=== PATIENT | female | born 1975 | race Caucasian/White ===

== ENCOUNTER → 2018-03-24 10:40 | Outpatient (CLI) | payer BC, SELFPAY ==
[2018-03-24 11:02] LABS: Basophils % 0.4 % (0.1-2.0); Eosinophils # 0.1 K/mm3 (0.0-0.4); Eosinophils % 0.8 % (0.1-12.0); Hemoglobin 13.2 g/dL (12.2-16.2); Lymphocytes # 1.8 K/mm3 (0.7-4.5); Lymphocytes % 21.7 K/mm3 (10-50); Mean Corpuscular HGB Conc 33.8 g/dL (31.8-35.4); Mean Corpuscular Hemoglobin 28.9 pg (27.0-31.2); Mean Corpuscular Volume 85.5 fl (81-99); Mean Platelet Volume 7.6 fl (7.4-10.4); Monocytes # 0.3 K/mm3 (0.1-1.0); Monocytes % 3.7 % (1.7-9.3); Neutrophils % 73.4 % (37.0-80.0); Platelet Count 347 K/mm3 (142-424); Red Blood Count 4.57 M/mm3 (4.20-5.40); Red Cell Distribution Width 12.7 % (11.5-17.5); White Blood Count 8.1 K/mm3 (4.8-10.8)
[2018-03-24 12:10] LABS: Alanine Aminotransferase 11 U/L (12-78); Albumin Level 3.3 gm/dL (3.4-5.0); Albumin/Globulin Ratio 0.9 (1.1-1.8); Alkaline Phosphatase 63 U/L (46-116); Anion Gap 15.4 mEq/L (5-15); Aspartate Amino Transferase 9 U/L (15-37); Bilirubin,Total 0.3 mg/dL (0.2-1.0); Blood Urea Nitrogen 9 mg/dL (7-18); Carbon Dioxide 23 mmol/L (21.0-32.0); Chloride 106 mmol/L (98-107); Chol/HDL Ratio 3.3 (1-3.5); Cholesterol 206 mg/dL (140-200); Creatinine,Serum 0.69 mg/dL (0.55-1.02); Estimated Glomerular Filt Rate 94 ml/min (>60); GFR (African American) 113 ML/MIN (>60); Globulin 3.7 gm/dl (1.3-3.2); Glucose 88 mg/dL (74-106); HDL Cholesterol 63 mg/dL (29-89); LDL Cholesterol 118 mg/dL (0-130); Potassium 4.4 mmoL/L (3.5-5.1); Sodium 140 mmol/L (136-145); Triglycerides 123 mg/dL (30-200); VLDL Cholesterol 25 mg/dL (0-40)
== END ==
PROVIDERS: Visit Provider Nurse Practitioner Obstetrics & Gynecology
DX: Z01.419 Encounter for gynecological examination (general) (routine) without abnormal findings (principal)
CPT/HCPCS: 36415; 80053; 80061; 85025

== ENCOUNTER → 2018-03-30 09:52 | Outpatient (CLI) | payer BC, SELFPAY ==
--- NOTE | 2018-03-30 09:54 | MM_ITS ---
MM Dig screening mamm BI w/CAD CAD Screening COMPARISON: None, this is baseline INDICATION: There is no personal or family history of breast cancer TECHNIQUE: Standard CC and MLO images were obtained. R2 CAD reviewed. FINDINGS: Prominent diffuse heterogenic fiber glandular densities are seen throughout both breasts primarily upper outer quadrants. There is a mole marker left breast. There is no suspicious lesion in either breast and there are no suspicious microcalcifications. IMPRESSION: Heterogenic the dense parenchymal pattern somewhat lessening the sensitivity mammography with no suspicious lesion seen BI-RADS Category: 1 Negative RECOMMENDED FOLLOW-UP: 1YR - 1 YEAR FOLLOW-UP (A letter has been sent to the patient regarding results of the study.)
== END ==
PROVIDERS: Family Provider Family Medicine; PCP Family Medicine; Visit Provider Nurse Practitioner Obstetrics & Gynecology
DX: Z12.31 Encounter for screening mammogram for malignant neoplasm of breast (principal)
CPT/HCPCS: 77067

== ENCOUNTER → 2019-06-24 10:55 | Outpatient (CLI) | payer BC, SELFPAY ==
[2019-06-24 11:47] LABS: Basophils # 0.1 K/mm3 (0-0.2); Basophils % 0.5 % (0.1-2.0); Eosinophils % 0.5 % (0.1-12.0); Hematocrit 41.6 % (37.0-47.0); Hemoglobin 13.6 g/dL (12.2-16.2); Lymphocytes # 2.2 K/mm3 (0.7-4.5); Lymphocytes % 25.3 % (10-50); Mean Corpuscular HGB Conc 32.7 g/dL (31.8-35.4); Mean Corpuscular Hemoglobin 28.2 pg (27.0-31.2); Mean Corpuscular Volume 86.5 fl (81-99); Mean Platelet Volume 7.3 fl (7.4-10.4); Monocytes # 0.4 K/mm3 (0.1-1.0); Monocytes % 4.2 % (1.7-9.3); Neutrophils % 69.4 % (37.0-80.0); Platelet Count 373 K/mm3 (142-424); Red Blood Count 4.81 M/mm3 (4.20-5.40); Red Cell Distribution Width 12.9 % (11.5-17.5); White Blood Count 8.7 K/mm3 (4.8-10.8)
[2019-06-24 15:19] LABS: Albumin Level 3.2 gm/dL (3.4-5.0); Albumin/Globulin Ratio 0.9 (1.1-1.8); Alkaline Phosphatase 64 U/L (46-116); Anion Gap 15.4 mEq/L (5-15); Aspartate Amino Transferase 8 U/L (15-37); Bilirubin,Total 0.3 mg/dL (0.2-1.0); Blood Urea Nitrogen 11 mg/dL (7-18); Calcium 8.9 mg/dL (8.5-10.1); Carbon Dioxide 25 mmol/L (21.0-32.0); Chloride 102 mmol/L (98-107); Cholesterol 203 mg/dL (140-200); Creatinine,Serum 0.74 mg/dL (0.55-1.02); Estimated Glomerular Filt Rate 86 ml/min (>60); Free Thyroxine Index 3.6 ug/dL (5.93-13.13); GFR (African American) 104 ML/MIN (>60); Globulin 3.7 gm/dl (1.3-3.2); Glucose 78 mg/dL (74-106); Potassium 4.4 mmoL/L (3.5-5.1); Sodium 138 mmol/L (136-145); T4 (Thyroxine) 13.7 ug/dl (4.7-13.3); Thyroid Stimulating Hormone 2.48 uIU/ml (0.358-3.740); Total Protein,Serum 6.9 gm/dL (6.4-8.2); Triglycerides 188 mg/dL (30-200); Triiodothryronine (T3) Uptake 26 % (31-39); VLDL Cholesterol 38 mg/dL (0-40)
[2019-06-24 15:53] LABS: Alanine Aminotransferase 14 U/L (12-78); Chol/HDL Ratio 4.4 (1-3.5); HDL Cholesterol 46 mg/dL (29-89); LDL Cholesterol 119 mg/dL (0-130)
== END ==
PROVIDERS: Visit Provider Nurse Practitioner Obstetrics & Gynecology
DX: Z01.419 Encounter for gynecological examination (general) (routine) without abnormal findings (principal); R53.82 Chronic fatigue, unspecified
CPT/HCPCS: 36415; 80053; 80061; 84436; 84443; 84479; 85025

== ENCOUNTER → 2019-08-16 08:34 | Outpatient (POV) | payer BC, SELFPAY | PROVIDERS: Visit Provider Dermatology | DX: Z00.00 Encounter for general adult medical examination without abnormal findings (principal) ==

== ENCOUNTER → 2019-08-30 09:44 | Outpatient (POV) | payer BC, SELFPAY | PROVIDERS: Visit Provider Dermatology | DX: Z00.00 Encounter for general adult medical examination without abnormal findings (principal) ==

== ENCOUNTER → 2019-09-13 10:37 | Outpatient (POV) | payer BC, SELFPAY | PROVIDERS: Visit Provider Dermatology | DX: Z00.00 Encounter for general adult medical examination without abnormal findings (principal) ==

== ENCOUNTER → 2019-10-11 08:37 | Outpatient (POV) | payer BC, SELFPAY | PROVIDERS: Visit Provider Dermatology | DX: Z00.00 Encounter for general adult medical examination without abnormal findings (principal) ==

== ENCOUNTER 2020-10-31 16:57 | Emergency (ER) | payer BC, SELFPAY ==
[2020-10-31 17:05] VITALS: BP 156/76; PULSE 77; RESP 20; TEMP 36.3; O2SAT 96; BMI 40.7
[2020-10-31 17:27] VITALS: BP 156/76; PULSE 77; RESP 20; TEMP 36.3; O2SAT 96
--- NOTE | 2020-10-31 17:35 | HMH.EDUTC ---
[facility] Disposition Clinical Impression: Exposure to COVID-19 virus, Viral syndrome Disposition: Home, Self-Care Condition on Discharge: Good Instructions: Preventing the Spread of Coronavirus Discharge Instructions Additional Instructions: Drink plenty of fluids. Take tylenol for pain or fever. Return if you begin to have difficulty breathing. Follow up with your regular doctor. GO TO THE ER FOR ANY WORSENING SYMPTOMS Referrals: Harlan Babb MD [Primary Care Provider] - Time of Disposition: 17:36 Medical Decision Making - Medical Records Medical records reviewed: No: I reviewed the patient's medical records. - Jose Inquiry Pt receiving controlled substance: No Vital Signs: 10/31/20 17:05 10/31/20 17:27 Temperature 97.3 F L 97.3 F L Temperature Source Temporal Artery Scan Pulse Rate 77 Pulse Rate [Left Brachial] 77 Respiratory Rate 20 20 Blood Pressure 156/76 H Blood Pressure [Left Arm] 156/76 H Blood Pressure Mean [Left Arm] 102 Blood Pressure Source [Left Arm] Automatic Cuff Blood Pressure Position [Left Arm] Sitting 02 Sat by Pulse Oximetry 96 Oxygen Delivery Method Room Air Orders (Tests/Meds): ORDERS Category Date Time Status Covid-19 Nasal PCR Sendout P&C Routine Lab 10/31/20 17:10 Received [facility] HPI - General Stated complaint: COVID TEST Time Seen by Provider: 10/31/20 17:35 Mode of Arrival: Ambulatory Limitations: No Limitations Description of Symptoms (Recalled from Triage Doc. by RN): PATIENT REQUESTING COVID TEST D/T BEING EXPOSED; C/O NASAL CONGESTION HEENT Symptoms (Recalled from RN notes): Yes Resp Symptoms (Recalled from RN notes): No Skin Symptoms (Recalled from RN notes): No MS Symptoms (Recalled from RN notes): No Functional Status (Recalled from RN notes): WNL - History of Present Illness Provider Complaint: She denies symptoms other than some nasal congestion that started yesterday. - Related Data Previous Rx's Medication Instructions Recorded norgestimate 0.25 mg-ethinyl 1 tab PO DAILY #84 tab 07/13/20 estradiol 35 mcg tablet Allergies Allergy/AdvReac Type Severity Reaction Status Date / Time Penicillins [PENICILLINS] Allergy Unknown Verified 11/24/19 09:02 - Worker's Comp Is this a Worker's Comp case?: No [facility] History - Hepatitis A Screen Drug use history?: No High risk sexual behaviors?: No History of sexually transmitted infection?: No Currently employed?: No Childcare worker?: No Do you have indoor plumbing?: Yes Do you have electricity?: Yes Attestation statement:: This patient has been screened for Hepatitis A risk factors. I have reviewed the patient's past medical history: Yes Medical History: Denies:: Diabetes Mellitus Type 2, Hypertension Other Surgeries: Yes: Other Comment: Cyst Removed from scalp - Social History Smoking Status: Never smoker Alcohol Intake: never Occupational Status: other Housing: house Family Hx:: Other Comment: Arthritis Comment: H/O Infertility ROS Obtained: Yes All systems reviewed & no additional complaints - Constitutional Constitutional: Reports system reviewed and no additional complaints, except as docu - Eyes Eyes: Reports system reviewed and no additional complaints, except as docu - ENT Ears, Nose, Mouth, and Throat: Reports system reviewed and no additional complaints, except as docu - Cardiovascular Cardiovascular: Reports system reviewed and no additional complaints, except as docu - Respiratory Respiratory: Yes system reviewed and no additional complaints, except as docu - Gastrointestinal Gastrointestingal: Reports: system reviewed and no additional complaints, except as docu Physical Exam - General General appearance: alert, in no apparent distress - Head Head exam: atraumatic, normocephalic, normal inspection - Eye Eye exam: Present: normal appearance, PERRL, EOMI - ENT ENT exam: Present: normal exam, n
== END 2020-10-31 17:50 | disposition home or self-care (01) ==
PROVIDERS: Emergency Provider Nurse Practitioner Family; PCP Family Medicine
DX: Z20.828 Contact with and (suspected) exposure to other viral communicable diseases (principal); Z88.0 Allergy status to penicillin
CPT/HCPCS: 99201; U0003; U0004

== ENCOUNTER 2021-07-06 15:25 | Emergency (ER) | payer BC, SELFPAY ==
[2021-07-06 17:29] VITALS: BP 151/80; PULSE 82; RESP 16; TEMP 36.5; O2SAT 100; BMI 43.0
--- NOTE | 2021-07-06 17:34 | HMH.EDUTC ---
[facility] [place] Clinical Impression: Superficial abrasion Fall Qualifiers: Encounter type: initial encounter Qualified Code(s): W19.XXXA - Unspecified fall, initial encounter Left wrist sprain Qualifiers: Encounter type: initial encounter Qualified Code(s): S63.502A - Unspecified sprain of left wrist, initial encounter Contusion of left forearm Qualifiers: Encounter type: initial encounter Qualified Code(s): S50.12XA - Contusion of left forearm, initial encounter Contusion of right knee Qualifiers: Encounter type: initial encounter Qualified Code(s): S80.01XA - Contusion of right knee, initial encounter Disposition: Home, Self-Care Condition on Discharge: Good Instructions: DI for Abrasion, DI for Knee Pain Additional Instructions: Rest the extremity, apply ice for 15 minutes as tolerated three or four times per day, Wear the sobeida wrap for compression, Elevate the extremity as tolerated while you are resting. Take ibuprofen for pain. I sent in a prescription to your pharmacy. Follow up with Dr. Gonzalez (orthopedics). I put in a referral but you need to call his office and schedule an appointment. Follow up with your regular doctor. GO TO THE ER FOR ANY WORSENING SYMPTOMS Prescriptions: Ibuprofen [Ibuprofen 800mg Tablet] 800 mg PO Q8HP PRN #30 tab PRN Reason: Moderate Pain Transmission Status: Received by [id number] Referrals: Harlan Babb MD [Primary Care Provider] - Kyler Gonzalez MD [Staff Physician] - Time of Disposition: 18:56 Medical Decision Making - Medical Records Medical records reviewed: No: I reviewed the patient's medical records. - Jose Inquiry Pt receiving controlled substance: No Vital Signs: 07/06/21 17:29 07/06/21 19:19 Temperature 97.7 F 98 F Temperature Source Oral Pulse Rate 82 Pulse Rate [Left] 82 Respiratory Rate 16 16 Blood Pressure 150/74 H Blood Pressure [Right Arm] 151/80 H Blood Pressure Mean [Right Arm] 103 02 Sat by Pulse Oximetry 100 Orders (Tests/Meds): ED MEDICATIONS Discontinued Medications Generic Name Dose Route Start Last Admin Trade Name Freq PRN Reason Stop Dose Admin Tetanus/Reduced Diphtheria/Acell Pertussis 0.5 ml 07/06/21 18:26 07/06/21 19:06 Tet/Diphth/Pert-Adult 0.5ml Syringe IM 07/06/21 18:27 0.5 ml .ONCE ONE Administration - Radiology Data #1 Image(s): Forearm Image Reviewed: Yes I reviewed the patient's radiology image, Yes I have reviewed radiologist's interpretation Preliminary Findings: No Fracture Seen PROCEDURE INFORMATION: Exam: XR Left Forearm Exam date and time: 07/06/2021 5:37 PM Age: 45 years old Clinical indication: Injury or trauma; Fall; Blunt trauma (contusions or hematomas); Wrist; Left; Injury date: 07/06/21; Additional info: Fall, left forearm pain TECHNIQUE: Imaging protocol: XR Left forearm. Views: 2 views. COMPARISON: No relevant prior studies available. FINDINGS: Bones/joints: Normal. Soft tissues: Normal. IMPRESSION: No acute findings. #2 Image(s): Wrist Image Reviewed: Yes I reviewed the patient's radiology image, Yes I have reviewed radiologist's interpretation Preliminary Findings: Normal/NAD PROCEDURE INFORMATION: Exam: XR Left Wrist Exam date and time: 07/06/2021 5:37 PM Age: 45 years old Clinical indication: Injury or trauma; Fall; Blunt trauma (contusions or hematomas); Arm, lower; Left; Injury date: 07/06/21; Additional info: Fall, left wrist pain. TECHNIQUE: Imaging protocol: XR Left wrist. Views: 3 or more views. COMPARISON: CR XR FOREARM LT 2V 07/06/2021 5:59 PM FINDINGS: Bones/joints: Normal. Soft tissues: Normal. IMPRESSION: No acute findings. #3 Image(s): Knee Image Reviewed: Yes I reviewed the patient's radiology i
--- NOTE | 2021-07-06 17:37 | XR_ITS ---
PROCEDURE INFORMATION: Exam: XR Left Forearm Exam date and time: 07/06/2021 5:37 PM Age: 45 years old Clinical indication: Injury or trauma; Fall; Blunt trauma (contusions or hematomas); Wrist; Left; Injury date: 07/06/21; Additional info: Fall, left forearm pain TECHNIQUE: Imaging protocol: XR Left forearm. Views: 2 views. COMPARISON: No relevant prior studies available. FINDINGS: Bones/joints: Normal. Soft tissues: Normal. IMPRESSION: No acute findings.
--- NOTE | 2021-07-06 17:37 | XR_ITS ---
PROCEDURE INFORMATION: Exam: XR Right Knee Exam date and time: 07/06/2021 5:37 PM Age: 45 years old Clinical indication: Injury or trauma; Fall; Blunt trauma; Knee; Bilateral; Injury date: 07/06/21; Additional info: Fall, right knee pain TECHNIQUE: Imaging protocol: XR Right knee. Views: 3 views. COMPARISON: No relevant prior studies available. FINDINGS: Bones/joints: Normal. Soft tissues: Normal. IMPRESSION: No acute findings.
--- NOTE | 2021-07-06 17:37 | XR_ITS ---
PROCEDURE INFORMATION: Exam: XR Left Wrist Exam date and time: 07/06/2021 5:37 PM Age: 45 years old Clinical indication: Injury or trauma; Fall; Blunt trauma (contusions or hematomas); Arm, lower; Left; Injury date: 07/06/21; Additional info: Fall, left wrist pain. TECHNIQUE: Imaging protocol: XR Left wrist. Views: 3 or more views. COMPARISON: CR XR FOREARM LT 2V 07/06/2021 5:59 PM FINDINGS: Bones/joints: Normal. Soft tissues: Normal. IMPRESSION: No acute findings.
--- NOTE | 2021-07-06 17:37 | XR_ITS ---
PROCEDURE INFORMATION: Exam: XR Left Knee Exam date and time: 07/06/2021 5:37 PM Age: 45 years old Clinical indication: Injury or trauma; Fall; Blunt trauma; Knee; Bilateral; Injury date: 07/06/21; Additional info: Fall, left knee pain TECHNIQUE: Imaging protocol: XR Left knee. Views: 3 views. COMPARISON: No relevant prior studies available. FINDINGS: Bones/joints: Normal. Soft tissues: Normal. IMPRESSION: No acute findings.
[2021-07-06 19:19] VITALS: BP 150/74; PULSE 82; RESP 16; TEMP 36.6
== END 2021-07-06 19:20 | disposition home or self-care (01) ==
PROVIDERS: Emergency Provider Nurse Practitioner Family; PCP Family Medicine
DX: S63.502A Unspecified sprain of left wrist, initial encounter (principal); S50.12XA Contusion of left forearm, initial encounter; S80.01XA Contusion of right knee, initial encounter; Z23 Encounter for immunization; W01.0XXA Fall on same level from slipping, tripping and stumbling without subsequent striking against object, initial encounter; Y92.89 Other specified places as the place of occurrence of the external cause
CPT/HCPCS: 73090; 73110; 73562; 90471; 90715; 99202; G0463

== ENCOUNTER → 2021-09-17 11:14 | Outpatient (CLI) | payer BC, SELFPAY ==
[2021-09-17 11:32] LABS: Basophils # 0.1 K/mm3 (0-0.2); Basophils % 0.7 % (0.1-2.0); Eosinophils # 0.1 K/mm3 (0.0-0.4); Eosinophils % 0.7 % (0.1-12.0); Hematocrit 42.6 % (37.0-47.0); Hemoglobin 13.4 g/dL (12.2-16.2); Lymphocytes # 2.2 K/mm3 (0.7-4.5); Lymphocytes % 22.1 % (10-50); Mean Corpuscular HGB Conc 31.4 g/dL (31.8-35.4); Mean Corpuscular Hemoglobin 28.7 pg (27.0-31.2); Mean Corpuscular Volume 91.6 fl (81-99); Mean Platelet Volume 8.1 fl (7.4-10.4); Monocytes # 0.4 K/mm3 (0.1-1.0); Monocytes % 3.9 % (1.7-9.3); Neutrophils % 72.6 % (37.0-80.0); Platelet Count 408 K/mm3 (142-424); Red Blood Count 4.66 M/mm3 (4.20-5.40); Red Cell Distribution Width 13.2 % (11.5-17.5); White Blood Count 9.7 K/mm3 (4.8-10.8)
[2021-09-17 13:10] LABS: Alanine Aminotransferase 10 U/L (12-78); Albumin/Globulin Ratio 1.4 (1.1-1.8); Alkaline Phosphatase 78 U/L (38-126); Anion Gap 13.7 mEq/L (5-15); Aspartate Amino Transferase 18 U/L (14-36); Bilirubin,Total 0.3 mg/dl (0.2-1.3); Blood Urea Nitrogen 10 mg/dl (7-17); Calcium 9.4 mg/dl (8.4-10.2); Carbon Dioxide 28 mmol/L (22.0-30.0); Chloride 100 mmol/L (98-107); Chol/HDL Ratio 2.8 (1-3.5); Cholesterol 235 mg/dl (140-200); Estimated Glomerular Filt Rate 109 ml/min (>60); GFR (African American) 131 ML/MIN (>60); Globulin 2.9 g/dL (1.3-3.2); Glucose 91 mg/dl (74-100); HDL Cholesterol 84 mg/dl (40-60); Potassium 4.7 mmoL/L (3.5-5.1); Sodium 137 mmol/L (136-145); Total Protein,Serum 6.9 g/dl (6.3-8.2); Triglycerides 163 mg/dl (30-150); VLDL Cholesterol 33 mg/dL (0-40)
[2021-09-17 13:21] LABS: Direct LDL Cholesterol 137.08 mg/dL (100-129)
[2021-09-17 13:28] LABS: Free Thyroxine Index 3.5 ug/dL (5.93-13.13); T4 (Thyroxine) 14.7 ug/dl (5.53-11.0); Triiodothryronine (T3) Uptake 24 % (23.5-40.5)
[2021-09-17 13:41] LABS: Thyroid Stimulating Hormone 2.32 uIU/mL (0.465-4.68)
== END ==
PROVIDERS: Visit Provider Nurse Practitioner Obstetrics & Gynecology
DX: Z01.419 Encounter for gynecological examination (general) (routine) without abnormal findings (principal); R53.82 Chronic fatigue, unspecified; R63.5 Abnormal weight gain
CPT/HCPCS: 36415; 80053; 80061; 84436; 84443; 84479; 85025

== ENCOUNTER 2022-11-26 08:24 | Emergency (ER) | payer BC, SELFPAY ==
[2022-11-26 08:35] VITALS: BP 171/87; PULSE 75; RESP 20; TEMP 36.7; O2SAT 98; BMI 42.3
--- NOTE | 2022-11-26 08:43 | XR_ITS ---
FINAL REPORT CLINICAL HISTORY: pain, twisted ankle yesterday, medial and lateral pain COMPARISON: none FINDINGS: AP, oblique, and lateral views of the right ankle were obtained. There is no prior exam for comparison. There is no fracture or dislocation. The ankle mortise is intact. There is mild degenerative disease. Soft tissues are normal. IMPRESSION: No acute osseous abnormality of the right ankle. Reviewed, Interpreted and Dictated by Bee Moffett MD Transcribed by Hetal Nunez Authenticated and [facility]
--- NOTE | 2022-11-26 08:46 | EXP.UTC ---
Discharge Plan Disposition Patient Disposition: Home, Self-Care Condition: Good Prescriptions Prescriptions: New ibuprofen [ibuprofen] 600 mg tablet 600 mg PO Q6HP PRN (Reason: Mild Pain) Qty: 30 0RF No Action norgestimate-ethinyl estradiol [Sprintec (28)] 0.25-35 mg-mcg tablet See Rx Instructions .ROUTE .COMPLEX Rx Instructions: Take 1 tablet by mouth once daily Referrals Follow up/Referrals: Harlan Babb MD [Primary Care Provider] - See instructions Joann Caldwell DPM [Staff Physician] - See instructions Activity Restrictions/Add. Instructions Additional Instructions/Restrictions: Rest the extremity, apply ice for 15 minutes as tolerated three or four times per day, Elevate the extremity as tolerated while you are resting. Take ibuprofen for pain. I sent in a prescription to your pharmacy. Follow up with Dr. Caldwell (podiatry). I put in a referral but you need to call her office and schedule an appointment. Follow up with your regular doctor. GO TO THE ER FOR ANY WORSENING SYMPTOMS Clinical Impressions Clinical Impression: Right ankle sprain Stand Alone Forms Stand Alone Forms: Work/School Release Instructions Patient Instructions: Ankle Sprain, DI for Ankle Sprain Discharge ED Provider: Bola Joseph [facility] General Stated complaint: [id number] 15:30 RIGHT ANKLE PAIN Time Seen by Provider: 11/26/22 08:44 History of Present Illness Provider Complaint: She states that yesterday she twisted her right ankle and foot. She has had pain and swelling there since. Related Data Home Medications Medication Instructions Recorded Confirmed norgestimate 0.25 mg-ethinyl See Rx Instructions .Route 11/26/22 11/26/22 estradiol 35 mcg tablet (Sprintec .COMPLEX . (28)) Previous Rx's Medication Instructions Recorded ibuprofen 600 mg tablet 600 mg PO Q6HP PRN Mild Pain #30 11/26/22 tabs Allergies Allergy/AdvReac Type Severity Reaction Status Date / Time Penicillins [PENICILLINS] Allergy Unknown Verified 11/26/22 08:50 [facility] Disclaimer: The information contained in this section may have been updated after the patient was seen, as this information can be updated by other users. Social History Smoking Status: Never smoker alcohol intake: never current occupational status: other Travel in the last 8 weeks: None housing: house ROS Obtained: Yes All systems reviewed & no additional complaints except as documented Constitutional Constitutional: Denies chills and Denies fever(s) Integumentary/Breasts Skin/Breast: Denies redness, Denies rash and Denies wounds Neurologic Neurologic: Denies paresthesias Physical Exam General General appearance: alert and in no apparent distress Head Head exam: atraumatic, normocephalic and normal inspection Eye Eye exam: Present normal appearance, PERRL and EOMI ENT ENT exam: Present normal exam, normal oropharynx, mucous membranes moist, TM's normal bilaterally and normal external ear exam Neck Neck exam: Present normal inspection, full ROM and trachea midline; Absent meningismus or lymphadenopathy Chest Chest inspection: Present normal inspection and symmetric chest wall rise; Absent tenderness Respiratory Respiratory exam: Present normal lung sounds bilaterally; Absent respiratory distress Cardiovascular Cardiovascular exam: Present regular rate and normal rhythm; Absent JVD Abdominal Exam Abdominal exam: Present soft and normal bowel sounds; Absent distention, tenderness or guarding Extremities Exam Extremities exam: Present normal capillary refill; Absent calf tenderness Expanded Lower Extremity Exam Right: Hip/Pelvis exam: Present normal inspection and full ROM; Absent tenderness Upper leg exam: Present normal inspection and full ROM; Absent tenderness Knee exam: Present normal inspection and full ROM; Absent tenderness
[2022-11-26 09:51] VITALS: BP 171/87; PULSE 75; RESP 20; TEMP 36.7; O2SAT 98
== END 2022-11-26 09:51 | disposition home or self-care (01) ==
PROVIDERS: Emergency Provider Nurse Practitioner Family; PCP Family Medicine
DX: S93.401A Sprain of unspecified ligament of right ankle, initial encounter (principal)
CPT/HCPCS: 73610; 99212; 99213; G0463

== ENCOUNTER 2023-01-09 08:30 | Outpatient (RCR) | payer BC, SELFPAY ==
--- NOTE | 2022-12-18 11:38 | HMH.PTOPEV ---
PT Outpatient Evaluation Rehab PT Outpatient Evaluation Start: 12/18/22 10:40 Freq: Status: Active Protocol: Document 12/18/22 11:19 ALICIA (Rec: 12/18/22 11:36 PHORJO [email or web address]) E-signed By Wayne Scruggs, PT Outpatient Therapy Subjective History Subjective History This is the initial PT eval for Leena Henson 47 yowf who presents with c/o pain and stiffness in the R ankle x ~ 3 wks. Pt reports, I stepped off of a bleacher wrong and I think I rolled my ankle. It hurt so bad when I first did it. She reports pain is significantly decreased now and she has been wearing aircast as prescribed by MD. She reports only difficulty with walking on incline surfaces and stairs now. She reports no significant PMH and X-rays taken at time of injury were negative for fx. Chief Complaint Pain,Stiff Symptom Type Ache Symptoms Relieved By Rest/Positioning Symptoms Aggravated By Physical Activity,Walking Prior Functional Limitations None Current Functional Limitations Walking,Stairs Symptom Description Intermittent,Activity Dependent Level of pain today (0-10) 0 Pain scale - at its worst (0-10) 4 Ankle/Foot Eval Palpation Tenderness right Ankle/Foot Palpation Findings Tenderness Ankle/Foot Palpation Overall Comment R post tib tendon 2/4. ATF TTP negative PTF TTP negative CF TTP negative Deltoid ligament TTP negative ROM Ankle/Foot Dorsiflexion w/Knee Extended 0 Active Range Motion (degrees) Ankle/Foot Plantar Flexion Active Range 0-40 of Motion (degrees) Ankle/Foot Eversion Active Range of 0-18 Motion (degrees) Ankle/Foot Inversion Active Range of 0-38 Motion (degrees) MMT Ankle Dorsiflexion Strength Grade 5 Normal Ankle Plantarflexion Strength Grade 5 Normal Foot Eversion Strength Grade 5 Normal Foot Inversion Strength Grade 5 Normal Special Tests Ankle Anterior Drawer Test Negative Left,Negative Right Ankle Eversion Test Negative Left,Negative Right Talar Tilt Test Negative Left,Negative Right Ankle Inversion (supination) Test Negative Left,Negative Right Ankle Posterior Drawer Test Negative Left,Negative Right
== END 2023-01-09 08:35 | disposition home or self-care (01) ==
LOC: PT 08:30
PROVIDERS: PCP Family Medicine; Visit Provider Podiatrist
DX: M25.571 Pain in right ankle and joints of right foot (principal); S99.911A Unspecified injury of right ankle, initial encounter
CPT/HCPCS: 97035; 97110; 97163; 97530

== ENCOUNTER → 2023-03-26 10:28 | Outpatient (CLI) | payer BC, SELFPAY ==
[2023-03-26 11:00] LABS: Basophils # 0.1 K/mm3 (0-0.2); Basophils % 0.5 % (0.1-2.0); Eosinophils # 0.1 K/mm3 (0.0-0.4); Eosinophils % 0.8 % (0.1-12.0); Hematocrit 41.4 % (37.0-47.0); Hemoglobin 13.7 g/dL (12.2-16.2); Lymphocytes # 2.3 K/mm3 (0.7-4.5); Lymphocytes % 23.1 % (10-50); Mean Corpuscular HGB Conc 33.2 g/dL (31.8-35.4); Mean Corpuscular Hemoglobin 28.9 pg (27.0-31.2); Mean Platelet Volume 8.2 fl (7.4-10.4); Monocytes # 0.5 K/mm3 (0.1-1.0); Monocytes % 5.2 % (1.7-9.3); Neutrophils % 70.4 % (37.0-80.0); Platelet Count 416 K/mm3 (142-424); Red Blood Count 4.76 M/mm3 (4.20-5.40)
[2023-03-26 11:32] LABS: Alanine Aminotransferase 15 U/L (12-78); Albumin Level 3.8 g/dl (3.5-5.0); Albumin/Globulin Ratio 1.4 (1.1-1.8); Alkaline Phosphatase 84 U/L (38-126); Anion Gap 16.5 mEq/L (5-15); Aspartate Amino Transferase 20 U/L (14-36); Bilirubin,Total 0.4 mg/dl (0.2-1.3); Blood Urea Nitrogen 11 mg/dl (7-17); Calcium 8.9 mg/dl (8.4-10.2); Carbon Dioxide 27 mmol/L (22.0-30.0); Chloride 98 mmol/L (98-107); Estimated Glomerular Filt Rate 90 ml/min (>60); GFR (African American) 109 ML/MIN (>60); Globulin 2.8 g/dL (1.3-3.2); Glucose 91 mg/dl (74-100); HDL Cholesterol 79 mg/dl (40-60); Potassium 4.5 mmoL/L (3.5-5.1); Sodium 137 mmol/L (136-145); Total Protein,Serum 6.6 g/dl (6.3-8.2)
[2023-03-26 13:29] LABS: Hemoglobin A1C 5.4 % (4.0-6.0)
== END ==
PROVIDERS: PCP Family Medicine; Visit Provider Nurse Practitioner Obstetrics & Gynecology
DX: E66.01 Morbid (severe) obesity due to excess calories (principal); Z68.41 Body mass index [BMI] 40.0-44.9, adult; Z79.899 Other long term (current) drug therapy
CPT/HCPCS: 36415; 80053; 83036; 83718; 85025

== ENCOUNTER 2024-05-23 15:47 | Observation (INO) | payer BC, SELFPAY ==
[2024-05-23] VITALS (30 sets, daily range): BP systolic 123–167; BP diastolic 74–100; PULSE 68–94; RESP 18–20; TEMP 36.7–36.9; O2SAT 91–100; BMI 43.5; BMI 44.4
--- NOTE | 2024-05-23 15:48 | [facility].EDCP ---
Discharge Plan Disposition Patient Disposition: Admitted Condition: Good Clinical Impressions Clinical Impression: Bilateral pneumonia Qualifiers: Pneumonia type: due to unspecified organism Lung location: lower lobe of lung Qualified Code(s): J18.9 - Pneumonia, unspecified organism Chest pain Qualifiers: Chest pain type: unspecified Qualified Code(s): R07.9 - Chest pain, unspecified Clinical Impression: (Ruled Out): Encounter for Routine Gynecological Examination Discharge ED Provider: Sherif Lee HPI <CECE Oconnell - Last Filed: 05/23/24 20:40> General Chief Complaint: Recheck/Abnormal Lab/Rx Stated Complaint: Chest discomfort,sent by Bebe Montemayor Time Seen by Provider: 05/23/24 15:48 History of Present Illness HPI narrative: Patient presents from PCPs office for evaluation of initially chest pain . Patient gives a 1 week history of initially upper respiratory congestion and ear fullness that progressed to a nonproductive cough and now has moved to chest pain with coughing. She does not have chest pain at rest. She denies shortness of breath subjective fever chills hemoptysis hematochezia melena hematemesis hematuria. She has a history of being a never smoker and is only on oral control medicine. Related Data Previous Rx's Medication Instructions Recorded norgestimate 0.25 mg-ethinyl See Rx Instructions .Route 02/10/24 estradiol 35 mcg tablet (Sprintec .COMPLEX #84 tabs (28)) Allergies Allergy/AdvReac Type Severity Reaction Status Date / Time Penicillins [PENICILLINS] Allergy Unknown Verified 05/04/23 11:21 [facility] <CECE Oconnell - Last Filed: 05/23/24 20:40> [facility] Disclaimer: The information contained in this section may have been updated after the patient was seen, as this information can be updated by other users. Medical History (Updated 05/23/24 @ 20:35 by CECE Oconnell) Obesity, Class II, BMI 35-39.9 Surgical History (Updated 05/04/23 @ 11:22 by SPENCER Elizabeth) No history of previous surgery Family History (Updated 05/04/23 @ 11:22 by SPENCER Elizabeth) Other No significant family history Social History (Reviewed 05/04/23 @ 11:17 by ARON Elizabeth Smoking Status: Never smoker alcohol intake: never current occupational status: other Travel in the last 8 weeks: None housing: house <CECE Oconnell - Last Filed: 05/23/24 20:40> ROS Obtained: Yes Systems reviewed as appropriate & no additional complaints except as documented Physical Exam <CECE Oconnell - Last Filed: 05/23/24 20:40> General General appearance: alert and in no apparent distress Eye Eye exam: Present normal appearance and EOMI ENT ENT exam: Present normal exam, normal oropharynx, mucous membranes moist and TM's normal bilaterally Neck Neck exam: Present normal inspection and full ROM Chest Chest inspection: Present normal inspection and symmetric chest wall rise; Absent tenderness Respiratory Respiratory exam: Present normal lung sounds bilaterally; Absent respiratory distress, wheezes or stridor Cardiovascular Cardiovascular exam: Present regular rate and normal rhythm Abdominal Exam Abdominal exam: Present soft and normal bowel sounds; Absent tenderness Extremities Exam Extremities exam: Present normal inspection and full ROM Back Exam Back exam: Present normal inspection and full ROM; Absent tenderness Neurological Exam Neurological exam: Present alert and oriented X3 Psychiatric Psychiatric exam: Present normal affect and normal mood Skin Skin exam: Present warm, dry and normal color HEART Score <CECE Oconnell - Last Filed: 05/23/24 20:40> HEART Score HEART Score assessment performed?: Yes History (anamnesis): Slightly suspicious ECG: Normal Age: 45-65 years Risk factors: 1-2 risk factors Troponin: </= normal limit HEART Score: 2 <Sherif Lee MD - Last Filed: 05/23/24 21:07> HEART Score HEART Score: 2 Critical Care <CECE Oconnell - Last Filed: 05/23/24 20:40> Critical Care Time Critical Care Time: No Medical Decision Making <CECE Oconnell - Last Filed: 05/23/24 20:40> Medical Records Medical records reviewed: Yes I reviewed the patient's medical records. Jose Inquiry Pt receiving controlled substance: No Vital Signs Vital Signs: 05/23/24 15:48 05/23/24 16:00 05/23/24 16:05 Temperature 98.1 F Temperature Source Oral Pulse Rate 93 H 88 Pulse Rate [Apical] 92 H Respiratory Rate 18 Blood Pressure 145/94 H 139/83 Blood Pressure [Left Arm] 153/76 H Blood Pressure Mean Blood Pressure Mean [Left Arm] 101 Blood Pressure Source [Left Arm] Automatic Cuff Blood Pressure Position [Left Arm] Sitting 02 Sat by Pulse Oximetry 99 100 93 L Oxygen Delivery Method Room Air Room Air Room Air 05/23/24 16:10 05/23/24 16:17 05/23/24 16:20 Temperature Temperature Source Pulse Rate 84 91 H 86 Pulse Rate [Apical] Respiratory Rate Blood Pressure 146/80 H 128/90 143/75 H Blood Pressure [Left Arm] Blood Pressure Mean Blood Pressure Mean [Left Arm] Blood Pressure Source [Left Arm] Blood Pressure Position [Left Arm] 02 Sat by Pulse Oximetry 97 94 L 95 Oxygen Delivery Method Room Air Room Air Room Air 05/23/24 16:25 05/23/24 16:30 05/23/24 16:35 Temperature Temperature Source Pulse Rate 86 82 68 Pulse Rate [Apical] Respiratory Rate Blood Pressure 123/85 125/82 147/76 H Blood Pressure [Left Arm] Blood Pressure Mean Blood Pressure Mean [Left Arm] Blood Pressure Source [Left Arm] Blood Pressure Position [Left Arm] 02 Sat by Pulse Oximetry 95 96 95 Oxygen Delivery Method Room Air Room Air Room Air 05/23/24 16:46 05/23/24 16:50 05/23/24 16:55 Temperature Temperature Source Pulse Rate 90 81 Pulse Rate [Apical] Respiratory Rate Blood Pressure 134/80 153/92 H 147/85 H Blood Pressure [Left Arm] Blood Pressure Mean 112 Blood Pressure Mean [Left Arm] Blood Pressure Source [Left Arm] Blood Pressure Position [Left Arm] 02 Sat by Pulse Oximetry 97 93 L Oxygen Delivery Method Room Air Room Air 05/23/24 17:00 05/23/24 17:05 05/23/24 17:10 Temperature Temperature Source Pulse Rate 86 84 85 Pulse Rate [Apical] Respiratory Rate Blood Pressure 139/88 149/86 H 153/88 H Blood Pressure [Left Arm] Blood Pressure Mean Blood Pressure Mean [Left Arm] Blood Pressure Source [Left Arm] Blood Pressure Position [Left Arm] 02 Sat by Pulse Oximetry 94 L 94 L 94 L Oxygen Delivery Method Room Air Room Air Room Air 05/23/24 17:15 05/23/24 17:20 05/23/24 17:25 Temperature Temperature Source Pulse Rate 88 90 94 H Pulse Rate [Apical] Respiratory Rate Blood Pressure 143/88 H 147/85 H 132/81 Blood Pressure [Left Arm] Blood Pressure Mean Blood Pressure Mean [Left Arm] Blood Pressure Source [Left Arm] Blood Pressure Position [Left Arm] 02 Sat by Pulse Oximetry 92 L 93 L 91 L Oxygen Delivery Method Room Air Room Air Room Air 05/23/24 17:30 05/23/24 17:35 05/23/24 17:40 Temperature Temperature Source Pulse Rate 92 H 86 84 Pulse Rate [Apical] Respiratory Rate Blood Pressure 154/80 H 160/82 H 140/81 Blood Pressure [Left Arm] Blood Pressure Mean Blood Pressure Mean [Left Arm] Blood Pressure Source [Left Arm] Blood Pressure Position [Left Arm] 02 Sat by Pulse Oximetry 93 L 95 97 Oxygen Delivery Method Room Air Room Air Room Air 05/23/24 17:45 05/23/24 18:00 05/23/24 18:05 Temperature Temperature Source Pulse Rate 84 84 85 Pulse Rate [Apical] Respiratory Rate Blood Pressure 157/85 H 146/74 H 167/96 H Blood Pressure [Left Arm] Blood Pressure Mean Blood Pressure Mean [Left Arm] Blood Pressure Source [Left Arm] Blood Pressure Position [Left Arm] 02 Sat by Pulse Oximetry 96 97 94 L Oxygen Delivery Method Room Air Room Air Room Air 05/23/24 18:10 05/23/24 18:15 05/23/24 18:20 Temperature Temperature Source Pulse Rate 84 84 84 Pulse Rate [Apical] Respiratory Rate Blood Pressure 151/85 H 154/91 H 152/85 H Blood Pressure [Left Arm] Blood Pressure Mean Blood Pressure Mean [Left Arm] Blood Pressure Source [Left Arm] Blood Pressure Position [Left Arm] 02 Sat by Pulse Oximetry 96 96 96 Oxygen Delivery Method Room Air Room Air Room Air 05/23/24 18:25 Temperature Temperature Source Pulse Rate 85 Pulse Rate [Apical] Respiratory Rate Blood Pressure 144/89 H Blood Pressure [Left Arm] Blood Pressure Mean Blood Pressure Mean [Left Arm] Blood Pressure Source [Left Arm] Blood Pressure Position [Left Arm] 02 Sat by Pulse Oximetry 96 Oxygen Delivery Method Room Air Lab Data Lab results reviewed: Yes I reviewed the patient's lab results. Labs: Lab Results 05/23/24 15:56: WBC 13.6 H, RBC 4.85, Hgb 14.1, Hct 43.6, MCV 89.8, MCH 29.1, MCHC 32.4, RDW 13.5, Plt Count 396, MPV 8.2, Neut % (Auto) 77.5, Lymph % (Auto) 16.6, [place] % (Auto) 4.5, Eos % (Auto) 1.1, Baso % (Auto) 0.4, Neut # (Auto) 10.5 H, Lymph # (Auto) 2.3, [place] # (Auto) 0.6, Eos # (Auto) 0.1, Baso # (Auto) 0.1, PT 10.4, INR 0.92, D-Dimer 1.62 H, Sodium 136, Potassium 4.0, Chloride 102, Carbon Dioxide 27, Anion Gap 11.0, BUN 8, Creatinine 0.80, Estimated Creat Clear 85, Estimated GFR 77, Est GFR ( Amer) 93, Glucose 110 H, Calcium 9.4, Magnesium 2.0, Total Bilirubin 0.9, AST 22, ALT 15, Alkaline Phosphatase 98, Troponin I < 0.01, Total Protein 8.2, Albumin 4.4, Globulin 3.8 H, Albumin/Globulin Ratio 1.2, Lipase 61, Serum HCG, Qual Negative 05/23/24 19:53: Troponin I < 0.01 05/23/24 15:56 05/23/24 15:56 Response Orders (Tests/Meds): ED MEDICATIONS Generic Name Dose Route Start Last Admin Trade Name Freq PRN Reason Stop Dose Admin Sodium Chloride 10 ml 05/23/24 17:53 05/23/24 17:54 Sodium Chloride 0.9% 10ml Syr (Rad Only) IV 06/22/24 17:52 10 ml NEEDED PRN Administration Maintain IV Site Discontinued Medications Generic Name Dose Route Start Last Admin Trade Name Freq PRN Reason Stop Dose Admin Acetaminophen 1,000 mg 05/23/24 16:05 05/23/24 16:28 Acetaminophen 1,000mg/100ml Vial IV 05/23/24 16:06 1,000 mg ONCE ONE Administration Albuterol/Ipratropium 3 ml 05/23/24 16:05 05/23/24 16:38 Ipratropium/Albuterol 3 Ml Neb IH 05/23/24 16:06 3 ml ONCE ONE Administration Belladonna Alkaloids 60 ml 05/23/24 16:05 05/23/24 16:28 Belladonna Alkaloids 60 Ml Ml PO 05/23/24 16:06 60 ml ONCE ONE Administration Dexamethasone Sodium Phosphate 10 mg 05/23/24 16:05 05/23/24 16:28 Dexamethasone 4mg/Ml 5ml Mdv IV 05/23/24 16:06 10 mg ONCE ONE Administration Sodium Chloride 500 mls @ 999 mls/hr 05/23/24 16:05 05/23/24 16:31 Sod Chlor 0.9% 1000ml Bag IV 05/23/24 16:35 999 mls/hr .Q31M ONE Administration Ceftriaxone Sodium 1 gm/ 50 mls @ 100 mls/hr 05/23/24 19:00 05/23/24 20:11 Sodium Chloride IV 05/23/24 19:29 100 mls/hr ONCE ONE Administration Azithromycin 500 mg/ Sodium 250 mls @ 250 mls/hr 05/23/24 19:00 05/23/24 20:10 Chloride IV 05/23/24 19:59 250 mls/hr ONCE ONE Administration Iopamidol 70 ml 05/23/24 17:53 05/23/24 17:54 Iopamidol-370 (76%);100ml Bottle IV 05/23/24 17:54 70 ml ONCE ONE Administration Ketorolac Tromethamine 15 mg 05/23/24 16:05 05/23/24 16:30 Ketorolac 30mg/Ml Vial IV 05/23/24 16:06 15 mg ONCE ONE Administration Sodium Chloride 50 ml 05/23/24 17:53 05/23/24 17:53 0.9 % Sodium Chloride 50 Ml Vial IV 05/23/24 17:54 50 ml ONCE ONE Administration ORDERS Category Date Time Status CT angio chest PE protocol Stat Cat Scan 05/23/24 16:40 Completed Chest XR 2 view (NOT portable) [XR chest 2V] Stat Exams 05/23/24 16:19 Completed POCUS Point of Care (ER Only) Stat Exams 05/23/24 19:55 Taken CBC w/Auto Diff [Complete Blood Count Auto Diff] Stat Lab 05/23/24 15:56 Completed CMP [Comprehensive Metabolic Panel] Stat Lab 05/23/24 15:56 Completed D-Dimer Stat Lab 05/23/24 15:56 Completed HCG Qualitative, Serum Stat Lab 05/23/24 15:56 Completed INR [Prothrombin Time INR] Stat Lab 05/23/24 15:56 Completed Lipase Stat Lab 05/23/24 15:56 Completed Magnesium Stat Lab 05/23/24 15:56 Completed Trop I [Troponin I] Stat Lab 05/23/24 15:56 Completed Troponin I Q3H Lab 05/23/24 19:53 Completed Troponin I Q3H Lab 05/23/24 22:15 Ordered Blood Culture Stat Micro 05/23/24 20:10 Received VBG [Venous Blood Gas] Stat RT 05/23/24 16:07 Ordered Tissue Perfus/Sepsis Re-Eval Sepsis Re-Evaluation Performed: Yes Date Performed: 05/23/24 Time Performed: 18:02 [facility] Narrative Medical Decision Narrative: In summary patient is a 48-year-old female who presents to the emergency department for evaluation of cough congestion and chest pain. Patient is hemodynamically stable upon arrival, afebrile. Physical exam is remarkable for nonreproducible chest pain on exam with normal breath sounds and no adventitious sounds. Differential diagnosis includes pneumonia versus ACS versus bronchitis versus PE etc. Initial workup will be conducted with hematologic labs CT PE protocol plain from chest x-ray urinalysis. Initial interventions include sepsis bolus Toradol Tylenol. Initial workup reviewed by me elevated white count and my informal interpretation of her plain film chest x-ray shows questionable pneumonia and my informal interpretation of her CT scan PE protocol does not show any obvious thrombus but does show bilateral infiltrates in the lower lobes. Radiologist called and is concerned that she has inflammation of the anterior mediastinum and around the left subclavian and axillary veins which could be concerning for thrombus however he does not explicitly see that. Upon repeat evaluation patient did report some improvement but still complaining of pain around her left shoulder blade. Given this patient will be started on anticoagulation with cardiology consult in the morning and left upper extremity ultrasound for DVT. Interactive discussion with Dr. Rincon about patient management and he has accepted for admission further evaluation and care <Sherif Lee MD - Last Filed: 05/23/24 21:07> Vital Signs Vital Signs: 05/23/24 15:48 05/23/24 16:00 05/23/24 16:05 Temperature 98.1 F Temperature Source Oral Pulse Rate 93 H 88 Pulse Rate [Apical] 92 H Respiratory Rate 18 Blood Pressure 145/94 H 139/83 Blood Pressure [Left Arm] 153/76 H Blood Pressure Mean Blood Pressure Mean [Left Arm] 101 Blood Pressure Source [Left Arm] Automatic Cuff Blood Pressure Position [Left Arm] Sitting 02 Sat by Pulse Oximetry 99 100 93 L Oxygen Delivery Method Room Air Room Air Room Air 05/23/24 16:10 05/23/24 16:17 05/23/24 16:20 Temperature Temperature Source Pulse Rate 84 91 H 86 Pulse Rate [Apical] Respiratory Rate Blood Pressure 146/80 H 128/90 143/75 H Blood Pressure [Left Arm] Blood Pressure Mean Blood Pressure Mean [Left Arm] Blood Pressure Source [Left Arm] Blood Pressure Position [Left Arm] 02 Sat by Pulse Oximetry 97 94 L 95 Oxygen Delivery Method Room Air Room Air Room Air 05/23/24 16:25 05/23/24 16:30 05/23/24 16:35 Temperature Temperature Source Pulse Rate 86 82 68 Pulse Rate [Apical] Respiratory Rate Blood Pressure 123/85 125/82 147/76 H Blood Pressure [Left Arm] Blood Pressure Mean Blood Pressure Mean [Left Arm] Blood Pressure Source [Left Arm] Blood Pressure Position [Left Arm] 02 Sat by Pulse Oximetry 95 96 95 Oxygen Delivery Method Room Air Room Air Room Air 05/23/24 16:46 05/23/24 16:50 05/23/24 16:55 Temperature Temperature Source Pulse Rate 90 81 Pulse Rate [Apical] Respiratory Rate Blood Pressure 134/80 153/92 H 147/85 H Blood Pressure [Left Arm] Blood Pressure Mean 112 Blood Pressure Mean [Left Arm] Blood Pressure Source [Left Arm] Blood Pressure Position [Left Arm] 02 Sat by Pulse Oximetry 97 93 L Oxygen Delivery Method Room Air Room Air 05/23/24 17:00 05/23/24 17:05 05/23/24 17:10 Temperature Temperature Source Pulse Rate 86 84 85 Pulse Rate [Apical] Respiratory Rate Blood Pressure 139/88 149/86 H 153/88 H Blood Pressure [Left Arm] Blood Pressure Mean Blood Pressure Mean [Left Arm] Blood Pressure Source [Left Arm] Blood Pressure Position [Left Arm] 02 Sat by Pulse Oximetry 94 L 94 L 94 L Oxygen Delivery Method Room Air Room Air Room Air 05/23/24 17:15 05/23/24 17:20 05/23/24 17:25 Temperature Temperature Source Pulse Rate 88 90 94 H Pulse Rate [Apical] Respiratory Rate Blood Pressure 143/88 H 147/85 H 132/81 Blood Pressure [Left Arm] Blood Pressure Mean Blood Pressure Mean [Left Arm] Blood Pressure Source [Left Arm] Blood Pressure Position [Left Arm] 02 Sat by Pulse Oximetry 92 L 93 L 91 L Oxygen Delivery Method Room Air Room Air Room Air 05/23/24 17:30 05/23/24 17:35 05/23/24 17:40 Temperature Temperature Source Pulse Rate 92 H 86 84 Pulse Rate [Apical] Respiratory Rate Blood Pressure 154/80 H 160/82 H 140/81 Blood Pressure [Left Arm] Blood Pressure Mean Blood Pressure Mean [Left Arm] Blood Pressure Source [Left Arm] Blood Pressure Position [Left Arm] 02 Sat by Pulse Oximetry 93 L 95 97 Oxygen Delivery Method Room Air Room Air Room Air 05/23/24 17:45 05/23/24 18:00 05/23/24 18:05 Temperature Temperature Source Pulse Rate 84 84 85 Pulse Rate [Apical] Respiratory Rate Blood Pressure 157/85 H 146/74 H 167/96 H Blood Pressure [Left Arm] Blood Pressure Mean Blood Pressure Mean [Left Arm] Blood Pressure Source [Left Arm] Blood Pressure Position [Left Arm] 02 Sat by Pulse Oximetry 96 97 94 L Oxygen Delivery Method Room Air Room Air Room Air 05/23/24 18:10 05/23/24 18:15 05/23/24 18:20 Temperature Temperature Source Pulse Rate 84 84 84 Pulse Rate [Apical] Respiratory Rate Blood Pressure 151/85 H 154/91 H 152/85 H Blood Pressure [Left Arm] Blood Pressure Mean Blood Pressure Mean [Left Arm] Blood Pressure Source [Left Arm] Blood Pressure Position [Left Arm] 02 Sat by Pulse Oximetry 96 96 96 Oxygen Delivery Method Room Air Room Air Room Air 05/23/24 18:25 Temperature Temperature Source Pulse Rate 85 Pulse Rate [Apical] Respiratory Rate Blood Pressure 144/89 H Blood Pressure [Left Arm] Blood Pressure Mean Blood Pressure Mean [Left Arm] Blood Pressure Source [Left Arm] Blood Pressure Position [Left Arm] 02 Sat by Pulse Oximetry 96 Oxygen Delivery Method Room Air Lab Data Labs: Lab Results 05/23/24 15:56: WBC 13.6 H, RBC 4.85, Hgb 14.1, Hct 43.6, MCV 89.8, MCH 29.1, MCHC 32.4, RDW 13.5, Plt Count 396, MPV 8.2, Neut % (Auto) 77.5, Lymph % (Auto) 16.6, [place] % (Auto) 4.5, Eos % (Auto) 1.1, Baso % (Auto) 0.4, Neut # (Auto) 10.5 H, Lymph # (Auto) 2.3, [place] # (Auto) 0.6, Eos # (Auto) 0.1, Baso # (Auto) 0.1, PT 10.4, INR 0.92, D-Dimer 1.62 H, Sodium 136, Potassium 4.0, Chloride 102, Carbon Dioxide 27, Anion Gap 11.0, BUN 8, Creatinine 0.80, Estimated Creat Clear 85, Estimated GFR 77, Est GFR ( Amer) 93, Glucose 110 H, Calcium 9.4, Magnesium 2.0, Total Bilirubin 0.9, AST 22, ALT 15, Alkaline Phosphatase 98, Troponin I < 0.01, Total Protein 8.2, Albumin 4.4, Globulin 3.8 H, Albumin/Globulin Ratio 1.2, Lipase 61, Serum HCG, Qual Negative 05/23/24 19:53: Troponin I < 0.01 Response Orders (Tests/Meds): ED MEDICATIONS Generic Name Dose Route Start Last Admin Trade Name Freq PRN Reason Stop Dose Admin Sodium Chloride 10 ml 05/23/24 17:53 05/23/24 17:54 Sodium Chloride 0.9% 10ml Syr (Rad Only) IV 06/22/24 17:52 10 ml NEEDED PRN Administration Maintain IV Site Discontinued Medications Generic Name Dose Route Start Last Admin Trade Name Freq PRN Reason Stop Dose Admin Acetaminophen 1,000 mg 05/23/24 16:05 05/23/24 16:28 Acetaminophen 1,000mg/100ml Vial IV 05/23/24 16:06 1,000 mg ONCE ONE Administration Albuterol/Ipratropium 3 ml 05/23/24 16:05 05/23/24 16:38 Ipratropium/Albuterol 3 Ml Neb IH 05/23/24 16:06 3 ml ONCE ONE Administration Belladonna Alkaloids 60 ml 05/23/24 16:05 05/23/24 16:28 Belladonna Alkaloids 60 Ml Ml PO 05/23/24 16:06 60 ml ONCE ONE Administration Dexamethasone Sodium Phosphate 10 mg 05/23/24 16:05 05/23/24 16:28 Dexamethasone 4mg/Ml 5ml Mdv IV 05/23/24 16:06 10 mg ONCE ONE Administration Sodium Chloride 500 mls @ 999 mls/hr 05/23/24 16:05 05/23/24 16:31 Sod Chlor 0.9% 1000ml Bag IV 05/23/24 16:35 999 mls/hr .Q31M ONE Administration Ceftriaxone Sodium 1 gm/ 50 mls @ 100 mls/hr 05/23/24 19:00 05/23/24 20:11 Sodium Chloride IV 05/23/24 19:29 100 mls/hr ONCE ONE Administration Azithromycin 500 mg/ Sodium 250 mls @ 250 mls/hr 05/23/24 19:00 05/23/24 20:10 Chloride IV 05/23/24 19:59 250 mls/hr ONCE ONE Administration Iopamidol 70 ml 05/23/24 17:53 05/23/24 17:54 Iopamidol-370 (76%);100ml Bottle IV 05/23/24 17:54 70 ml ONCE ONE Administration Ketorolac Tromethamine 15 mg 05/23/24 16:05 05/23/24 16:30 Ketorolac 30mg/Ml Vial IV 05/23/24 16:06 15 mg ONCE ONE Administration Sodium Chloride 50 ml 05/23/24 17:53 05/23/24 17:53 0.9 % Sodium Chloride 50 Ml Vial IV 05/23/24 17:54 50 ml ONCE ONE Administration ORDERS Category Date Time Status CT angio chest PE protocol Stat Cat Scan 05/23/24 16:40 Completed Chest XR 2 view (NOT portable) [XR chest 2V] Stat Exams 05/23/24 16:19 Completed POCUS Point of Care (ER Only) Stat Exams 05/23/24 19:55 Taken CBC w/Auto Diff [Complete Blood Count Auto Diff] Stat Lab 05/23/24 15:56 Completed CMP [Comprehensive Metabolic Panel] Stat Lab 05/23/24 15:56 Completed D-Dimer Stat Lab 05/23/24 15:56 Completed HCG Qualitative, Serum Stat Lab 05/23/24 15:56 Completed INR [Prothrombin Time INR] Stat Lab 05/23/24 15:56 Completed Lipase Stat Lab 05/23/24 15:56 Completed Magnesium Stat Lab 05/23/24 15:56 Completed Trop I [Troponin I] Stat Lab 05/23/24 15:56 Completed Troponin I Q3H Lab 05/23/24 19:53 Completed Troponin I Q3H Lab 05/23/24 22:15 Ordered Blood Culture Stat Micro 05/23/24 20:10 Received VBG [Venous Blood Gas] Stat RT 05/23/24 16:07 Ordered ECG Data Tracing #1: ECG Narrative: Independently interpreted by me rate is 91, rhythm is regular, axis is borderline rightward deviated, incomplete right bundle branch block, T wave inversions in the inferior leads, there is no baseline comparator, QTc 391, no ST elevation in anatomical contiguous leads. Tracing #2: ECG Narrative: Independently interpreted by me rate is 88, rhythm is regular, axis is borderline rightward deviated, incomplete right bundle branch block with T wave inversions in the inferior leads, no dynamic changes compared to previous EKG, QTc 395 MDM Narrative Medical Decision Narrative: In summary patient is a 48-year-old female who presents to the emergency department for evaluation of cough congestion and chest pain. Patient is hemodynamically stable upon arrival, afebrile. Physical exam is remarkable for nonreproducible chest pain on exam with normal breath sounds and no adventitious sounds. Differential diagnosis includes pneumonia versus ACS versus bronchitis versus PE etc. Initial workup will be conducted with hematologic labs CT PE protocol plain from chest x-ray urinalysis. Initial interventions include sepsis bolus Toradol Tylenol. Initial workup reviewed by me elevated white count and my informal interpretation of her plain film chest x-ray shows questionable pneumonia and my informal interpretation of her CT scan PE protocol does not show any obvious thrombus but does show bilateral infiltrates in the lower lobes. Radiologist called and is concerned that she has inflammation of the anterior mediastinum and around the left subclavian and axillary veins which could be concerning for thrombus however he does not explicitly see that. Upon repeat evaluation patient did report some improvement but still complaining of pain around her left shoulder blade. Given this patient will be started on anticoagulation with cardiology consult in the morning and left upper extremity ultrasound for DVT. Interactive discussion with Dr. Rincon about patient management and he has accepted for admission further evaluation and care. I was consulted by the DEB, and we discussed the complexity of the problems being addressed. I approved the treatment and management plan for this patient's care in the emergency department, thus performing a substantive portion of the medical decision making. Sherif Lee MD
[2024-05-23 16:14] LABS: Basophils # 0.1 K/mm3 (0-0.2); Basophils % 0.4 % (0.1-2.0); Eosinophils # 0.1 K/mm3 (0.0-0.4); Eosinophils % 1.1 % (0.1-12.0); Hematocrit 43.6 % (37.0-47.0); Hemoglobin 14.1 g/dL (12.2-16.2); Lymphocytes # 2.3 K/mm3 (0.7-4.5); Lymphocytes % 16.6 % (10-50); Mean Corpuscular HGB Conc 32.4 g/dL (31.8-35.4); Mean Corpuscular Hemoglobin 29.1 pg (27.0-31.2); Mean Corpuscular Volume 89.8 fl (81-99); Mean Platelet Volume 8.2 fl (7.4-10.4); Monocytes # 0.6 K/mm3 (0.1-1.0); Monocytes % 4.5 % (1.7-9.3); Neutrophils # 10.5 K/mm3 (1.8-7.8); Neutrophils % 77.5 % (37.0-80.0); Platelet Count 396 K/mm3 (142-424); Red Blood Count 4.85 M/mm3 (4.20-5.40); Red Cell Distribution Width 13.5 % (11.5-17.5); White Blood Count 13.6 K/mm3 (4.8-10.8)
--- NOTE | 2024-05-23 16:16 | ECG_ITS ---
APPROVED REPORT Exam: Resting ECG HR:91 bpm ECG Measurements Heart Rate 91 AXES FL 168 P 17 QRSd 85 QRS 92 QT 343 T 1 QTc 391 Conclusion SINUS RHYTHM BORDERLINE RIGHT AXIS DEVIATION [QRS AXIS > 90] LOW QRS VOLTAGE IN PRECORDIAL LEADS [QRS DEFLECTION < 1.0 mV IN CHEST LEADS] BORDERLINE ECG T wave inversions inferior leads Electronically signed by : JENNIFER ZEE, 05/23/2024 22:46:22
--- NOTE | 2024-05-23 16:19 | XR_ITS ---
PROCEDURE INFORMATION: Exam: XR Chest Exam date and time: 05/23/2024 4:29 PM Age: 48 years old Clinical indication: Sternal or substernal pain; Additional info: Chest pain TECHNIQUE: Imaging protocol: Radiologic exam of the chest. Views: 2 views. COMPARISON: No relevant prior studies available. FINDINGS: Lungs: Patchy airspace opacities noted in the posterior retrocardiac region of the left lower lobe suggesting potential developing pneumonia. Streaky densities in the right mid and lower lung velarde compatible with atelectasis. Calcified right mediastinal lymph nodes and some occasional calcified nodules bilaterally compatible with old granulomatous disease. Pleural spaces: Unremarkable. No pleural effusion. No pneumothorax. Heart/Mediastinum: Unremarkable. No cardiomegaly. Bones/joints: Unremarkable. IMPRESSION: Possible left lower lobe pneumonic infiltrate. Right-sided atelectasis. Advise follow-up chest x-ray in 3 to 6 weeks following treatment to ensure resolution of the left sided findings.
[2024-05-23 16:23] LABS: HCG Qualitative, Serum Negative (Negative); INR 0.92 (0.9-1.1); Prothrombin Time 10.4 seconds (10.1-12.5)
[2024-05-23 16:24] LABS: Alanine Aminotransferase 15 U/L (12-78); Albumin Level 4.4 g/dl (3.5-5.0); Albumin/Globulin Ratio 1.2 (1.1-1.8); Alkaline Phosphatase 98 U/L (38-126); Aspartate Amino Transferase 22 U/L (14-36); Bilirubin,Total 0.9 mg/dl (0.2-1.3); Blood Urea Nitrogen 8 mg/dl (7-17); Calcium 9.4 mg/dl (8.4-10.2); Carbon Dioxide 27 mmol/L (22.0-30.0); Chloride 102 mmol/L (98-107); Creatinine Clearance Estimated 85 mL/min (50-200); Estimated Glomerular Filt Rate 77 ml/min (>60); GFR (African American) 93 ML/MIN (>60); Globulin 3.8 g/dL (1.3-3.2); Glucose 110 mg/dl (74-100); Lipase 61 U/L (23-300); Sodium 136 mmol/L (136-145); Total Protein,Serum 8.2 g/dl (6.3-8.2)
[2024-05-23] MEDS: BELLADONNA ALKALOIDS 60 ML ML PO (16:28)
[2024-05-23] MEDS: ACETAMINOPHEN 1,000MG/100ML VIAL 1000 MG IV (16:28)
[2024-05-23] MEDS: DEXAMETHASONE 4MG/ML 5ML MDV 10 MG IV (16:28)
[2024-05-23 16:30] LABS: D-Dimer 1.62 ug/mL (0.0-0.5)
[2024-05-23] MEDS: KETOROLAC 30MG/ML VIAL 15 MG IV (16:30)
[2024-05-23] MEDS: 0.9 % SODIUM CHLORIDE 1000ML 500 ML 999 ML IV (16:31)
[2024-05-23 16:36] LABS: Troponin I < 0.01 ng/ml (0.00-0.034)
[2024-05-23] MEDS: IPRATROPIUM/ALBUTEROL 3 ML NEB IH (16:38)
--- NOTE | 2024-05-23 16:40 | CT_ITS ---
PROCEDURE INFORMATION: Exam: CTA Chest With Contrast Exam date and time: 05/23/2024 5:54 PM Age: 48 years old Clinical indication: Abnormal findings; Abnormal diagnostic tests; Elevated d-dimer; Additional info: Chest pain, elevated d-dimer TECHNIQUE: Imaging protocol: Computed tomographic angiography of the chest with contrast. Exam focused on the arteries. 3D rendering (Not supervised by radiologist): MIP and/or 3D reconstructed images were created by the technologist. Radiation optimization: All CT scans at this facility use at least one of these dose optimization techniques: automated exposure control; mA and/or kV adjustment per patient size (includes targeted exams where dose is matched to clinical indication); or iterative reconstruction. Contrast material: ISOVUE 370; Contrast volume: 70 ml; Contrast route: INTRAVENOUS (IV); COMPARISON: CR XR CHEST 2V 05/23/2024 4:29 PM FINDINGS: Pulmonary arteries: Normal. No pulmonary emboli. Aorta: Unremarkable. No aortic aneurysm. No aortic dissection. Veins: There is thickened appearance of the left subclavian and axillary vein with associated adjacent fat stranding in the anterior mediastinum and in the left axillary region surrounding these veins suggesting thrombosis of the left subclavian and axillary veins. Thyroid: A 17 mm left lobe thyroid nodule. Advise nonemergent ultrasound of the thyroid. Lungs: See Pleural spaces finding. Pleural spaces: Small bilateral pleural effusions [id number]-right noted. Posterior lower lobe opacities are seen [id number]. Subsegmental atelectasis noted in the inferior left upper lobe. Lung velarde otherwise clear. Heart: Unremarkable. No cardiomegaly. No pericardial effusion. Lymph nodes: Unremarkable. No enlarged lymph nodes. Bones/joints: Unremarkable. No acute fracture. Soft tissues: Unremarkable. IMPRESSION: 1. Potential thrombosis of the left subclavian and axillary vein with associated adjacent inflammatory changes in the anterior mediastinum and the left axilla. Consider further assessment with duplex venous ultrasound of the left upper extremity. 2. No evident PE. 3. Bilateral pleural effusions and associated posterior lower lobe opacities most likely atelectasis although superimposed infiltrates especially in the left lower lobe not excluded. 4. A 17 mm left lobe thyroid nodule. Advise nonemergent ultrasound of the thyroid. COMMENTS: Consistent with the [employer]'s Incidental Findings Committee white paper (J Am Hellen Radiol 2015): In patients aged 35 years and older with an incidental thyroid nodule equal to or greater than 1.[address], MRI or extrathyroidal US, further evaluation with dedicated thyroid US is recommended for patients with normal life expectancy and without comorbidities. For smaller nodules without suspicious features, no further evaluation or follow up is recommended.
[2024-05-23] MEDS: 0.9 % SODIUM CHLORIDE 50 ML VIAL IV (17:53)
[2024-05-23] MEDS: IOPAMIDOL-370 (76%);100ML BOTTLE 70 ML IV (17:54)
[2024-05-23] MEDS: SODIUM CHLORIDE 0.9% 10ML SYR (RAD ONLY) 10 ML IV (17:54)
--- NOTE | 2024-05-23 18:57 | ECG_ITS ---
APPROVED REPORT Exam: Resting ECG HR:88 bpm ECG Measurements Heart Rate 88 AXES ME 167 P 26 QRSd 87 QRS 85 QT 349 T -10 QTc 395 Conclusion SINUS RHYTHM LOW QRS VOLTAGE IN PRECORDIAL LEADS [QRS DEFLECTION < 1.0 mV IN CHEST LEADS] POSSIBLE RIGHT VENTRICULAR CONDUCTION DELAY [RSR (QR) IN V1/V2] MINIMAL ST DEPRESSION [0.025+ mV ST DEPRESSION] ABNORMAL QRS-T ANGLE [QRS-T AXIS DIFFERENCE > 60] ABNORMAL ECG T wave inversions inferior leads Electronically signed by : JENNIFER ZEE, 05/23/2024 22:45:35
[2024-05-23] MEDS: AZITHROMYCIN 500 MG in 0.9 % SODIUM CHLORIDE 250 ML 250 MG IV (20:10)
[2024-05-23] MEDS: CEFTRIAXONE SODIUM 1 GM in 0.9 % SODIUM CHLORIDE 50 ML IV (20:11)
--- NOTE | 2024-05-23 20:45 | PC.NURSE ---
House notified for admission
[2024-05-23 20:52] LABS: Troponin I < 0.01 ng/ml (0.00-0.034)
--- NOTE | 2024-05-23 21:06 | PC.NURSE ---
Report called to JS Langston
[2024-05-23 21:08] LABS: Lactate Venous 1.3 mmol/L (0.4-2.0); VBG Base Excess -5.1 mmol/L (-2.4-2.3); VBG HCO3 19.8 mmol/L (23-30); VBG Oxygen Saturation 95.2 % (50-70); VBG PCO2 32.8 mmol/L (35-51); VBG PO2 75.2 mmol/L (28-40); VBG Total CO2 20.8 mmol/L (23-27)
--- NOTE | 2024-05-23 21:27 | PC.NURSE ---
Patient arrived to floor via wheelchair from ED at 21:25.
[2024-05-23 23:12] LABS: Troponin I < 0.01 ng/ml (0.00-0.034)
[2024-05-24] VITALS (7 sets, daily range): BP systolic 139–163; BP diastolic 77–86; PULSE 64–78; RESP 16–18; TEMP 36.5–36.9; O2SAT 95–99; BMI 44.4
--- NOTE | 2024-05-24 00:56 | CA_ITS ---
FINAL REPORT TECHNIQUE: Ultrasound images of the deep venous system were obtained from the left groin to the calf veins. CLINICAL HISTORY: Chest pain, possible left subclavian and axillary thrombus per CTA, Left chest pain and shoulder tenderness FINDINGS: There is deep venous thrombosis involving the left IJ, subclavian, and axillary veins. There is superficial thrombus of the basilic vein. IMPRESSION: Deep venous thrombus and superficial thrombus as above. Reviewed, Interpreted and Dictated by Bee Moffett MD Transcribed by Nellie Mosher Authenticated and [facility]
[2024-05-24] MEDS: 0.9 % SODIUM CHLORIDE 1000ML 1,000 ML 50 ML IV (02:25)
--- NOTE | 2024-05-24 04:26 | PC.NURSE ---
Pt has rested without complaints since being admitted to floor. She has remained NPO since MN. No chest pain or SOA reported. IVF started at 50/hr
--- NOTE | 2024-05-24 07:32 | PC.NURSE ---
paged cardiology regarding ultrasound
--- NOTE | 2024-05-24 08:00 | HMH.PHAHEP ---
[facility] [place] Pharmacy Heparin Dosing Demographic Data Admission date:: 05/23/24 Date: 05/24/24 Time: 08:00 Allergies Allergy/AdvReac Type Severity Reaction Status Date / Time Penicillins [PENICILLINS] Allergy Unknown Verified 05/04/23 11:21 Height: 1.7 m Weight: 128.5 kg Indication Medication therapy:: Heparin Current Indications:: HIGH DOSE PROTOCOL - THROMBOSIS Current Active Problems (Updated 05/24/24 @ 09:01 by Nellie Sharpe APRN) Uses oral contraceptives as primary control method (Acute) DVT of left axillary vein, acute (Acute) Left subclavian vein thrombosis (Acute) Thyroid nodule (Acute) Chest pain (Acute) Bilateral pneumonia (Acute) Obesity, Class II, BMI 35-39.9 (Acute) CVA?: No Bleeding problem?: No Kidney disease?: No [place]?: No Additional History:: OBESITY, EDEMA Desired PTT range:: 50-75 seconds Labs Anticoagulation Lab Results:: 05/23/24 15:56 Hgb 14.1 Hct 43.6 Plt Count 396 Monitoring Dose Monitor 1: Date: 05/24/24 Time: 07:44 PTT Result:: BASELINE PTT: 31.5 SECONDS Infusion Rate:: RECOMMEND INITIATING HEPARIN DRIP AT 2000 UNITS/HOUR = 40 ML/HOUR AND BOLUSING 88757 UNITS HEPARIN IV ONCE. Dose Monitor 2: Date: 05/24/24 Time: 09:30 PTT Result:: 157.3 SECONDS Infusion Rate:: RECOMMEND CONTINUING HEPARIN DRIP AT 2000 UNITS/HOUR = 40 ML/HOUR. Comment:: PLAN TO START XARELTO THIS EVENING PER CARDIOLOGY ORDERS. Dose Monitor 3: Date: 05/24/24 Time: 10:45 PTT Result:: 108.3 SECONDS Infusion Rate:: RECOMMEND CONTINUING HEPARIN DRIP AT 2000 UNITS/HOUR = 40 ML/HOUR Dose Monitor 4: Date: 05/24/24 Time: 12:30 PTT Result:: 73.8 SECONDS Infusion Rate:: RECOMMEND CONTINUING HEPARIN DRIP RATE OF 2000 UNITS/HOUR = 40 ML/HOUR Comment:: HEPARIN DRIP STOPPING AT 1729 PATIENT IS GIVEN DOSE OF XARELTO AT 1730. Core Measures Is INR > or = 2 at discharge?: No Most Recent Labs:: Laboratory Results - last 24 hr 05/23/24 15:56: WBC 13.6 H, RBC 4.85, Hgb 14.1, Hct 43.6, MCV 89.8, MCH 29.1, MCHC 32.4, RDW 13.5, Plt Count 396, MPV 8.2, Neut % (Auto) 77.5, Lymph % (Auto) 16.6, Otoe % (Auto) 4.5, Eos % (Auto) 1.1, Baso % (Auto) 0.4, Neut # (Auto) 10.5 H, Lymph # (Auto) 2.3, Oto[place] # (Auto) 0.6, Eos # (Auto) 0.1, Baso # (Auto) 0.1, PT 10.4, INR 0.92, D-Dimer 1.62 H, Sodium 136, Potassium 4.0, Chloride 102, Carbon Dioxide 27, Anion Gap 11.0, BUN 8, Creatinine 0.80, Estimated Creat Clear 85, Estimated GFR 77, Est GFR ( Amer) 93, Glucose 110 H, Calcium 9.4, Magnesium 2.0, Total Bilirubin 0.9, AST 22, ALT 15, Alkaline Phosphatase 98, Troponin I < 0.01, Total Protein 8.2, Albumin 4.4, Globulin 3.8 H, Albumin/Globulin Ratio 1.2, Lipase 61, Serum HCG, Qual Negative 05/23/24 16:07: VBG pH 7.40, VBG pCO2 32.8 L, VBG pO2 75.2 H, VBG HCO3 19.8 L, VBG Total CO2 20.8 L, VBG O2 Saturation 95.2 H, VBG Base Excess -5.1 L, VBG Lactic Acid 1.3 05/23/24 19:53: Troponin I < 0.01 05/23/24 22:30: Troponin I < 0.01 Were Heparin and Warfarin started on the same day?: No
[2024-05-24] MEDS: HEPARIN SODIUM 5,000 UNIT/ML VIAL 10000 UNIT IV (08:25)
[2024-05-24] MEDS: HEPARIN 25,000 UNITS/D5W 500 ML 40 UNIT IV (08:25)
[2024-05-24 08:33] LABS: PTT Heparin (inpatient only) 31.5 Seconds (50-75)
--- NOTE | 2024-05-24 08:34 | EXP.HP ---
History of Present Illness *Admission Date: 05/23/24 *Reason for visit:: Cough and chest pain *History of present illness: Ms. Henson is a 48-year-old female she has been relatively healthy and only takes Sprintec for irregular menses who presented to [facility] emergency room after experiencing some left sided chest discomfort radiating up to the left shoulder. She states she has been sick for about a week with a cough but then the chest pain started about 4 days ago. She has no production with the cough. She denies any fever. She has some drainage. She has continued to work throughout the week. She presented to urgent treatment center at which time they did an EKG and then sent her to the emergency room for further evaluation. ER noted a elevated white blood cell count of 13,600. She did receive DuoNeb treatment and was given Tylenol and started on Rocephin and Zithromax. She received Keralac IV as well. CTA of the chest showed the following: IMPRESSION: 1. Potential thrombosis of the left subclavian and axillary vein with associated adjacent inflammatory changes in the anterior mediastinum and the left axilla. Consider further assessment with duplex venous ultrasound of the left upper extremity. 2. No evident PE. 3. Bilateral pleural effusions and associated posterior lower lobe opacities most likely atelectasis although superimposed infiltrates especially in the left lower lobe not excluded. 4. A 17 mm left lobe thyroid nodule. Advise nonemergent ultrasound of the thyroid This a.m. patient complains of being hungry. The pain in the left side has improved. She denies shortness of breath. She continues with a cough. [facility] Disclaimer: The information contained in this section may have been updated after the patient was seen, as this information can be updated by other users. Medical History (Updated 05/24/24 @ 09:01 by Nellie Sharpe APRN) Obesity, Class II, BMI 35-39.9 Surgical History No history of previous surgery Family History Other No significant family history Social History Smoking Status: Never smoker alcohol intake: never current occupational status: other Travel in the last 8 weeks: None housing: house Review of Systems Constitutional Constitutional: Denies frequent falls and Denies headache(s) Eyes Eyes: Denies change in vision ENT Ears, Nose, Mouth, and Throat: Denies otalgia, Denies headache(s), Denies nasal congestion, Reports post nasal drip and Denies sore throat *Cardiovascular Cardiovascular: Reports chest pain (Intermittent left anterior sharp chest discomfort radiating to left shoulde), Denies chest pain with activity, Denies dyspnea, Denies leg edema and Denies palpitations *Respiratory Respiratory: Denies chest congestion, Reports cough, Denies dyspnea and Denies hemoptysis *Gastrointestinal Gastrointestinal: Denies abdominal pain, Denies diarrhea, Denies heartburn, Denies nausea and Denies vomiting *Genitourinary Genitourinary: Denies difficulty voiding *Musculoskeletal Musculoskeletal: Denies abnormal gait and Reports arthralgias (Bilateral shoulders) *Neurologic Neurologic: Denies abnormal gait, Denies abnormal speech, Denies confusion, Denies frequent falls and Denies headache(s) Psychiatric Psychiatric: Denies confusion Endocrine Endocrine: Denies palpitations Meds Home Medications and Allergies Home Medications Medication Instructions Recorded Confirmed Type norgestimate 0.25 mg-ethinyl 1 tab PO DAILY 05/24/24 05/24/24 History estradiol 35 mcg tablet (Sprintec (28)) New Prescriptions to Start Prescriptions: Allergies Allergy/AdvReac Type Severity Reaction Status Date / Time Penicillins [PENICILLINS] Allergy Unknown Verified 05/04/23 11:21 Exam Data for Last 24 hours Vital signs and Labs for Last 24 Hours: Temp Pulse Resp BP Pulse Ox O2 Del Method 98.2 F 64 18 139/86 96 Room Air 05/24/24 08:00 05/24/24 08:00 05/24/24 08:00 05/24/24 08:00 05/24/24 08:00 05/24/24 08:00 Laboratory Results - last 24 hr 05/23/24 15:56: WBC 13.6 H, RBC 4.85, Hgb 14.1, Hct 43.6, MCV 89.8, MCH 29.1, MCHC 32.4, RDW 13.5, Plt Count 396, MPV 8.2, Neut % (Auto) 77.5, Lymph % (Auto) 16.6, Irwin % (Auto) 4.5, Eos % (Auto) 1.1, Baso % (Auto) 0.4, Neut # (Auto) 10.5 H, Lymph # (Auto) 2.3, Irwin # (Auto) 0.6, Eos # (Auto) 0.1, Baso # (Auto) 0.1, PT 10.4, INR 0.92, D-Dimer 1.62 H, Sodium 136, Potassium 4.0, Chloride 102, Carbon Dioxide 27, Anion Gap 11.0, BUN 8, Creatinine 0.80, Estimated Creat Clear 85, Estimated GFR 77, Est GFR ( Amer) 93, Glucose 110 H, Calcium 9.4, Magnesium 2.0, Total Bilirubin 0.9, AST 22, ALT 15, Alkaline Phosphatase 98, Troponin I < 0.01, Total Protein 8.2, Albumin 4.4, Globulin 3.8 H, Albumin/Globulin Ratio 1.2, Lipase 61, Serum HCG, Qual Negative 05/23/24 16:07: VBG pH 7.40, VBG pCO2 32.8 L, VBG pO2 75.2 H, VBG HCO3 19.8 L, VBG Total CO2 20.8 L, VBG O2 Saturation 95.2 H, VBG Base Excess -5.1 L, VBG Lactic Acid 1.3 05/23/24 19:53: Troponin I < 0.01 05/23/24 22:30: Troponin I < 0.01 05/24/24 08:00: APTT 31.5 L I & O for Last 24 hours: Intake & Output 05/21/24 05/22/24 05/23/24 05/24/24 11:59 11:59 11:59 11:59 Intake Total 194 / 194 Output Total 200 / 200 Balance -6 / -6 Weight 283 lb 4.704 oz Constitutional Constitutional: no acute distress Comments: Lying in bed and appears comfortable *Routine HEENT Exam Head: Present normocephalic and atraumatic Eye: Present PERRL; Absent conjunctival icterus, scleral injection or conjunctivae pink ENT: Present mucous membranes moist and oropharynx clear *Routine Neck Exam Neck: Present supple; Absent carotid bruit, lymphadenopathy or thyromegaly Routine Chest/Breast/Axilla Exam Chest wall: Absent tenderness *Routine Respiratory Exam Respiratory: Present crackles (Bibasilar) *Routine Cardiovascular Exam Cardiovascular: Present RRR *Routine Abdominal Exam Abdominal: Present soft, normoactive bowel sounds and obese; Absent tenderness *Routine Rectal Exam Rectal:: deferred *Routine Genitalia Exam Genitalia:: deferred *Routine Extremities Exam Extremities: Present full ROM and pulses intact; Absent edema or calf tenderness *Routine Neurological Exam Neurological: Present alert, oriented X3 and moving all extremities Assessment and Plan *Assessment and plan (1) Left subclavian vein thrombosis: Status: Acute Category: Medical Code(s): I82.B12 - Acute embolism and thrombosis of left subclavian vein (2) DVT of left axillary vein, acute: Status: Acute Category: Medical Code(s): I82.A12 - Acute embolism and thrombosis of left axillary vein (3) Bilateral pneumonia: Status: Acute Qualifiers: Lung location: lower lobe of lung Pneumonia type: due to unspecified organism Qualified Code(s): J18.9 - Pneumonia, unspecified organism Category: Medical Code(s): J18.9 - Pneumonia, unspecified organism (4) Chest pain: Status: Acute Qualifiers: Chest pain type: unspecified Qualified Code(s): R07.9 - Chest pain, unspecified Category: Medical Code(s): R07.9 - Chest pain, unspecified (5) Obesity, Class II, BMI 35-39.9: Status: Acute Category: Medical Code(s): E66.9 - Obesity, unspecified (6) Thyroid nodule: Status: Acute Category: Medical Code(s): E04.1 - Nontoxic single thyroid nodule (7) Uses oral contraceptives as primary control method: Status: Acute Category: Social Hx Code(s): Z78.9 - Other specified health status Plan Continue with that IV antibiotics for now. Will add DuoNebs 3 times daily. Cardiology to see patient as well. Will be started on a heparin drip Patient was also seen by Dr. Rincon this a.m.
--- NOTE | 2024-05-24 08:39 | PC.NURSE ---
cardiology and primary have both been in to see pt. okayed to resume regular diet. jayshree celeste currently infusing
--- NOTE | 2024-05-24 08:43 | CA_ITS ---
APPROVED REPORT EXAM: Comprehensive 2D, Doppler, and color-flow Echocardiogram [employer]: Ifrah Welch, ANIYAH, RVS Ht: 5 ft 6 in Wt: 283lbs BSA: 2.32 BP: 139/86 mmHg Indications: Pneumonia, DVT of Left IJV, SOA, CP Echo Enhancing Agent Comments: Technically limited exam due to extreme body habitus. 2D Dimensions LVDs 3.02 cm LA Volume 74.20 mL Left Atrium 2.96 cm LA Volume Index 31.30 mL/m2 (M/F) 16-34 EF AP4 48.40 % GL Strain -11.9 % M-Mode Dimensions RVDd 2.78 cm (0.9-2.6) LA Diam 4.12 cm (1.9-4.0) LVDd 5.27 cm (3.5-5.7) LVDs 3.06 cm (3.5-5.7) IVSd 1.37 cm (0.6-1.1) PWd 1.05 cm (0.6-1.1) EF (Teich) 72.50% EPSs 0.69 cm FS 41.90% EDV (Teich) 133.60 mL TAPSE 2.30 (<1.7) ESV (Teich) 36.70 mL LV Diastology E Decel Time 277 (160-240 msec) E/A Ratio 0.77 MED A' 10.60 cm/s LAT A' 12.40 cm/s Aortic Valve TARIQ Index 1.21 cm2/m2 AoV Peak Jay. 124.0 (50-130 cm/s) AO Peak GR. 6.20 mmHg AO Mean GR. 3.10 (<5 mmHg) AO VTI 23.3 (18-25 cm) TARIQ (VTI) 2.86 (2.5-4.5 cm2) Mitral Valve MV A Velocity 81.0 (40-130 cm/s) E/A Ratio 0.77 Pulmonary Valve PV Peak Velocity 102.0 (50-150 cm/s) AR End VMAX 124.0 cm/s Left Ventricle The left ventricle is normal size. The left ventricular systolic function is normal. The left ventricular ejection fraction is within the normal range. Proximal septal thickening is noted. There is normal LV segmental wall motion. Transmitral Doppler flow pattern suggests impaired LV relaxation. LVEF is 60%. Right Ventricle Right ventricle is mildly dilated. The right ventricular systolic function is normal. Atria The left atrium size is normal. The right atrium size is normal. There is no Doppler evidence of interatrial shunt. Aortic Valve The aortic valve opens well. There is no aortic valvular stenosis. Trace aortic regurgitation. Mitral Valve The mitral valve is normal in structure. No evidence of mitral valve stenosis. Mild mitral regurgitation. Tricuspid Valve The tricuspid valve leaflets are thin and pliable. Trace tricuspid regurgitation. There is insufficient TR jet to estimate RVSP. Pulmonic Valve The pulmonary valve is normal in structure. Mild pulmonic regurgitation. Great Vessels The aortic root is normal in size. The ascending aorta is not well-visualized. IVC is normal in size and collapses >50% with inspiration. Pericardium There is no pericardial effusion. Other Information Study Quality: Fair Conclusion Normal biventricular systolic function. Mild RV dilation. Mild MR, mild PI. Electronically signed by : Marina Shabazz MD 05/25/2024 03:15:14
[2024-05-24 09:27] LABS: C-Reactive Protein 163.9 mg/L (0-4)
--- NOTE | 2024-05-24 09:55 | HMH.PHAINT1 ---
Pharmacy Intervention Comments: MEDICATION RECONCILIATION COMPLETED ON PATIENT USING EXTERNAL FILL HISTORY FROM PHARMACY. -REBECCA MOYA, JOHNNIED
[2024-05-24 10:13] LABS: Prothrombin Time 11.2 seconds (10.1-12.5)
--- NOTE | 2024-05-24 10:15 | EXP.CARD.CON ---
History of Present Illness History of Present Illness Consult date: 05/24/24 Requesting physician: Monika Rincon Consult reason: chest pain and shortness of breath Chief complaint: Axillary Vein thrombosis Additional Medical History:: 1. Left-sided axillary vein thrombosis, 05/2024 A. Noted on CTA of the chest and confirmed with venous Doppler, 05/24/2024 2. Bilateral pneumonia, 05/23/2024 3. Obesity 4. Use of control pills History of present illness: Ms. Henson is a 48-year-old female she has been relatively healthy and only takes Sprintec for irregular menses who presented to [facility] emergency room after experiencing some left sided chest discomfort radiating up to the left shoulder. She states she has been sick for about a week with a cough but then the chest pain started about 4 days ago. She has no production with the cough. She denies any fever. She has some drainage. She has continued to work throughout the week. She presented to urgent treatment center at which time they did an EKG and then sent her to the emergency room for further evaluation. ER noted a elevated white blood cell count of 13,600. She did receive DuoNeb treatment and was given Tylenol and started on Rocephin and Zithromax. She received Keralac IV as well. CTA of the chest showed the following: IMPRESSION: 1. Potential thrombosis of the left subclavian and axillary vein with associated adjacent inflammatory changes in the anterior mediastinum and the left axilla. Consider further assessment with duplex venous ultrasound of the left upper extremity. 2. No evident PE. 3. Bilateral pleural effusions and associated posterior lower lobe opacities most likely atelectasis although superimposed infiltrates especially in the left lower lobe not excluded. 4. A 17 mm left lobe thyroid nodule. Advise nonemergent ultrasound of the thyroid This a.m. patient complains of being hungry. The pain in the left side has improved. She denies shortness of breath. She continues with a cough. The above per Nellie Sharpe APRN for Dr. Rincon. Events as noted above confirmed with the patient. She does complain of some left-sided discomfort. There is no left upper extremity swelling noted on exam today. Non-smoker. No history of cancer. No family history of genetic blood disorders. [facility] Disclaimer: The information contained in this section may have been updated after the patient was seen, as this information can be updated by other users. Medical History (Updated 05/24/24 @ 09:01 by Nellie Sharpe APRN) Obesity, Class II, BMI 35-39.9 Surgical History No history of previous surgery Family History Other No significant family history Social History Smoking Status: Never smoker alcohol intake: never current occupational status: other Travel in the last 8 weeks: None housing: house Review of Systems Constitutional Constitutional: Denies frequent falls and Denies headache(s) ENT Ears, Nose, Mouth, and Throat: Denies headache(s) *Cardiovascular Cardiovascular: Denies chest pain *Respiratory Respiratory: Reports cough *Musculoskeletal Musculoskeletal: Denies abnormal gait *Neurologic Neurologic: Denies abnormal gait, Denies abnormal speech, Denies confusion, Denies frequent falls and Denies headache(s) Psychiatric Psychiatric: Denies confusion Exam Data for Last 24 hours Vital signs and Labs for Last 24 Hours: Temp Pulse Resp BP Pulse Ox O2 Del Method 98.2 F 64 18 139/86 98 Room Air 05/24/24 08:00 05/24/24 08:00 05/24/24 08:00 05/24/24 08:00 05/24/24 08:00 05/24/24 08:00 Laboratory Results - last 24 hr 05/23/24 15:56: WBC 13.6 H, RBC 4.85, Hgb 14.1, Hct 43.6, MCV 89.8, MCH 29.1, MCHC 32.4, RDW 13.5, Plt Count 396, MPV 8.2, Neut % (Auto) 77.5, Lymph % (Auto) 16.6, [place] % (Auto) 4.5, Eos % (Auto) 1.1, Baso % (Auto) 0.4, Neut # (Auto) 10.5 H, Lymph # (Auto) 2.3, [place] # (Auto) 0.6, Eos # (Auto) 0.1, Baso # (Auto) 0.1, PT 10.4, INR 0.92, D-Dimer 1.62 H, Sodium 136, Potassium 4.0, Chloride 102, Carbon Dioxide 27, Anion Gap 11.0, BUN 8, Creatinine 0.80, Estimated Creat Clear 85, Estimated GFR 77, Est GFR ( Amer) 93, Glucose 110 H, Calcium 9.4, Magnesium 2.0, Total Bilirubin 0.9, AST 22, ALT 15, Alkaline Phosphatase 98, Troponin I < 0.01, Total Protein 8.2, Albumin 4.4, Globulin 3.8 H, Albumin/Globulin Ratio 1.2, Lipase 61, Serum HCG, Qual Negative 05/23/24 16:07: VBG pH 7.40, VBG pCO2 32.8 L, VBG pO2 75.2 H, VBG HCO3 19.8 L, VBG Total CO2 20.8 L, VBG O2 Saturation 95.2 H, VBG Base Excess -5.1 L, VBG Lactic Acid 1.3 05/23/24 19:53: Troponin I < 0.01 05/23/24 22:30: Troponin I < 0.01 05/24/24 08:00: APTT 31.5 L, C-Reactive Protein 163.9 H I & O for Last 24 hours: Intake & Output 05/21/24 05/22/24 05/23/24 05/24/24 11:59 11:59 11:59 11:59 Intake Total 194 / 194 Output Total 200 / 200 Balance -6 / -6 Weight 283 lb 4.704 oz Constitutional Constitutional: no acute distress *Routine Respiratory Exam Respiratory: Present CTA bilaterally; Absent wheezes or crackles *Routine Cardiovascular Exam Cardiovascular: Present RRR; Absent murmur, gallop or rubs *Routine Extremities Exam Extremities: Absent edema *Routine Neurological Exam Neurological: Present alert, oriented X3 and CN II-XII intact Meds Home Medications and Allergies Home Medications Medication Instructions Recorded Confirmed Type norgestimate 0.25 mg-ethinyl 1 tab PO DAILY 05/24/24 05/24/24 History estradiol 35 mcg tablet (Sprintec (28)) New Prescriptions to Start Prescriptions: Allergies Allergy/AdvReac Type Severity Reaction Status Date / Time Penicillins [PENICILLINS] Allergy Unknown Verified 05/04/23 11:21 Assessment and Plan *Assessment and plan (1) DVT of left axillary vein, acute: Status: Acute Category: Medical Code(s): I82.A12 - Acute embolism and thrombosis of left axillary vein (2) Uses oral contraceptives as primary control method: Status: Acute Category: Social Hx Code(s): Z78.9 - Other specified health status (3) Chest pain: Status: Acute Qualifiers: Chest pain type: unspecified Qualified Code(s): R07.9 - Chest pain, unspecified Category: Medical Code(s): R07.9 - Chest pain, unspecified (4) Bilateral pneumonia: Status: Acute Qualifiers: Lung location: lower lobe of lung Pneumonia type: due to unspecified organism Qualified Code(s): J18.9 - Pneumonia, unspecified organism Category: Medical Code(s): J18.9 - Pneumonia, unspecified organism (5) Obesity, Class II, BMI 35-39.9: Status: Acute Category: Medical Code(s): E66.9 - Obesity, unspecified Plan 1. DVT of left axillary vein, acute -Heparin started and will switch to Xarelto 15 mg twice daily for 21 days then 20 mg daily thereafter -Labs including factor V Leiden and anticardiolipin ordered per Dr. Rincon 2. Chest pain, likely due to acute DVT -Normal troponin -Check echo 3. Bilateral pneumonia -Continue antibiotics 4. History of control pills use -Discontinued check echo start heparin/Xarelto Anticipate home in the next 24 hrs.
[2024-05-24 10:36] LABS: PTT Heparin (inpatient only) 157.3 Seconds (50-75)
--- NOTE | 2024-05-24 10:38 | PC.NURSE ---
spoke with pharmacy. keeping heparin dosage the same
--- NOTE | 2024-05-24 12:13 | PC.NURSE ---
pt is sitting up in bed eating lunch. I spoke with lab regarding PTT. they state its still running and will notify me with the result.
[2024-05-24 12:28] LABS: PTT Heparin (inpatient only) 108.3 Seconds (50-75)
--- NOTE | 2024-05-24 12:38 | PC.NURSE ---
spoke with pharmacy. no changes to heparin
[2024-05-24] MEDS: SODIUM CHLORIDE 3% 15ML NEB 3 ML IH (13:03)
[2024-05-24] MEDS: IPRATROPIUM/ALBUTEROL 3 ML NEB IH ×2 (13:03→19:50)
[2024-05-24 13:40] LABS: PTT Heparin (inpatient only) 73.8 Seconds (50-75)
[2024-05-24] MEDS: RIVAROXABAN 15MG TABLET 15 MG PO (17:37)
[2024-05-24] MEDS: AZITHROMYCIN 500 MG in 0.9 % SODIUM CHLORIDE 250 ML 250 MG IV (20:26)
[2024-05-24] MEDS: CEFTRIAXONE 1 GM 1 GM in 0.9 % SODIUM CHLORIDE 50 ML IV (21:50)
[2024-05-25 04:00] VITALS: BP 140/78; PULSE 68; RESP 15; TEMP 36.9; O2SAT 93; BMI 44.4
--- NOTE | 2024-05-25 05:27 | PC.NURSE ---
Pt rested well through the night. She has denied any discomfort and VS have been stable
[2024-05-25] MEDS: IPRATROPIUM/ALBUTEROL 3 ML NEB IH ×2 (06:17→11:57)
[2024-05-25 06:18] VITALS: PULSE 65; PULSE 68
[2024-05-25 08:00] VITALS: BP 143/77; PULSE 74; RESP 16; TEMP 36.6; O2SAT 94
--- NOTE | 2024-05-25 08:21 | EXP.ACUTE.PN ---
Subjective *Date: 05/25/24 *Time: 08:21 Interval history: Patient is feeling better this am. Having some left sided back pain and some mild pain in the left lower leg. Doing nebs and coughing but cough is not productive. Has not needed any oxygen. Medical Exam Vital signs and Labs for Last 24 Hours: Vital Signs Temp Pulse Pulse Resp BP Pulse Ox O2 Del Method 05/25/24 06:40 Room Air 05/25/24 06:18 65 05/25/24 06:18 68 05/25/24 05:00 Room Air 05/25/24 04:00 98.4 F 68 15 140/78 93 L Room Air 05/25/24 02:56 Room Air 05/25/24 01:00 Room Air 05/24/24 23:00 Room Air 05/24/24 21:00 Room Air 05/24/24 20:04 77 05/24/24 20:04 73 05/24/24 20:00 99 Room Air 05/24/24 20:00 98.3 F 78 16 143/82 H 99 Room Air 05/24/24 17:00 Room Air 05/24/24 16:00 98.5 F 72 18 163/77 H 95 Room Air 05/24/24 15:00 Room Air 05/24/24 13:18 75 05/24/24 13:02 77 16 05/24/24 13:02 77 05/24/24 13:00 Room Air 05/24/24 11:00 Room Air 05/24/24 09:00 Room Air Intake and Output 05/24/24 05/25/24 05/25/24 19:59 03:59 11:59 Intake Total 900 / 1200 300 / 1200 Output Total 500 / 750 250 / 750 0 / 750 Balance 400 / 450 50 / 450 0 / 450 Intake: Intake, Oral Amount 900 / 900 Intake, Total IV Amount 300 / 300 Azithromycin 500 mg In 0.9 % 250 / 250 Sodium Chloride 250 ml @ 250 mls/hr IV Q24H KARLA Rx#:[id number] Ceftriaxone 1 gm 1 gm In 0.9 % 50 / 50 Sodium Chloride 50 ml @ 100 mls /hr IV Q24H KARLA Rx#:[id number] Output: Output, Urine Amount 500 / 750 250 / 750 0 / 750 Other: Number of Unmeasured Voids 1 1 Weight 283 lb 4.704 oz Patient Weight 05/25/24 11:59 Weight 283 lb 4.704 oz Laboratory Results - last 24 hr 05/24/24 08:00: APTT 31.5 L, C-Reactive Protein 163.9 H 05/24/24 09:47: PT 11.2, INR 1.00, APTT 157.3 H* 05/24/24 10:54: APTT 108.3 H* 05/24/24 12:40: APTT 73.8 I & O for Labs for Last 24 Hours: Intake & Output 05/22/24 05/23/24 05/24/24 05/25/24 11:59 11:59 11:59 11:59 Intake Total 194 / 194 1200 / 1200 Output Total 200 / 200 750 / 750 Balance -6 / -6 450 / 450 Weight 283 lb 4.704 oz 283 lb 4.704 oz Microbiology Reports for the Last 24 Hours: Microbiology 05/23/24 20:10 Blood Blood Culture - Preliminary NO GROWTH AFTER 24 HOURS 05/23/24 20:10 Blood Blood Culture - Preliminary NO GROWTH AFTER 24 HOURS Constitutional: Present no acute distress Respiratory: Present rales (left base) Cardiac: Present Reg Rate and Rhythm GI: Present soft; Absent tenderness or guarding Extremities: Present tenderness (LLE) Skin: Present intact Neuro: Present alert and awake Assessment and Plan *Assessment and plan (1) Left subclavian vein thrombosis: Status: Acute Category: Medical Code(s): I82.B12 - Acute embolism and thrombosis of left subclavian vein (2) DVT of left axillary vein, acute: Status: Acute Category: Medical Code(s): I82.A12 - Acute embolism and thrombosis of left axillary vein (3) Bilateral pneumonia: Status: Acute Qualifiers: Lung location: lower lobe of lung Pneumonia type: due to unspecified organism Qualified Code(s): J18.9 - Pneumonia, unspecified organism Category: Medical Code(s): J18.9 - Pneumonia, unspecified organism (4) Chest pain: Status: Acute Qualifiers: Chest pain type: unspecified Qualified Code(s): R07.9 - Chest pain, unspecified Category: Medical Code(s): R07.9 - Chest pain, unspecified (5) Obesity, Class II, BMI 35-39.9: Status: Acute Category: Medical Code(s): E66.9 - Obesity, unspecified (6) Thyroid nodule: Status: Acute Category: Medical Code(s): E04.1 - Nontoxic single thyroid nodule (7) Uses oral contraceptives as primary control method: Status: Acute Category: Social Hx Code(s): Z78.9 - Other specified health status Plan Patient has been converted to xarelto. Doing well with nebs. Has not needed oxygen. Echo showed normal biventricular systolic function, mild RV dilation, mild MR, mild PI. May be able to discharge home today on xarelto and abx for pneumonia. Will discuss with Dr. Rincon.
--- NOTE | 2024-05-25 08:58 | P.PN_ITS ---
Subjective Subjective Date: 05/25/24 Time: 08:58 Principal diagnosis: Axillary vein thrombosis Interval history: 48-year-old white female in bed in no acute distress. No complaints of chest pain, pressure, tightness or shortness of breath ov ernight. Tolerating the blood thinners without complications. Echocardiogram showed normal ejection fraction with no significant valve disease. Exam Data for Last 24 hours Vital signs and Labs for Last 24 Hours: Temp Pulse Resp BP Pulse Ox O2 Del Method 97.9 F 74 16 143/77 H 94 L Room Air 05/25/24 08:00 05/25/24 08:00 05/25/24 08:00 05/25/24 08:00 05/25/24 08:00 05/25/24 06:40 Laboratory Results - last 24 hr 05/24/24 08:00: C-Reactive Protein 163.9 H 05/24/24 09:47: PT 11.2, INR 1.00, APTT 157.3 H* 05/24/24 10:54: APTT 108.3 H* 05/24/24 12:40: APTT 73.8 I & O for Last 24 hours: Intake & Output 05/22/24 05/23/24 05/24/24 05/25/24 11:59 11:59 11:59 11:59 Intake Total 194 / 194 1200 / 1200 Output Total 200 / 200 750 / 750 Balance -6 / -6 450 / 450 Weight 283 lb 4.704 oz 283 lb 4.704 oz Microbiology Reports for the Last 24 Hours: Microbiology 05/23/24 20:10 Blood Blood Culture - Preliminary NO GROWTH AFTER 24 HOURS 05/23/24 20:10 Blood Blood Culture - Preliminary NO GROWTH AFTER 24 HOURS Constitutional Constitutional: no acute distress *Routine Respiratory Exam Respiratory: Present CTA bilaterally *Routine Cardiovascular Exam Cardiovascular: Present RRR *Routine Extremities Exam Extremities: Absent edema *Routine Neurological Exam Neurological: Present alert and oriented X3 Progress Note: A&P Assessment and plan (1) Left subclavian vein thrombosis: Status: Acute (2) DVT of left axillary vein, acute: Status: Acute (3) Bilateral pneumonia: Status: Acute (4) Chest pain: Status: Acute (5) Obesity, Class II, BMI 35-39.9: Status: Acute (6) Thyroid nodule: Status: Acute (7) Uses oral contraceptives as primary control method: Status: Acute Assessment and Plan Assessment and Plan for All Diagnoses:: 1. DVT of left axillary vein, acute - Xarelto 15 mg twice daily for 21 days then 20 mg daily thereafter -Labs including factor V Leiden and anticardiolipin ordered per Dr. Rincon 2. Chest pain, likely due to acute DVT -Normal troponin -Echo normal biventricular systolic function with no significant valve disease. Mild RV dilatation. 3. Bilateral pneumonia -Continue antibiotics 4. History of control pills use -Discontinued Clinically stable from a cardiac standpoint for discharge home. Home medications: Discontinue control pill Xarelto 15 mg twice daily for 21 days (started on 05/24/2024) then go to 20 mg once daily Follow-up in our office in 1 to 2 weeks
[2024-05-25] MEDS: RIVAROXABAN 15MG TABLET 15 MG PO (09:27)
[2024-05-25 10:15] LABS: Basophils # 0.1 K/mm3 (0-0.2); Basophils % 0.8 % (0.1-2.0); Eosinophils # 0.1 K/mm3 (0.0-0.4); Eosinophils % 1.1 % (0.1-12.0); Hematocrit 35.9 % (37.0-47.0); Hemoglobin 11.8 g/dL (12.2-16.2); Lymphocytes # 2.4 K/mm3 (0.7-4.5); Lymphocytes % 23.3 % (10-50); Mean Corpuscular HGB Conc 32.8 g/dL (31.8-35.4); Mean Corpuscular Hemoglobin 29.1 pg (27.0-31.2); Mean Corpuscular Volume 88.7 fl (81-99); Mean Platelet Volume 8.2 fl (7.4-10.4); Monocytes # 0.6 K/mm3 (0.1-1.0); Monocytes % 6.2 % (1.7-9.3); Neutrophils # 7.1 K/mm3 (1.8-7.8); Neutrophils % 68.6 % (37.0-80.0); Platelet Count 375 K/mm3 (142-424); Red Blood Count 4.04 M/mm3 (4.20-5.40); Red Cell Distribution Width 13.7 % (11.5-17.5); White Blood Count 10.4 K/mm3 (4.8-10.8)
[2024-05-25 10:33] LABS: Anion Gap 8.6 mEq/L (5-15); Blood Urea Nitrogen 13 mg/dl (7-17); Calcium 8.7 mg/dl (8.4-10.2); Carbon Dioxide 27 mmol/L (22.0-30.0); Chloride 107 mmol/L (98-107); Creatinine Clearance Estimated 72 mL/min (50-200); Estimated Glomerular Filt Rate 67 ml/min (>60); GFR (African American) 81 ML/MIN (>60); Glucose 105 mg/dl (74-100); Potassium 3.6 mmoL/L (3.5-5.1); Sodium 139 mmol/L (136-145)
[2024-05-25 16:56] LABS: Anti-Cardio Antibody IgM <9 MPL U/mL (0-12); Anti-Cardiolipin Antibody IgG <9 GPL U/mL (0-14); Anticardiolipin Ab,IgA,Qn <9 APL U/mL (0-11)
--- NOTE | 2024-05-26 14:31 | CARE MANAGER ---
Contacted patient related to hospital discharge. She states she is doing well. She is just tired. She has her new medications and stopped her control. She is aware of follow up appointments with cards and with PCP. Denies questions or concerns. JS Hinton
--- NOTE | 2024-05-26 16:39 | P.DS_ITS ---
General Admission date:: 05/23/24 Discharge date: 05/25/24 HPI HPI HPI: Ms. Henson is a 48-year-old female she has been relatively healthy and only takes Sprintec for irregular menses who presented to [facility] emergency room after experiencing some left sided chest discomfort radiating up to the left shoulder. She states she has been sick for about a week with a cough but then the chest pain started about 4 days ago. She has no production with the cough. She denies any fever. She has some drainage. She has continued to work throughout the week. She presented to urgent treatment center at which time they did an EKG and then sent her to the emergency room for further evaluation. ER noted a elevated white blood cell count of 13,600. She did receive DuoNeb treatment and was given Tylenol and started on Rocephin and Zithromax. She received Keralac IV as well. CTA of the chest showed the following: IMPRESSION: 1. Potential thrombosis of the left subclavian and axillary vein with associated adjacent inflammatory changes in the anterior mediastinum and the left axilla. Consider further assessment with duplex venous ultrasound of the left upper extremity. 2. No evident PE. 3. Bilateral pleural effusions and associated posterior lower lobe opacities most likely atelectasis although superimposed infiltrates especially in the left lower lobe not excluded. 4. A 17 mm left lobe thyroid nodule. Advise nonemergent ultrasound of the thyroid This a.m. patient complains of being hungry. The pain in the left side has improved. She denies shortness of breath. She continues with a cough. Hospital Course Hospital Course Hospital Course: The patient was started on a heparin drip and IV antibiotics. DuoNebs were added 3 times a day. She was seen in consultation by cardiology. She was switched from heparin to Xarelto 15 mg twice a day for 21 days and then will remain on 20 mg daily thereafter. Cardiology did order an echo. By 05/25/2024, she was feeling better. She did have some left-sided back pain and mild pain in the left lower leg. She had not required any oxygen during admission. Her echo showed normal biventricular systolic function, mild right ventricular dilatation, mild mitral regurgitation, and mild pulmonic insufficiency. It was felt she could be discharged home on Xarelto as well as cefdinir for the pneumonia and she will follow-up with Dr. Babb. Cardiology recommended she discontinue her control. Exam Data for Last 24 hours Vital signs and Labs for Last 24 Hours: Temp Pulse Resp BP Pulse Ox O2 Del Method 97.9 F 74 16 143/77 H 94 L Room Air 05/25/24 08:00 05/25/24 08:00 05/25/24 08:00 05/25/24 08:00 05/25/24 08:00 05/25/24 11:00 Laboratory Results - last 24 hr 05/24/24 09:47: Anti-Cardiolipin IgG Ab <9, Anti-Cardiolipin IgA Ab <9, Anti- Cardiolipin IgM Ab <9 I & O for Last 24 hours: Intake & Output 05/24/24 05/25/24 05/26/24 05/27/24 11:59 11:59 11:59 11:59 Intake Total 194 / 194 1440 / 1440 Output Total 200 / 200 750 / 750 Balance -6 / -6 690 / 690 Weight 283 lb 4.704 oz 283 lb 4.704 oz Microbiology Reports for the Last 24 Hours: Microbiology 05/23/24 20:10 Blood Blood Culture - Preliminary NO GROWTH AFTER 48 HOURS 05/23/24 20:10 Blood Blood Culture - Preliminary NO GROWTH AFTER 48 HOURS Narrative: Constitutional Constitutional: no acute distress Comments: Lying in bed and appears comfortable *Routine HEENT Exam Head: Present normocephalic and atraumatic Eye: Present PERRL; Absent conjunctival icterus, scleral injection or conjunctivae pink ENT: Present mucous membranes moist and oropharynx clear *Routine Neck Exam Neck: Present supple; Absent carotid bruit, lymphadenopathy or thyromegaly Routine Chest/Breast/Axilla Exam Chest wall: Absent tenderness *Routine Respiratory Exam Respiratory: Present crackles (Bibasilar) *Routine Cardiovascular Exam Cardiovascular: Present RRR *Routine Abdominal Exam Abdominal: Present soft, normoactive bowel sounds and obese; Absent tenderness *Routine Rectal Exam Rectal:: deferred *Routine Genitalia Exam Genitalia:: deferred *Routine Extremities Exam Extremities: Present full ROM and pulses intact; Absent edema or calf tenderness *Routine Neurological Exam Neurological: Present alert, oriented X3 and moving all extremities Results Data Completed and Pending Labs on day of discharge: Labs from last 24 hours 05/24/24 09:47 Anti-Cardiolipin IgG Ab <9 Anti-Cardiolipin IgA Ab <9 Anti-Cardiolipin IgM Ab <9 Preliminary micro results at discharge 05/23/24 20:10 Blood Culture - Preliminary Blood NO GROWTH AFTER 48 HOURS 05/23/24 20:10 Blood Culture - Preliminary Blood NO GROWTH AFTER 48 HOURS DS: Diagnosis Discharge Diagnosis (1) Left subclavian vein thrombosis: Status: Acute Code(s): I82.B12 - Acute embolism and thrombosis of left subclavian vein (2) DVT of left axillary vein, acute: Status: Acute Code(s): I82.A12 - Acute embolism and thrombosis of left axillary vein (3) Bilateral pneumonia: Status: Acute Code(s): J18.9 - Pneumonia, unspecified organism Qualifiers: Lung location: lower lobe of lung Pneumonia type: due to unspecified organism Qualified Code(s): J18.9 - Pneumonia, unspecified organism (4) Chest pain: Status: Acute Code(s): R07.9 - Chest pain, unspecified Qualifiers: Chest pain type: unspecified Qualified Code(s): R07.9 - Chest pain, unspecified (5) Obesity, Class II, BMI 35-39.9: Status: Acute Code(s): E66.9 - Obesity, unspecified (6) Thyroid nodule: Status: Acute Code(s): E04.1 - Nontoxic single thyroid nodule (7) Uses oral contraceptives as primary control method: Status: Acute Code(s): Z78.9 - Other specified health status Meds Home Medications and Allergies Home Medications Medication Instructions Recorded Confirmed Type cefdinir 300 mg capsule 300 mg PO BID pneumonia #14 caps 05/25/24 Rx rivaroxaban 15 mg tablet (Xarelto) 15 mg PO BIDWMEAL DVT #42 tabs 05/25/24 Rx New Prescriptions to Start Prescriptions: cefdinir Monika Rincon rivaroxaban [Xarelto] Monika Rincon Allergies Allergy/AdvReac Type Severity Reaction Status Date / Time Penicillins [PENICILLINS] Allergy Unknown Verified 05/04/23 11:21 Discharge Plan Disposition Patient Disposition: Home, Self-Care Condition: Good Follow up Plan Follow up with: Harlan Babb MD [Primary Care Provider] - 05/31/24 9:30 Sharif Dang MD [Staff Physician] - Enter time for follow up (patient will call to make appointment ) Prescriptions/Medication Reconciliation: New Xarelto 15 mg Tablet 15 mg PO BIDWMEAL Qty: 42 0RF cefdinir 300 mg capsule 300 mg PO BID Qty: 14 0RF Discontinued norgestimate-ethinyl estradiol [Sprintec (28)] 0.25-35 mg-mcg tablet 1 tab PO DAILY Problem Reconciliation Problems Reviewed?: Yes Patient Discharge Instructions ACTIVITY: Limited activity DIET: advance to your usual diet Stand Alone Forms: [facility] Work Release Patient Instructions: DI for Deep Vein Thrombosis, DI for Pneumonia -- Adult, D I for Chest Pain Providers Primary Care Provider: Harlan Babb Admit Provider: oMnika Rincon Attending Provider: Monika Rincon
== END 2024-05-25 13:29 | disposition home or self-care (01) ==
LOC: ER 20:35 → 2ND 05-24 05:11
PROVIDERS: Physician Assistant; Admitting Provider Family Medicine; Emergency Provider Emergency Medicine; PCP Family Medicine; Visit Provider Family Medicine
DX: J18.9 Pneumonia, unspecified organism (principal); I82.B12 Acute embolism and thrombosis of left subclavian vein; I82.A12 Acute embolism and thrombosis of left axillary vein; E04.1 Nontoxic single thyroid nodule; Z68.41 Body mass index [BMI] 40.0-44.9, adult; E66.9 Obesity, unspecified; Z79.3 Long term (current) use of hormonal contraceptives
CPT/HCPCS: 36415; 71046; 71275; 80048; 80053; 81241; 82803; 83690; 83735; 84484; 84703; 85025; 85378; 85610; 85730; 86140; 86147; 87040; 93005; 93306; 93971; 94640; 99285; G0378; J0131; J0456; J0696; J1644; J1885; J7030; J7620; Q9967

== ENCOUNTER 2024-06-15 13:14 | Outpatient (CLI) | payer BC, SELFPAY ==
--- NOTE | 2024-06-15 13:20 | MM_ITS ---
PROCEDURE INFORMATION: Exam: MG Bilateral Screening 3D Mammography Exam date and time: 06/15/2024 1:12 PM Age: 48 years old Clinical indication: Screening mammogram TECHNIQUE: Imaging protocol: Bilateral Screening tomosynthesis and 2D mammography including computer-aided detection (CAD) when performed. COMPARISON: MG SCBI MM Dig screening mamm BI w/CAD 03/30/2018 10:05 AM FINDINGS: MAMMOGRAPHY: Breast composition: The breast is heterogeneously dense, which may obscure small masses. Mass: None. Architectural distortion: No new or suspicious architectural distortion. Calcifications: No new or suspicious calcifications are present Asymmetric density: No new or suspicious asymmetric density is present Skin thickening: None. Axillary adenopathy: None. IMPRESSION: No mammographic evidence of malignancy. Recommend annual screening mammography unless otherwise clinically indicated. ASSESSMENT: BI-RADS category 1: Negative.
== END 2024-06-15 23:59 | disposition home or self-care (01) ==
LOC: RAD 13:16
PROVIDERS: PCP Nurse Practitioner Family; Visit Provider Nurse Practitioner Family
DX: Z12.31 Encounter for screening mammogram for malignant neoplasm of breast (principal)
CPT/HCPCS: 77063; 77067

== ENCOUNTER 2024-06-17 12:42 | Outpatient (CLI) | payer BC, SELFPAY ==
--- NOTE | 2024-06-17 12:45 | US_ITS ---
FINAL REPORT CLINICAL HISTORY: NODULE COMPARISON: CTA chest 05/23/2024 FINDINGS: Sonographic images of the thyroid gland were obtained. The right thyroid lobe measures 42 mm in length. The left thyroid lobe measures 41 mm in length. The thyroid isthmus measures 4 mm. The echogenicity is normal. Nodule in the right isthmus measures 4 mm, solid and hypoechoic, TR 4. Left lobe 19 mm cystic and solid hypoechoic TR 3 nodule. IMPRESSION: TR 3 left lobe nodule and TR 4 right isthmus nodule. Recommend 6-12 month follow-up per TI-RADS criteria. Reviewed, Interpreted and Dictated by Raman Remy III, MD Transcribed by Hetal Nunez Authenticated and [facility]
== END 2024-06-17 23:59 | disposition home or self-care (01) ==
LOC: RAD 12:42
PROVIDERS: PCP Nurse Practitioner Family; Visit Provider Nurse Practitioner Family
DX: E04.1 Nontoxic single thyroid nodule (principal)
CPT/HCPCS: 76536

== ENCOUNTER 2024-07-19 13:30 | Outpatient (CLI) | payer BC, SELFPAY ==
[2024-07-19 15:04] LABS: Free T4 (Free Thyroxine) 1.07 ng/dl (0.78-2.19)
[2024-07-19 15:19] LABS: Thyroid Stimulating Hormone 1.73 uIU/mL (0.465-4.68)
[2024-07-21 12:39] LABS: Thyroid Peroxidase Antibodies 19 IU/mL (0-34)
== END 2024-07-19 23:59 | disposition home or self-care (01) ==
LOC: LAB 13:32
PROVIDERS: PCP Family Medicine; Visit Provider Nurse Practitioner
DX: E04.1 Nontoxic single thyroid nodule (principal)
CPT/HCPCS: 36415; 84439; 84443; 86376

== ENCOUNTER 2024-08-23 10:10 | Outpatient (CLI) | payer BC, SELFPAY ==
--- NOTE | 2024-08-23 10:19 | CA_ITS ---
FINAL REPORT TECHNIQUE: Graded compression, spectral analysis and ultrasound images of the venous system of the upper extremity were obtained. CLINICAL HISTORY: DVT of left IJ, subclavian and axillary veins 05/23/24, Patient states she is seeing a president and chief executive officer for recent D[place] [facility] She denied trauma. Currently taking 20 mg Xarelto daily. COMPARISON: 05/24/2024 FINDINGS: The jugular vein, subclavian vein, axillary vein, brachial vein, cephalic vein and basilic venous system are fully compressible and demonstrate no evidence of thrombosis. IMPRESSION: Previously identified left upper extremity thrombus has resolved. Reviewed, Interpreted and Dictated by Rl Jeffries MD Transcribed by Nellie Mosher Authenticated and [facility]
== END 2024-08-23 23:59 | disposition home or self-care (01) ==
LOC: RT 10:11
PROVIDERS: PCP Family Medicine; Visit Provider Physician Assistant
DX: I82.B12 Acute embolism and thrombosis of left subclavian vein (principal)
CPT/HCPCS: 93971

== ENCOUNTER 2024-09-23 08:26 | Outpatient (CLI) | payer BC, SELFPAY ==
[2024-09-24 14:11] LABS: Anti-Cardio Antibody IgM 12 MPL U/mL (0-12); Anti-Cardiolipin Antibody IgG <9 GPL U/mL (0-14)
[2024-09-25 14:09] LABS: Anti-Thrombin III Antigen 87 % (72-124); Protein C Functional 134 % (73-180); Protein S Functional 62 % (63-140)
[2024-09-26 15:18] LABS: Beta-2 Glycoprotein I Ab, IgG <9 (0-20); Beta-2 Glycoprotein I Ab, IgM <9 (0-32)
[2024-10-01 01:08] LABS: APTT 29.6 sec (.); Anti-Cardiolipin Antibody IgG <10 GPL (.); Anti-Cardiolipin Antibody IgM <10 MPL (.); Beta-2 Glycoprotein I Ab, IgA <10 SAU (.); Beta-2 Glycoprotein I Ab, IgG <10 SGU (.); Beta-2 Glycoprotein I Ab, IgM <10 SMU (.); Hexagonal Phase Phospholipid 12 sec (.); Prothrombin Time 10.8 sec (.); Thrombin Time 15.7 sec (.)
== END 2024-09-23 23:59 | disposition home or self-care (01) ==
LOC: LAB 08:27
PROVIDERS: PCP Family Medicine; Visit Provider Internal Medicine Medical Oncology
DX: I82.A12 Acute embolism and thrombosis of left axillary vein (principal)
CPT/HCPCS: 36415; 81240; 81241; 85301; 85302; 85306; 85597; 85598; 85610; 85613; 85670; 85730; 86146; 86147

== ENCOUNTER 2024-10-05 12:38 | Outpatient (CLI) | payer BC, SELFPAY ==
--- NOTE | 2024-10-05 12:47 | US_ITS ---
FINAL REPORT TECHNIQUE: Sonographic images of the thyroid gland were obtained in the longitudinal and transverse planes. CLINICAL HISTORY: history of thyroid nodule COMPARISON: 06/17/2024 FINDINGS: The right lobe measures 1.7 x 4.6 x 1.4 cm. The right lobe is homogeneous. Unchanged isoechoic 11 mm nodule, wider than tall. The left lobe measures 1.4 x 4.8 x 1.3 cm. The left lobe is homogeneous. Lower pole mixed cystic and solid nodule measuring 17 mm, previously was 19 mm; however, differences may be technical. The isthmus measures 4 mm. This is normal. 5 mm colloid cyst in the isthmus is unchanged. No new nodules identified. IMPRESSION: Stable bilateral TR 3 nodules. 6-12 month follow-up per TI-RADS criteria recommended. Reviewed, Interpreted and Dictated by Bee Moffett MD Transcribed by Hetal Nunez Authenticated and [facility]
[2024-10-05 13:29] LABS: Anion Gap 12.7 mEq/L (5-15); Blood Urea Nitrogen 12 mg/dl (7-17); Calcium 9.4 mg/dl (8.4-10.2); Carbon Dioxide 29 mmol/L (22.0-30.0); Chloride 102 mmol/L (98-107); Estimated Glomerular Filt Rate 90 ml/min (>60); GFR (African American) 109 ML/MIN (>60); Glucose 116 mg/dl (74-100); Potassium 3.7 mmoL/L (3.5-5.1); Sodium 140 mmol/L (136-145)
== END 2024-10-05 23:59 | disposition home or self-care (01) ==
LOC: RAD 12:38
PROVIDERS: Physician Assistant; PCP Family Medicine; Visit Provider Nurse Practitioner
DX: E04.1 Nontoxic single thyroid nodule (principal); R07.9 Chest pain, unspecified
CPT/HCPCS: 36415; 76536; 80048

== ENCOUNTER 2024-10-30 14:50 | Emergency (ER) | payer BC, SELFPAY ==
--- NOTE | 2024-10-30 14:51 | HMH.EDGENADL ---
Discharge Plan Disposition Patient Disposition: Home, Self-Care Condition: Good Prescriptions Prescriptions: No Action irbesartan-hydrochlorothiazide 150-12.5 mg tablet 1 tab PO DAILY Qty: 90 3RF Mirena 21 mcg/24 hr (8 yrs) 52 mg intrauterine device 1 device intrauterine ONCE Referrals Follow up/Referrals: Harlan Babb MD [Primary Care Provider] - See instructions Joann Caldwell DPM [Staff Physician] - See instructions Activity Restrictions/Add. Instructions Additional Instructions/Restrictions: Continue taking Tylenol Motrin every 4 hours as needed for symptoms. You may use rest ice compression elevation as needed. I have provided you with podiatry follow-up if you continue to have problems or you can follow-up with your PCP return to the ER as needed. Clinical Impressions Clinical Impression: Right ankle sprain Qualifiers: Encounter type: sequela Involved ligament of ankle: unspecified ligament Qualified Code(s): S93.401S - Sprain of unspecified ligament of right ankle, sequela Instructions Patient Instructions: DI for Ankle Sprain Print Language Print Language: Romansh Discharge ED Provider: Avinash Waterman General Adult HPI <CECE Oconnell - Last Filed: 10/30/24 19:51> General Chief complaint: Extremity Injury, Lower Stated complaint: right ankle pain Time Seen by Provider: 10/30/24 14:51 History of Present Illness HPI narrative: Patient presents for evaluation of right ankle injury. Patient states that she twisted her ankle going up stairs. She was able to bear weight but was concerned as it continued to hurt more more over the last hour. She denies any numbness tingling loss of motor or sensory. She did not fall and suffer any other injury. Related Data Home Medications ?Medication ?Instructions ?Recorded ?Confirmed levonorgestrel (Mirena) 1 device intrauterine ONCE 06/29/24 10/26/24 Previous Rx's ?Medication ?Instructions ?Recorded irbesartan 150 1 tab PO DAILY #90 tabs 10/26/24 mg-hydrochlorothiazide 12.5 mg tablet Allergies Allergy/AdvReac Type Severity Reaction Status Date / Time Penicillins (PENICILLINS) Allergy Unknown Verified 10/26/24 08:57 PFSH <CECE Oconnell - Last Filed: 10/30/24 19:51> PENDING SALE TO [facility] Disclaimer: The information contained in this section may have been updated after the patient was seen, as this information can be updated by other users. Medical History (Updated 10/30/24 @ 17:20 by CECE Oconnell) Hx of deep venous thrombosis HTN (hypertension) Thyroid nodule Thyroid Nodule Deviated nasal septum Acute sinusitis Uses oral contraceptives as primary control method Morbid obesity with body mass index (BMI) of 40.0 to 49.9 Right ankle injury Right posterior tibial strain Posterior tibial tendinitis, right leg Sprain of deltoid ligament of right ankle Right ankle sprain Contusion of right knee Left wrist sprain Seasonal allergies Obesity, Class II, BMI 35-39.9 Surgical History No history of previous surgery Family History Other No significant family history Social History Smoking Status: Never smoker alcohol intake: never current occupational status: other Travel in the last 8 weeks: None housing: house Have you lived/traveled outside US in past 30 days?: No Contact w/someone who lives/traveled outside US past 30 days?: No Exposure to someone with infectious disease in past 14 days?: No Do you have a fever (greater than 100.4 F or 38 C)?: No Have you tested positive for COVID-19: No Exposed to someone with COVID-19 in past 14 days?: No Do you have a sore throat?: No Do you have a cough?: No Do you have any weakness?: No Do you have any diarrhea?: No Are you experiencing any unusual bleeding?: No Do you have any muscle aches/pain?: No Do you have any abdominal pain?: No Are you experiencing loss of taste or smell?: No Other Medical History Have you received the Flu Vaccine for this season: No Have you received the Pneumonia Vaccine: No <CECE Oconnell - Last Filed: 10/30/24 19:51> ROS Obtained: Yes Systems reviewed as appropriate & no additional complaints except as documented Physical Exam <CECE Oconnell - Last Filed: 10/30/24 19:51> General General appearance: alert and in no apparent distress Respiratory Respiratory exam: Present normal lung sounds bilaterally Cardiovascular Cardiovascular exam: Present regular rate Neurological Exam Neurological exam: Present alert and oriented X3 Medical Decision Making <CECE Oconnell - Last Filed: 10/30/24 19:51> Medical Records Screening: Per USPSTF and CDC recommendations, given the prevalence of disease in our region, it is our hospital?s policy to screen for HIV and viral Hepatitis for all patients aged 18 and over and those with ongoing risk factors. Jose Inquiry Pt receiving controlled substance: No Vital Signs: 10/30/24 15:02 10/30/24 15:09 10/30/24 17:27 Temperature 98.1 F 98.4 F Temperature Source Oral Pulse Rate 71 70 Pulse Rate [Right Radial] 82 Respiratory Rate 18 18 Blood Pressure 119/64 121/74 Blood Pressure [Right Arm] 135/72 Blood Pressure Mean [Right Arm] 93 Blood Pressure Position Sitting 02 Sat by Pulse Oximetry 96 98 Oxygen Delivery Method Room Air Orders (Tests/Meds): ED MEDICATIONS Discontinued Medications Generic Name Dose Route Start Last Admin Trade Name Freq PRN Reason Stop Dose Admin Acetaminophen 1,000 mg 10/30/24 15:14 10/30/24 15:18 Acetaminophen 500mg Tab PO 10/30/24 15:15 1,000 mg ONCE ONE Administration Ibuprofen 800 mg 10/30/24 15:14 10/30/24 15:18 Ibuprofen 400 Mg Tablet PO 10/30/24 15:15 800 mg ONCE ONE Administration ORDERS Category Date Time Status Ankle XR -Right minimum 3 Views [XR ankle RT min 3V] Exams 10/30/24 15:04 Completed Stat Foot XR right 2 views [XR foot RT 2V] Stat Exams 10/30/24 15:04 Completed Medical Decision Narrative: In summary patient is a 48-year-old female who presents to the emergency department for evaluation of right ankle injury. Patient is hemodynamically stable upon arrival, afebrile. Physical exam is remarkable for bimalleolar swelling and ecchymosis but no bony deformity. Patient is neurovascular intact distally. There is palpable DP and PT. She has full but painful range of motion. Differential diagnosis includes sprain versus fracture. Initial workup will be conducted with plain film x-rays. Initial interventions include Tylenol and ibuprofen. Initial workup reviewed by me and my informal interpretation prior to radiology read shows no acute fracture.. Upon repeat evaluation patient is able to ambulate and bear weight.. Given this patient is appropriate for discharge with follow-up with her PCP for no improvement or worsening signs or symptoms or return to the ER. <Avinash Waterman MD - Last Filed: 10/30/24 20:26> Vital Signs: 10/30/24 15:02 10/30/24 15:09 10/30/24 17:27 Temperature 98.1 F 98.4 F Temperature Source Oral Pulse Rate 71 70 Pulse Rate [Right Radial] 82 Respiratory Rate 18 18 Blood Pressure 119/64 121/74 Blood Pressure [Right Arm] 135/72 Blood Pressure Mean [Right Arm] 93 Blood Pressure Position Sitting 02 Sat by Pulse Oximetry 96 98 Oxygen Delivery Method Room Air Orders (Tests/Meds): ED MEDICATIONS Discontinued Medications Generic Name Dose Route Start Last Admin Trade Name Freq PRN Reason Stop Dose Admin Acetaminophen 1,000 mg 10/30/24 15:14 10/30/24 15:18 Acetaminophen 500mg Tab PO 10/30/24 15:15 1,000 mg ONCE ONE Administration Ibuprofen 800 mg 10/30/24 15:14 10/30/24 15:18 Ibuprofen 400 Mg Tablet PO 10/30/24 15:15 800 mg ONCE ONE Administration ORDERS Category Date Time Status Ankle XR -Right minimum 3 Views [XR ankle RT min 3V] Exams 10/30/24 15:04 Completed Stat Foot XR right 2 views [XR foot RT 2V] Stat Exams 10/30/24 15:04 Completed Medical Decision Narrative: In summary patient is a 48-year-old female who presents to the emergency department for evaluation of right ankle injury. Patient is hemodynamically stable upon arrival, afebrile. Physical exam is remarkable for bimalleolar swelling and ecchymosis but no bony deformity. Patient is neurovascular intact distally. There is palpable DP and PT. She has full but painful range of motion. Differential diagnosis includes sprain versus fracture. Initial workup will be conducted with plain film x-rays. Initial interventions include Tylenol and ibuprofen. Initial workup reviewed by me and my informal interpretation prior to radiology read shows no acute fracture.. Upon repeat evaluation patient is able to ambulate and bear weight.. Given this patient is appropriate for discharge with follow-up with her PCP for no improvement or worsening signs or symptoms or return to the ER. I was consulted by the DEB, and we discussed the complexity of the problems being addressed. I approved the treatment and management plan for this patient's care in the Emergency Department, thus performing a substantive portion of the medical decision making. Avinash Waterman MD Critical Care <CECE Oconnell - Last Filed: 10/30/24 19:51> Critical Care Time Critical Care Time: No
[2024-10-30 15:02] VITALS: BP 135/72; PULSE 82; RESP 18; TEMP 36.7; O2SAT 96; BMI 44.6
--- NOTE | 2024-10-30 15:04 | XR_ITS ---
PROCEDURE INFORMATION: Exam: XR Right Ankle Exam date and time: 10/30/2024 3:04 PM Age: 48 years old Clinical indication: Injury or trauma; Other: Twisted ankle; Additional info: Twisted ankle. Pain in medial side of right foot/ankle. TECHNIQUE: Imaging protocol: Radiologic exam of the right ankle. Views: 3 or more views. COMPARISON: CR XR ANKLE RT MIN 3V 11/26/2022 8:46 AM FINDINGS: Bones/joints: There is no evidence of acute fracture.There is no evidence of malalignment or dislocation. Soft tissues: Soft tissue swelling of the ankle IMPRESSION: There is no evidence of acute fracture.There is no evidence of malalignment or dislocation.
--- NOTE | 2024-10-30 15:04 | XR_ITS ---
PROCEDURE INFORMATION: Exam: XR Right Foot Exam date and time: 10/30/2024 3:03 PM Age: 48 years old Clinical indication: Injury or trauma; Other: Twisted ankle; Additional info: Twisted ankle. Pain in medial side of right foot/ankle. TECHNIQUE: Imaging protocol: Radiologic exam of the right foot. Views: 1 or 2 views. COMPARISON: CR XR ANKLE RT MIN 3V 11/26/2022 8:46 AM FINDINGS: Bones/joints: There is no evidence of acute fracture.There is no evidence of malalignment or dislocation. Soft tissues: Normal. IMPRESSION: There is no evidence of acute fracture.There is no evidence of malalignment or dislocation.
[2024-10-30 15:09] VITALS: BP 119/64; PULSE 71; O2SAT 98
[2024-10-30] MEDS: ACETAMINOPHEN 500MG TAB 1000 MG PO (15:18)
[2024-10-30] MEDS: IBUPROFEN 400 MG TABLET 800 MG PO (15:18)
[2024-10-30 17:27] VITALS: BP 121/74; PULSE 70; RESP 18; TEMP 36.9
== END 2024-10-30 17:28 | disposition home or self-care (01) ==
PROVIDERS: Emergency Provider Emergency Medicine; PCP Family Medicine
DX: S93.401A Sprain of unspecified ligament of right ankle, initial encounter (principal); M25.571 Pain in right ankle and joints of right foot; X58.XXXA Exposure to other specified factors, initial encounter; Y93.89 Activity, other specified; Y92.008 Other place in unspecified non-institutional (private) residence as the place of occurrence of the external cause
CPT/HCPCS: 73610; 73620; 99283

== ENCOUNTER 2024-12-30 08:25 | Outpatient (CLI) | payer BC, SELFPAY ==
[2025-01-11 20:10] LABS: APTT 27.8 sec (.); Anti-Cardiolipin Antibody IgG <10 GPL (.); Anti-Cardiolipin Antibody IgM <10 MPL (.); Beta-2 Glycoprotein I Ab, IgA <10 SAU (.); Beta-2 Glycoprotein I Ab, IgG <10 SGU (.); Beta-2 Glycoprotein I Ab, IgM <10 SMU (.); Hexagonal Phase Phospholipid 13 sec (.); Prothrombin Time 11.2 sec (.); Thrombin Time 16.3 sec (.)
== END 2024-12-30 23:59 | disposition home or self-care (01) ==
LOC: LAB 08:26
PROVIDERS: PCP Family Medicine; Visit Provider Internal Medicine Medical Oncology
DX: I82.A12 Acute embolism and thrombosis of left axillary vein (principal); Z79.01 Long term (current) use of anticoagulants
CPT/HCPCS: 36415; 85597; 85598; 85610; 85613; 85670; 85730; 86146; 86147

== ENCOUNTER 2025-01-17 13:09 | Outpatient (CLI) | payer BC, SELFPAY ==
[2025-01-17 13:39] LABS: Basophils # 0.1 K/mm3 (0-0.2); Basophils % 0.6 % (0.1-2.0); Eosinophils # 0.1 K/mm3 (0.0-0.4); Eosinophils % 0.8 % (0.1-12.0); Hematocrit 40.7 % (37.0-47.0); Hemoglobin 13.4 g/dL (12.2-16.2); Lymphocytes # 2.2 K/mm3 (0.7-4.5); Lymphocytes % 23.3 % (10-50); Mean Corpuscular HGB Conc 32.9 g/dL (31.8-35.4); Mean Corpuscular Hemoglobin 28.2 pg (27.0-31.2); Mean Corpuscular Volume 85.5 fl (81-99); Mean Platelet Volume 10.1 fl (7.4-10.4); Monocytes # 0.7 K/mm3 (0.1-1.0); Monocytes % 7.4 % (1.7-9.3); Neutrophils # 6.4 K/mm3 (1.8-7.8); Neutrophils % 67.6 % (37.0-80.0); Platelet Count 422 K/mm3 (142-424); Red Blood Count 4.76 M/mm3 (4.20-5.40); Red Cell Distribution Width 12.6 % (11.5-17.5); White Blood Count 9.5 K/mm3 (4.8-10.8)
[2025-01-17 19:33] LABS: Alanine Aminotransferase 23 U/L (12-78); Albumin Level 4.3 g/dl (3.5-5.0); Albumin/Globulin Ratio 1.8 (1.1-1.8); Alkaline Phosphatase 82 U/L (38-126); Anion Gap 12.2 mEq/L (5-15); Aspartate Amino Transferase 28 U/L (14-36); Bilirubin,Total 0.3 mg/dl (0.2-1.3); Blood Urea Nitrogen 11 mg/dl (7-17); Calcium 9.3 mg/dl (8.4-10.2); Carbon Dioxide 23 mmol/L (22.0-30.0); Chloride 107 mmol/L (98-107); Estimated Glomerular Filt Rate 107 ml/min (>60); GFR (African American) 129 ML/MIN (>60); Globulin 2.4 g/dL (1.3-3.2); Glucose 93 mg/dl (74-100); Potassium 4.2 mmoL/L (3.5-5.1); Sodium 138 mmol/L (136-145); Total Protein,Serum 6.7 g/dl (6.3-8.2)
== END 2025-01-17 23:59 | disposition home or self-care (01) ==
LOC: LAB 13:10
PROVIDERS: PCP Family Medicine; Visit Provider Internal Medicine Medical Oncology
DX: I82.A12 Acute embolism and thrombosis of left axillary vein (principal)
CPT/HCPCS: 36415; 80053; 85025

== ENCOUNTER 2025-04-11 12:34 | Outpatient (CLI) | payer BC, SELFPAY ==
--- NOTE | 2025-04-11 12:50 | US_ITS ---
FINAL REPORT TECHNIQUE: Sonographic images of the thyroid gland were obtained in the longitudinal and transverse planes. CLINICAL HISTORY: nodules COMPARISON: 10/05/2024 FINDINGS: The right lobe measures 1.6 x 4.4 x 1.5 cm. The right lobe is homogeneous. There is a 9 mm, isoechoic nodule in the upper pole measuring smaller than on prior exam, likely technical. No new right lobe nodule is identified. The left lobe measures 1.6 x 4.1 x 1.5 cm. The left lobe is homogeneous. There is a hypoechoic, 17 mm, mixed cystic and solid nodule which is unchanged. The isthmus measures 7 mm. This is normal. There is a stable, small hypoechoic nodule in the isthmus. IMPRESSION: TIRADS category 3, stable bilateral nodules. Consider follow-up if clinically indicated. Reviewed, Interpreted and Dictated by Bee Moffett MD Transcribed by Franchesca Dial Authenticated and [facility]
[2025-04-11 14:13] LABS: Free T4 (Free Thyroxine) 1.17 ng/dl (0.78-2.19)
[2025-04-11 14:28] LABS: Thyroid Stimulating Hormone 1.91 uIU/mL (0.465-4.68)
== END 2025-04-11 23:59 | disposition home or self-care (01) ==
LOC: RAD 12:35
PROVIDERS: PCP Family Medicine; Visit Provider Nurse Practitioner
DX: E04.2 Nontoxic multinodular goiter (principal)
CPT/HCPCS: 36415; 76536; 84439; 84443

== ENCOUNTER 2025-08-11 07:46 | Outpatient (CLI) | payer BC, SELFPAY ==
--- OUTSIDE RECORDS SUMMARY | 2015-05-15 10:05 | XMS_ITS | Continuity of Care Document ---
Author Organization [employer] [place] Address [address] [place] [address] Phone Care Team Providers Care Home Theater Specialist Name Role Phone Des PTNito Unavailable Unavailable Procedures Procedure Date THERAPEUTIC EXERCISES MANUAL THERAPY HOT/COLD PACK THERAPEUTIC EXERCISES MANUAL THERAPY HOT/COLD PACK ELECTRIC STIMULATION UNATT THERAPEUTIC EXERCISES MANUAL THERAPY HOT/COLD PACK ELECTRIC STIMULATION UNATT PT EVALUATION THERAPEUTIC EXERCISES MANUAL THERAPY Advance Directives Directive Yes / No Effective Date File Name No Information Encounters Encounter Description Practice Location Reason(s) For Visit Diagnoses Date Provider Providers Copied on Encounter [facility], [address] [address], [place], [place], [id number], tel:[phone] [facility] No Information Des [place]. , [place], [place]. [facility], [address], [place], [place], [id number], tel:[phone] [facility] No Information 5 Des Beauchamp. , [place], [place]. Referring Provider: Harshad Liz, [address] [place] [address], [id number]. tel:[phone] [facility], [address], [id number], tel:[phone] [facility] No Information Feb- 5 [place], [place], . Referring Provider: Harshad Liz, [address] [place] [address], [address]. tel:[phone] [facility] [address], [id number], tel:[phone] [facility] No Information Feb- 5 [place], [place], [place]. Referring Provider: Harshad Liz, [address] [place] [address], [id number]. tel:[phone] [facility] [address], [id number], tel:[phone] [facility] Pain in joint involving shoulder regionDisorders of bursae and tendons in shoulder region, unspecifiedAdhesive capsulitis of shoulder Feb- 5 [place], [place], . Referring Provider: Harshad Liz, [address] [place] [address], [address]. tel:[phone] Family History Family Member Type Diagnosis Age At Onset No Information Payers Payer name Insurance type Covered green party ID Authormonika stahl(s) [facility] [id number] Social History Type Description Quantity Date Captured Comments Sex Female Smoking Status No Information Chief Complaint And Reason For Visit No Information Reason For Referral Reason For Referral No Information History Of Present Illness Encounter Date Complaint History Of Prese nt Illness No Information Functional Status Date Functional Assessmen t No Information Instructions Date Instruction Additional Infor mation No Information Assessments Type Assessment Date No Information Patient Care Teams Name Effective Dates (start - stop) Status Members No Information
--- OUTSIDE RECORDS SUMMARY | 2025-05-11 05:45 | XMS_ITS ---
Author Organization [facility] Address 12[address] [facility] 36 [facility] [address] [place] [phone] Care Team Providers Care Residential Care Officer Name Role Phone Jordyn Rincon Primary Care Provider Daphne Raza Unavailable [phone] Allergies Allergen (clinical drug ingredient) Drug/Non Drug [...] Provider Diagnosis [facility] [address] [facility] [address] [place] [phone] 05/11/2025 Daphne Lozanojamar History of DVT (deep [...] * ILENE SPANNDOB:[birth year] (49 yo F)Acc No.[id number]:05/11/2025 Progress Notes Patient: VIET SAABNIFER Provider: CECE Almaraz :1975 A ge:49 Y S ex:Female Date:05/11/2025 Address:[address] [place], [place] [phone] Pcp:Jordyn Rincon Subjective: * Chief Complaints: * [...] 8 5610 PROTHROMBIN TIME, Modifiers: QW , 705[address] CAPILLARY BLOOD DRAW, 1036F TOBACCO NON-USER, G8783 BP SCR PRFRM RCMDD DEFIND SCR INTVL, G8752 MOST RECENT SYSTOLIC BP < 140MM HG, G8754 MOST RECENT DIASTOLIC BP < 90MM HG * Follow Up: 2 Weeks * Images: Billing Information: * Visit Code: 67602 Office Visit, Est Pt., Level 2. * Procedure Codes: 77548 PROTHROMBIN TIME. Modifiers: QW 32613 CAPILLARY BLOOD DRAW. 1036F TOBACCO NON-USER. G8783 BP SCR PRFRM RCMDD DEFIND SCR INTVL. G8752 MOST RECENT SYSTOLIC BP < 140MM HG. G8754 MOST RECENT DIASTOLIC BP < 90MM HG. * Electronic signature of CECE Dumont on 08/11/2025 at 07:49 AM EDT Sign off status: Pending * Provider: CECE Almaraz Date: 0 05/11/2025 Generated for Segundo roberts/Tressa/eTransmitting on: 1 07:49 AM EDT History and Physical Notes * HPI (History [...]
--- OUTSIDE RECORDS SUMMARY | 2025-05-25 06:00 | XMS_ITS ---
Author Organization [facility] Address [address] [place] [phone] Care Team Providers Care Steam Hand Name Role Phone Jordyn Rincon Primary Care Provider Daphne Raza [phone] REASON FOR VISIT 2 week f/u Encounters Encounter Location Date Provider Diagnosis [facility] [address] [place] [phone] 05/25/2025 Daphne Raza Plan Of Treatment No Information Progress Notes * ILENE SPANNDOB:[birth year] (49 yo F)Acc No.[id number]:05/25/2025 Progress Notes Patient: Tyesha FLOWERSDANIELA ILENE Provider: CECE Almaraz :1975 A ge:49 Y S ex:Female Date:05/25/2025 Address:[address] [place], [place] [phone] Pcp:Jordyn Rincon Subjective: * Chief Complaints: * 1 . 2 week f/u. * Medical History: Objective: * Vitals: Assessment: Plan: * Treatment: * Images: Billing Information: * Visit Code: * Procedure Codes: * Electronic signature of CECE Dumont on 08/11/2025 at 07:50 AM EDT Sign off status: Pending * Provider: CECE Almaraz Date: 0 05/25/2025 Generated for Gabbimar roberts/Tressa/eTransmitting on: 1 07:50 AM EDT
--- OUTSIDE RECORDS SUMMARY | 2025-06-24 06:00 | XMS_ITS ---
Author Organization [facility] Address 1210 [facility] 36 [facility] [address] [place], [place] [phone] Care Team Providers Care Lumber Straightener Name Role Phone Jordyn Rincon Primary Care Provider Ernie Fleming Unavailable [phone] Allergies Allergen (clinical drug ingredient) Drug/Non Drug [...] 06/24/2025 Encounters Encounter Location Date Provider Diagnosis [facility] [address] [facility] [address] [place] [phone] 06/24/2025 Ernie Fleming Allergic conjunctivi tis of [...] * ILENE HENSONDOB:[birth year] (49 yo F)Acc No.[id number]:06/24/2025 Progress Notes Patient: ILENE SAAB Provider: Amrita Fleming M.D. :1975 A ge:49 Y S ex:Female Date:06/24/2025 Address:[address] [place] [address] Pcp:Jordyn Rincon Subjective: * Chief Complaints: * [...] * Images: Billing Information: * Visit Code: 80638 Office Visit, Est Pt., Level 3. * Procedure Codes: * Electronic signature of Marquita Fleming MD on 08/11/2025 at 07:49 AM EDT Sign off status: Pending * Provider: Amrita Fleming M.D. Date: 0 06/24/2025 Generated for Segundo roberts/Tressa/Jluisitting on: 07:49 AM EDT History and Physical Notes [...]
--- OUTSIDE RECORDS SUMMARY | 2025-07-03 05:30 | XMS_ITS ---
Author Organization [facility] Address [address] [facility] [address] [place] [id number] Care Team Providers Care Car Sales Representative Name Role Phone Jordyn Rincon Primary Care Provider [phone] Katiuska Sharpe Unavailable [phone] Allergies Allergen (clinical drug ingredient) Drug/Non Drug [...] Interpretation:Normal Performing Lab: Notes/Report: Test performed by [facility], [facility] [address] [place] [address] , [address], [place] [address] Luisito Torres MD, Elevator Inspector CLIA: [id number] Sodium 139 135-145 mmol/L Potassium 4.2 3.5-5.3 [...] 104 Performing Lab: Notes/Report: Test performed by [facility], [address] , [place] [address] Luisito Torres MD, Elevator Inspector CLIA: [id number] Cholesterol 213 <200 mg/dL Triglycerides 104 <150 [...] Body mass index 40+ - severely obese (612870353) Adult BMI 45.0-49.9 kg/sq m (Z68.42) Active confirmed Problem Mixed anxiety and depressive disorder (138854847) Depression with anxiety (F41.8) Active confirmed Vital Signs Weight 291 lbs 07/03/2025 Blood pressure systolic 128 mm Hg 07/03/20 25 Blood pressure diastolic 78 mm Hg 025 Heart Rate 60 /min 07/03/2025 Height 67 in 07/03/2025 BMI 45.57 kg/m2 07/03/2025 Encounters Encounter Location Date Provider Diagnosis [facility] [address] [facility] [address] [id number] 07/03/2025 Katiuska Sharpe History of DVT (deep vein thrombosis) Z86.718 ; Heterozygous for prothrombin [id number] mutation D68.52 ; Anticoagulant long-term use Z79.01 ; Lipid screening Z13.220 ; Environmental allergies Z91.048 ; Adult BMI 45.0-49.9 kg/sq m Z68.42 ; Depression with anxiety F41.8 and HTN (hypertension) I10 Assessments Encounter Date Diagnosis (ICD Code) Assessment Notes Treatment Notes Treatment Clinical Notes Section Notes 07/03/2025 History of DVT (deep vein thrombosis) (ICD-10 - Z86.718) 07/03/2025 Heterozygous for prothrombin L93061T mutation (ICD-10 - D68.52) she continue to follow with Dr. Bernal 07/03/2025 Anticoagulant long-term use (ICD-10 - Z79.01) she continues [facility] INR home monitoring weekly as is required by the [facility] 07/03/2025 Lipid screening (ICD-10 - Z13.220) 07/03/2025 [...] Treatment Notes Assessment Notes Heterozygous for prothrombin U81306L mutation she continue to follow with Dr. Bernal Anticoagulant long-term use she continue s [facility] INR home monitoring weekly as is [...] * ILENE SPANNDOB:[birth year] (49 yo F)Acc No.[id number]:07/03/2025 Progress Notes Patient: ILENE SAAB Provider: LAKHWINDER Bradford :1975 A ge:49 Y S ex:Female Date:07/03/2025 Address:[address] [place] [address] Pcp:Jordyn Rincon Subjective: * Chief Complaints: * [...] (Primary) 2 . H eterozygous for prothrombin [id number] mutation - D68.52 3 . A nticoagulant [...] AM EDT >see encounter 2.?Heterozygous for prothrombin U74070W mutation?LAB: P-Comprehensive Metabolic Panel (CMP) (Collection Date [...] Orally, Once a day.?? Notes: she continues [facility] INR home monitoring weekly as is [...] Codes: 8 5025 CBC WITH AUTO DIFF, 84103 VENIPUNCT, ROUTINE*, 1036F TOBACCO NON-USER, 3074F SYST BP LT 130 MM HG, 3078F DIAST BP < 80 MM HG * Follow Up: 6 Months,and prn * Images: Billing Information: * Visit Code: 44959 Office Visit, Est Pt., Level 4. * Procedure Codes: 79891 CBC WITH AUTO DIFF. 36810 VENIPUNCT, ROUTINE*. 1036F TOBACCO NON-USER. 3074F SYST BP LT 130 MM HG. 3078F DIAST BP < 80 MM HG. * Electronic signature of Ny Sharpe APRN on 08/11/2025 at 07:49 AM EDT Sign off status: Pending * Provider: LAKHWINDER Bradford Date: 0 07/03/2025 Generated for Segundo roberts/Tressa/Jluisitting on: 1 07:49 AM EDT History and [...]
--- OUTSIDE RECORDS SUMMARY | 2025-07-24 11:05 | XMS_ITS ---
Author Organization [facility] Address [address] [facility] [address] [facility] [address] [place], [place] [id number] Care Team Providers Care Services Mgr Name Role Phone Jordyn Rincon Primary Care Provider REASON FOR VISIT due mignon, col Encounters Encounter Location Date Provider Diagnosis [facility] [address] [place], [place] [id number] 07/24/2025 Jordyn Rincon Colon cancer screening Z12.11 and Breast cancer screening Z12.31 Assessments Encounter Date Diagnosis (ICD Code) Assessment Notes Treatment Notes Treatment Clinical Notes Section Notes 07/24/2025 Colon cancer screening (ICD-10 - Z12.11) 07/24/2025 Breast cancer screening (ICD-10 - Z12.31) Plan Of Treatment Pending Test Test Name Order Date Mammogram 07/24/2025 Cologuard 07/24/2025 Progress Notes * ILENE SPANNDOB:[birth year] (49 yo F)Acc No.[id number]:07/24/2025 Patient: Tyesha ILENE IQBAL :1975 A ge:49 Y S ex:Female Address:[address] [place] [id number] Subjective: * Chief Complaints: * D ue mignon, col * Medical History: * Surgical History: * Hospitalization/Major Diagno stic Procedure: * Medications: Objective: * Vitals: * Physical Examination: Assessment: * Assessment: 1. C isiah cancer screening - Z12.11 (Primary) 2 . B reast cancer screening - Z12.31 Plan: * Treatment: 2.?Breast cancer screening?Imaging: Mammogram* Andria Aviles 07/28/2025 02:3 3:00 PM EDT >sent to [facility] for referral to [facility] * Procedure Codes: * true * Date: Generated for Segundo roberts/Tressa/Jluisitting on: 07:49 AM EDT
--- NOTE | 2025-08-11 07:49 | MM_ITS ---
PROCEDURE INFORMATION: Exam: MG Bilateral Screening 3D Mammography Exam date and time: 08/11/2025 7:58 AM Age: 49 years old Clinical indication: Screening examination TECHNIQUE: Imaging protocol: Bilateral Screening tomosynthesis and 2D mammography including computer-aided detection (CAD) when performed. COMPARISON: 1. MG MM DIG SCREENING MAMM BI W/CAD 06/15/2024 1:12 PM 2. MG SCBI MM Dig screening mamm BI w/CAD 03/30/2018 10:05 AM FINDINGS: MAMMOGRAPHY: Breast composition: The breasts are heterogeneously dense, which may obscure small masses. Mass: None. Architectural distortion: None. Calcifications: No suspicious calcifications. Asymmetric density: None. Skin thickening: None. Axillary adenopathy: None. IMPRESSION: No mammographic evidence of malignancy. Annual screening is recommended unless otherwise clinically indicated. ASSESSMENT: BI-RADS Category 1: Negative.
--- OUTSIDE RECORDS SUMMARY | 2025-08-11 07:49 | XMS_ITS | Patient Health Record ---
[facility] Organization [facility] [address] [facility] [address] [id number] Care Team Providers Care Lithographing Machine Operator Name Role Phone Jordyn Rincon Primary Care Provider Salvatore Babb Unavailable [phone] Ernie Fleming Unavailable [phone] Katiuska Sharpe Unavailable [phone] Daphne Raza Unavailable [phone] Allergies Allergen (clinical drug ingredient) Drug/Non Drug [...] next check 2 weeks ideal INR 2-3 P-Comprehensive Metabolic Pa lili (CMP) Reviewed date:01/24/2025 05:34:46 PM Interpretation:Normal Performing Lab: Notes/Report: CLIA: [id number] Luisito Torres MD, [employer] [facility] , [address], [place] [address] Test performed by [employer], [employer] Sodium 138 135-145 mmol/L Potassium 4.4 3.5-5.3 mmol/L Chloride 100 97-108 mmol/L CO2 30 22-32 mmol/L Glucose 97 65-99 mg/dL BUN 13 6-20 mg/dL Creatinine 0.84 0.50-1.00 mg/dL Calcium 9.6 8.6-10.4 mg/dL eGFR by Creatinine 86 >59 mL/min/1.73m2 Protein 6.7 6.0-8.3 g/dL Albumin 4.3 3.5-5.3 g/dL Alkaline Phosphatase 93 35-121 IU/L ALT (SGPT) 18 <5-47 IU/L AST (SGOT) 20 <5-40 IU/L Bilirubin, Total 0.5 <0.2-1.2 mg/dL A/G Ratio 1.8 1.1-2.5 CBC Fingerstick (in house) Reviewed date:01/24/2025 05:34:46 PM Interpretation: Performing Lab: Notes/Report: wbc 8.2 3.5 - 10 lym 25.8 15 - 50 mid 5.9 2 - 15 gran 68.3 35 - 80 rbc 5.04 3.5 - 5.5 hgb 14.5 11.5 - 16.5 hct 43.4 35 - 55 mcv 86.1 75 - 100 mch 28.9 25 - 35 mchc 33.5 31 - 38 plat 431 100 - 400 Urinalysis - Inhouse Reviewed date:01/24/2025 05:34:46 PM Interpretation: Performing Lab: Notes/Report: Color/Clarity yellow Leuk neg Nitrite neg Urobili 3.2 Protein neg pH 6.0 Blood 2+ Sp. Gr. 1.025 Ketone neg Bili neg Gluc neg PT/INR Reviewed date:07/28/2025 12:45:13 PM Interpretation: Performing Lab: Notes/Report: INR 2.4 current dose 2.5 mg MF and 5 mg AOD new dose same next check 4 weeks ideal INR 2-3 PT/INR Reviewed date:07/28/2025 12:45:13 PM Interpretation: Performing Lab: Notes/Report: INR 2.4 current dose 2.5 mg MF and 5 mg AOD new dose same next check 4 weeks ideal INR 2-3 PT/INR (in house) Reviewed date:01/26/2025 03:04:57 PM Interpretation: Performing Lab: Notes/Report: PT 12.8 INR 1.1 current dose new start new dose 5mg qd next check 1 week PT/INR (in house) Reviewed date:05/11/2025 04:55:02 PM Interpretation:2.5 Performing Lab: Notes/Report: 2.5 PT 30.0 INR 2.5 current dose 2.5mg m/f and 5mg aod new dose same next check 2 weeks ideal INR 2-3 PT/INR (in house) Reviewed date:02/03/2025 01:50:18 PM Interpretation:3.2 Performing Lab: Notes/Report: 3.2 PT 37.8 INR 3.2 current dose 5mg daily new dose 2.5mg T, Sat and 5mg AOD next check 1 week PT/INR (in house) Reviewed date:02/09/2025 10:03:15 AM Interpretation: Performing Lab: Notes/Report: PT 39.8 INR 2.9 current dose 2.5 T,Sat and 5mg AOD new dose same next check 1 week CBC Venipuncture (in house) Reviewed date:07/17/2025 08:57:21 [...] date:07/17/2025 08:58:38 AM Interpretation:Normal Performing Lab: Notes/Report: CLIA: [id number] Luisito Torres MD, [employer] [address] [facility] , [address], [place] [address] Test performed by [employer], [facility] Sodium 139 135-145 mmol/L Potassium 4.2 3.5-5.3 [...] 104 Performing Lab: Notes/Report: Test performed by [employer] [address] [place] [address] , [address], [place] [address] Luisito Torres MD, [employer] CLIA: [id number] Cholesterol 213 <200 mg/dL Triglycerides 104 <150 [...] Results: 115 Units: mg/dL % Change: - ------- Test Date: 07/03/2025 LDL Results: 147 Units: mg/dL % Change: +27% PT/INR (in house) Reviewed date:03/30/2025 12:15:03 PM Interpretation: Performing Lab: Notes/Report: PT 22.2 INR 1.8 current dose 2.5 mg Tu, Sat. 5 mg AOD new dose 2.5mg Sat and 5mg AOD next check 1 week ideal INR 2-3 PT/INR (in house) Reviewed date:04/21/2025 01:22:53 PM Interpretation:3.1 Performing Lab: Notes/Report: 3.1 PT 37.3 INR 3.1 current dose 2.5 mg Sat,5 mg AOD new dose same next check 2 weeks ideal INR 2-3 CBC Venipuncture (in house) Reviewed date:01/02/2025 12:49:28 PM Interpretation: Performing Lab: Notes/Report: wbc 12.2 3.5 - 10 lymph 31.7% 15 - 50 mid 7.5% 2 - 15 gran 60.8% 35 - 80 rbc 5.45 3.5 - 5.5 hgb 15.4 11.5 - 16.5 hct 47.5 35 - 55 mcv 47.5 75 - 100 mch 87.2 25 - 35 mchc 32.4 31 - 38 platlet 194 100 - 400 Glycohemoglobin A1c (in hous e) Reviewed date:01/06/2025 03:10:22 PM Interpretation:5.5% Performing Lab: Notes/Report: 5.5% glycohemoglobin 5.5% 5 - 6.5 % P-Comprehensive Metabolic Pa lili (CMP) Reviewed date:01/06/2025 03:11:24 PM Interpretation:Normal Performing Lab: Notes/Report: Test performed by [employer] [address] [place] [address] , [place] [address] Luisito Torres MD, [employer] CLIA: [id number] Sodium 140 135-145 mmol/L Potassium 4.2 3.5-5.3 mmol/L Chloride 102 97-108 mmol/L CO2 25 22-32 mmol/L Glucose 96 65-99 mg/dL BUN 12 6-20 mg/dL Creatinine 0.76 0.50-1.00 mg/dL Calcium 9.8 8.6-10.4 mg/dL eGFR by Creatinine 97 >59 mL/min/1.73m2 Protein 7.1 6.0-8.3 g/dL Albumin 4.4 3.5-5.3 g/dL Alkaline Phosphatase 95 35-121 IU/L ALT (SGPT) 11 <5-47 IU/L AST (SGOT) 15 <5-40 IU/L Bilirubin, Total 0.4 <0.2-1.2 mg/dL A/G Ratio 1.6 1.1-2.5 P-Lipid Panel Reviewed date:01/06/2025 03:10:48 PM Interpretation:non-hdl 134 Performing Lab: Notes/Report: Test performed by [employer], [employer] [address] [place] [address] , [facility], [place] [address] Luisito Torres MD, [employer] CLIA: [id number] Cholesterol 181 <200 mg/dL Triglycerides 93 <150 mg/dL HDL Cholesterol 47 >39 mg/dL Cholesterol / HDL Ratio 3.85 0.00-4.44 Ratio Non-HDL Cholesterol 134 <130 mg/dL LDL Cholesterol (Calculation) 115 <130 mg/dL LDL Cholesterol Levels* Less than 100 mg/dL Optimal 100 to 129 mg/dL Near Optimal/ Above Optimal 130 to 159 mg/dL Borderline High 160 to 189 mg/dL High 190 mg/dL and above Very High * Categories as recommended by the 2004 ATPIII guidelines LDL/HDL Ratio 2.5 <3.3 Ratio LDL Cholesterol Patient History Test Date: 01/02/2025 LDL Results: 115 Units: mg/dL % Change: - PT/INR (in house) Reviewed date:02/16/2025 09:28:10 AM Interpretation:2.7 Performing Lab: Notes/Report: 2.7 PT 32.8 INR 2.7 current dose 2.5 Tu,Sat-5mg aod new dose same next check 2 weeks ideal INR 2-3 PT/INR (in house) Reviewed date:03/02/2025 02:14:35 PM [...] Interpretation:Normal Performing Lab: Notes/Report: Test performed by [employer] [facility] , [address], [place] [address] Luisito Torres MD, [employer] CLIA: [id number] Vitamin B12 701 509-8678 pg/mL P-Comprehensive Metabolic Pa lili (CMP) Reviewed date:03/16/2025 01:30:54 PM Interpretation:Normal Performing Lab: Notes/Report: Test performed by [employer] [address] [place] [address] , [address], [place] [address] Luisito Torres MD, [employer] CLIA: [id number] Sodium 139 135-145 mmol/L Potassium 4.5 3.5-5.3 [...] Interpretation:Normal Performing Lab: Notes/Report: Test performed by [employer] [address] [place] [address] [address], [place] [address] Luisito Torres MD, [employer] CLIA: [id number] TSH reflex to FT4 2.61 0.43-5.25 mU/L PT/INR (in house) Reviewed date:05/04/2025 09:51:14 AM Interpretation: Performing Lab: Notes/Report: PT 40.4 INR 3.4 current dose 2.5mg Sat,5 mg oad new dose 2.5mg M,F and 5mg AOD next check 1 week ideal INR 2-3 PT/INR Reviewed date:06/01/2025 12:28:44 PM Interpretation:3.0 Performing Lab: Notes/Report: 3.0 INR 3.0 current dose 2.5 mg MF and 5 mg AOD next check 1 week ideal INR 2-3 PT/INR Reviewed date:06/07/2025 01:44:54 PM Interpretation:2.9 Performing Lab: Notes/Report: 2.9 INR 2.9 current dose 2.5 mg MF and 5 mg AOD new dose same next check 2 weeks ideal INR 2-3 Medications Medication SIG (Take, Route, Frequency, Duration) Notes Start Date End Date Status Azelastine HCl 0.05 % 1 drop into affect ed eye Ophthalmic Twice a day 06/24/2025 Active Warfarin Sodium 5 MG 1 tablet Orally Once a day Active Claritin 10 MG 1 tablet Orally Once a day Active Irbesartan-hydroCHLOROthi azide 150-12.5 MG 1 tablet [...] MG) 20 MCG/DAY as directed Intrauterine Active PROzac 20 MG 1 capsule Orally Onc e a day; Duration: 30 days 07/17/2025 Active Immunizations Vaccine Route Administration Date Status Comme nts COVID 19 Moderna Unknown 02/05/2021 Administered COVID 19 Moderna Unknown 03/08/2021 Administered COVID 19 Moderna Unknown 09/27/2021 Administered Fluzone PF Quad (6-35 months) Unknown 09/14/2018 Admini stered Fluzone PF Quad (6-35 months) Unknown 08/12/2021 Admini stered Hepatitis A (adult) Unknown 09/14/2018 Administered Hepatitis A (adult) Unknown 04/04/2019 Administered Tetanus Tdap-Adacel (over 7yrs) Unknown 07/06/2021 Admi nistered Problems Problem Type SNOMED Code ICD Code Onset Dates Problem Status W/U Status Risk Notes Problem Hypertension (38546556) HTN (hypertension) (I10) Active confirmed Problem History of DVT (deep vein thrombosis) (965086407) History of DVT (deep vein thrombosis) (Z86.718) Active confirmed Problem Seasonal allergy (880174998) Seasonal allergies (J30.2) Active confirmed Problem Environmental allergy (568096503) Environmental allergies (Z91.048) Active confirmed Problem Paresthesia (16206718) Paresthesia (R20.2) Active confirmed Problem Mixed anxiety and depressive disorder (794588001) Depression with anxiety (F41.8) Active confirmed Problem Seasonal allergic rhinitis (939362292) Other seasonal allergic rhinitis (J30.2) Active confirmed Problem Thyroid nodule (442022237) Thyroid nodule (E04.1) Active confirmed Problem Morbid obesity (754200256) Obesity, Class III, BMI 40-49.9 (morbid obesity) (E66.01) Active confirmed Problem Long-term current use of anticoagulant (472597695) Anticoagulant long-term use (Z79.01) Active confirmed Problem Posterior rhinorrhea (90901508) PND (post-nasal drip) (R09.82) Active confirmed Problem Acute upper respiratory infection (82824740) Upper respiratory infection with cough and congestion (J06.9) Active confirmed Problem Body mass index 40+ - severely obese (928522809) Adult BMI 45.0-49.9 kg/sq m (Z68.42) Active confirmed Problem 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 Vital Signs Heart Rate 60 /min 07/03/2025 Blood pressure diastolic 78 mm Hg 07/03/2025 Height 67 in 07/03/2025 Blood pressure systolic 128 mm Hg 07/03/2025 Weight 291 lbs 07/03/2025 BMI 45.57 kg/m2 07/03/2025 Encounters Encounter Location Date Provider Diagnosis [facility] [address] [place] [id number] 01/02/2025 Katiuska Sharpe Diabetes mellitus screening Z13.1 ; HTN (hypertension) I10 ; URI (upper respiratory infection) J06.9 ; Head congestion R09.81 ; Lipid screening Z13.220 and Obesity, Class III, BMI 40-49.9 (morbid obesity) E66.01 [facility] [address] [place] [id number] 01/23/2025 Salvatore Babb HTN (hypertension) I 10 [facility] [address] [place] [id number] 01/26/2025 Salvatore Babb History of DVT (deep vein thrombosis) Z86.718 ; Heterozygous for prothrombin F52528C mutation D68.52 and Seasonal allergies J30.2 [facility] [address] [place] [address] [place] [id number] 02/03/2025 Daphne Crowdy History of DVT (deep vein thrombosis) Z86.718 and Heterozygous for prothrombin N20035G mutation D68.52 [facility] [address] [place] [address] [place] [id number] 02/09/2025 Daphne Crowdy History of DVT (deep vein thrombosis) Z86.718 and Heterozygous for prothrombin L26998F mutation D68.52 [facility] [address] [place] [address] [place] [id number] 02/16/2025 Daphne Crowdy History of DVT (deep vein thrombosis) Z86.718 and Heterozygous for prothrombin T70133U mutation D68.52 [facility] [address] [place] [address] [place] [id number] 03/02/2025 Daphne Crowdy History of DVT (deep vein thrombosis) Z86.718 ; Paresthesia R20.2 and Persistent cough R05.3 [facility] [address] [place] [id number] 03/30/2025 Daphne Crowdy History of DVT (deep vein thrombosis) Z86.718 [facility] [address] [place] [id number] 04/06/2025 Daphne Crowdy History of DVT (deep vein thrombosis) Z86.718 [facility] [address] [place] [id number] 04/20/2025 Daphne Crowdy History of DVT (deep vein thrombosis) Z86.718 [facility] [address] [place] [id number] 05/04/2025 Daphne Crowdy History of DVT (deep vein thrombosis) Z86.718 ; Anticoagulant long-term use Z79.01 and Other seasonal allergic rhinitis J30.2 [facility] [address] [place] [id number] 05/11/2025 Daphne Crowdy History of DVT (deep vein thrombosis) Z86.718 and Anticoagulant long-term use Z79.01 [facility] [address] [place], [place] [id number] 06/24/2025 Ernie Eastlake Allergic conjunctivi tis of right eye H10.11 [facility] [address] [place], [place] [id number] 07/03/2025 Katiuska Sharpe History of DVT (deep vein thrombosis) Z86.718 ; Heterozygous for prothrombin D93736Z mutation D68.52 ; Anticoagulant long-term use Z79.01 ; Lipid screening Z13.220 ; Environmental allergies Z91.048 ; Adult BMI 45.0-49.9 kg/sq m Z68.42 ; Depression with anxiety F41.8 and HTN (hypertension) I10 [facility] [address] [place], [place] [id number] 01/24/2025 J Valentín Rincon [facility] [address] [place], [place] [id number] 04/16/2025 J Valentín Rincon [facility] [address] [place], [place] [id number] 05/01/2025 J Valentín Rincon [facility] [address] [place], [place] [id number] 05/09/2025 J Valentín Rincon [facility] [address] [place], [place] [id number] 05/23/2025 J Valentín Rincon [facility] [address] [place], [place] [id number] 07/03/2025 J Valentín Rincon [facility] [address] [place], [place] [id number] 07/17/2025 Katiuska Sharpe [facility] [address] [place], [place] [id number] 07/24/2025 J Valentín Rincon Colon cancer screeni ng Z12.11 and Breast cancer screening Z12.31 [facility] [address] [place], [place] [id number] 07/27/2025 Daphne Ry Assessments Encounter Date Diagnosis (ICD Code) Assessment Notes Treatment Notes Treatment Clinical Notes Section Notes 01/26/2025 Heterozygous for prothrombin D82456G mutation (ICD-10 - D68.52) 02/03/2025 History of DVT (deep vein thrombosis) (ICD-10 - Z86.718) 02/03/2025 Heterozygous for prothrombin I57885T mutation (ICD-10 - D68.52) 02/09/2025 History of DVT (deep vein thrombosis) (ICD-10 - Z86.718) 02/09/2025 Heterozygous for prothrombin X33631N mutation (ICD-10 - D68.52) 02/16/2025 History of DVT (deep vein thrombosis) (ICD-10 - Z86.718) 02/16/2025 Heterozygous for prothrombin F48473R mutation (ICD-10 - D68.52) 03/02/2025 History of DVT (deep vein thrombosis) (ICD-10 - Z86.718) 03/02/2025 Paresthesia (ICD-10 - R20.2) 01/02/2025 HTN (hypertension) (ICD-10 - I10) 01/02/2025 Diabetes mellitus screening (ICD-10 - Z13.1) 03/30/2025 History of DVT (deep vein thrombosis) (ICD-10 - Z86.718) 04/06/2025 History of DVT (deep vein thrombosis) (ICD-10 - Z86.718) 04/20/2025 History of DVT (deep vein thrombosis) (ICD-10 - Z86.718) 05/04/2025 History of DVT (deep vein thrombosis) (ICD-10 - Z86.718) 01/23/2025 HTN (hypertension) (ICD-10 - I10) 01/26/2025 History of DVT (deep vein thrombosis) (ICD-10 - Z86.718) 05/04/2025 Anticoagulant long-term use (ICD-10 - Z79.01) Patient will have to remain on coumadin. Will order an mdINR machine so she can check her levels at home. 05/11/2025 History of DVT (deep vein thrombosis) (ICD-10 - Z86.718) 07/03/2025 History of DVT (deep vein thrombosis) (ICD-10 - Z86.718) 06/24/2025 Allergic conjunctivitis of right eye (ICD-10 - H10.11) 07/03/2025 Heterozygous for prothrombin C53258M mutation (ICD-10 - D68.52) she continue to follow with Dr. Bernal 07/24/2025 Colon cancer screening (ICD-10 - Z12.11) 07/24/2025 Breast cancer screening (ICD-10 - Z12.31) 07/03/2025 Anticoagulant long-term use (ICD-10 - Z79.01) she continues [facility] INR home monitoring weekly as is required by the machine company 05/11/2025 Anticoagulant long-term use (ICD-10 - Z79.01) Patient will have to remain on coumadin. Will order an mdINR machine so she can check her levels at home. 01/26/2025 Seasonal allergies (ICD-10 - J30.2) OTC antihistamine of choice 05/04/2025 Other seasonal allergic rhinitis (ICD-10 - J30.2) 03/02/2025 Persistent cough (ICD-10 - R05.3) Will start on flonase and antihistamine OTC. 01/02/2025 URI (upper respiratory infection) (ICD-10 - J06.9) fluids, rest, supportive measures for fever/symptom relief 01/02/2025 Head congestion (ICD-10 - R09.81) fluids, rest, supportive measures for fever/symptom relief 07/03/2025 Lipid screening (ICD-10 - Z13.220) 07/03/2025 Environmental allergies (ICD-10 - Z91.048) 01/02/2025 Lipid screening (ICD-10 - Z13.220) 01/02/2025 Obesity, Class III, BMI 40-49.9 (morbid obesity) (ICD-10 - E66.01) discussed weight loss with calories and portion control and increase in activity 07/03/2025 Adult BMI 45.0-49.9 kg/sq m (ICD-10 - Z68.42) Will try Contrave for weight loss if approved by insurance; discussed caloric and portion sizes and exercises along with meal frequency 07/03/2025 Depression with anxiety (ICD-10 - F41.8) If Contrave not covered will start Zoloft 07/03/2025 HTN (hypertension) (ICD-10 - I10) 01/02/2025 Other will consider cologuard 07/03/2025 Other she will schedu le her Mammogram; she will consider cologuard Plan Of Treatment Pending Test Test Name Order Date Mammogram 07/24/2025 Cologuard 07/24/2025 Insurance Providers Payer Name Payer Address Payer Phone Subscriber Number Group Number Insured Name Patient Relationship to Insured Coverage Start Date Coverage End Date [employer] [address] [place] [address] [id number] ILENE HENSON Self - patient is the insured Medical (General) History Medical History History ICD Code left axilla DVT thyroid nodule Pneumonia obesity + heterozygous for prothrombin gene muta tion + lupus anticoagulant Surgical History Surgery Date(Month/Year) Hospitalization History Reason Date(Month/Year) pregancy 2007
== END 2025-08-11 23:59 | disposition home or self-care (01) ==
LOC: RAD 07:47
PROVIDERS: PCP Family Medicine; Visit Provider Family Medicine
DX: Z12.31 Encounter for screening mammogram for malignant neoplasm of breast (principal); R92.333 Mammographic heterogeneous density, bilateral breasts
CPT/HCPCS: 77063; 77067

== ENCOUNTER 2025-09-21 22:57 | Emergency (ER) | payer BC, SELFPAY ==
--- OUTSIDE RECORDS SUMMARY | 2025-03-02 04:15 | XMS_ITS ---
[facility] Organization [facility] Address [address] [id number] Care Team Providers Care Retail Inventory Control Clerk Name Role Phone Jordyn Rincon Primary Care Provider Daphne Raza [phone] Allergies Allergen (clinical drug ingredient) Drug/Non Drug [...] Interpretation:Normal Performing Lab: Notes/Report: Test performed by [facility], [facility] [address] [place] [address] , [place] [address] Luisito Torres MD, [employer] CLIA: [id number] Vitamin B12 366 008-8710 pg/mL P-Comprehensive Metabolic Pa lili (CMP) Reviewed date:03/16/2025 01:30:54 PM Interpretation:Normal Performing Lab: Notes/Report: Test performed by [facility] [address] [place] [address] , [facility] [place] [address] Luisito Torres MD, [employer] CLIA: [id number] Sodium 139 135-145 mmol/L Potassium 4.5 3.5-5.3 [...] Interpretation:Normal Performing Lab: Notes/Report: Test performed by [facility] [address] [place] [address] , [address], [place] [address] Luisito Torres MD, [employer] CLIA: [id number] TSH reflex to FT4 2.61 0.43-5.25 mU/L [...] Status W/U Status Risk Notes Problem Paresthesia (69445076) Paresthesia (R20.2) Active confirmed Vital Signs Blood pressure systolic 112 mm Hg 03/02/20 25 Blood pressure diastolic 70 mm Hg 025 Heart Rate 67 /min 03/02/2025 Height 67 in 03/02/2025 Weight 291.8 lbs 03/02/2025 BMI 45.7 kg/m2 03/02/2025 Encounters Encounter Location Date Provider Diagnosis [facility] [address] [facility] [address] [id number] 03/02/2025 Daphne Raza History of DVT (deep [...] * ILENE HENSONDOB:[birth year] (49 yo F)Acc No.[id number]:03/02/2025 Progress Notes Patient: ILENE SAAB Provider: CECE Almaraz :1975 A ge:49 Y S ex:Female Date:03/02/2025 Address:[address] [place] [address] , [facility] Pcp:Jordyn Rincon Subjective: * Chief Complaints: * [...] AM)?Normal* Value Reference Range V itamin B12 048 961-7558 - pg/mL * Yanna Miller 03/10/2025 11:4 1:32 AM [...] 8 5610 PROTHROMBIN TIME, Modifiers: QW , 26716 CBC WITH AUTO DIFF, 3074F SYST BP LT 130 MM HG, 3078F DIAST BP < 80 MM HG * Follow Up: 4 Weeks * Images: Billing Information: * Visit Code: 35800 Office Visit, Est Pt., Level 3. * Procedure Codes: 45364 PROTHROMBIN TIME. Modifiers: QW 45716 CBC WITH AUTO DIFF. 3074F SYST BP LT 130 MM HG. 3078F DIAST BP < 80 MM HG. * Electronic signature of CECE Dumont on 09/21/2025 at 11:13 PM EST Sign off status: Pending * Provider: CECE Almaraz Date: 0 03/02/2025 Generated for Gabbii ng/Tressa/eTransmitting on: 1 11/21/2024 11:13 PM EST History and Physical Notes * HPI [...]
--- OUTSIDE RECORDS SUMMARY | 2025-03-30 06:30 | XMS_ITS ---
Author Organization [facility] Address [address] [facility] [address] [phone] Care Team Providers Care Dental Service Technician Name Role Phone Jordyn Rincon Primary Care Provider Daphne aRza Unavailable [phone] Allergies Allergen (clinical drug ingredient) Drug/Non Drug [...] Provider Diagnosis [facility] [address] [facility] [address] [place] [id number] 03/30/2025 Daphne Ry History of DVT (deep vein thrombosis) Z86.718 Assessments Encounter Date Diagnosis (ICD Code) Assessment Notes Treatment Notes Treatment Clinical Notes Section Notes 03/30/2025 History of DVT (deep vein thrombosis) (ICD-10 - Z86.718) Plan Of Treatment Next Appt Details Follow Up: 1 Week, Reason: Progress Notes * ILENE SPANNDOB:[birth year] (49 yo F)Acc No.[id number]:03/30/2025 Progress Notes Patient: ILENE SAAB Provider: CECE Almaraz :1975 A ge:49 Y S ex:Female Date:03/30/2025 Address:[address] [place] [address] , [id number] Pcp:Jordyn Rincon Subjective: * Chief Complaints: * [...] 8 5610 PROTHROMBIN TIME, Modifiers: QW , 07005 CAPILLARY BLOOD DRAW * Follow Up: 1 Week * Images: Billing Information: * Visit Code: 39403 Office Visit, Est Pt., Level 2. * Procedure Codes: 01971 PROTHROMBIN TIME. Modifiers: QW 36050 CAPILLARY BLOOD DRAW. * Electronic signature of CECE Dumont on 09/21/2025 at 11:13 PM EST Sign off status: Pending * Provider: CECE Almaraz Date: 0 03/30/2025 Generated for Segundo ng/Tressa/eTransmitting on: 1 11/21/2024 11:13 PM EST History and Physical Notes * HPI (History of Present Illness) Category Sub-Category Detail Notes Category Not es Hematology PT/INR due for PT/INR Examination Category Sub-Category Detail Notes Category Not es General Examination General Appearance: NAD , ap pears healthy , Color good
--- OUTSIDE RECORDS SUMMARY | 2025-04-06 05:30 | XMS_ITS ---
Author Organization [facility] Address [address] [facility] [address] [phone] Care Team Providers Care Damage Adjuster Name Role Phone Jordyn Rincon Primary Care Provider Daphne Raza Unavailable [phone] Allergies Allergen (clinical drug ingredient) Drug/Non Drug Allergy documented on EMR Reaction Allergy Type Onset Date Status Substance with penicillin structure and antibacterial mechanism of action (substance) Penicillins Unknown Drug Allergy Active Results Component Value Reference Range Notes PT/INR (in house) Reviewed date:04/07/2025 12:36:21 AM Interpretation:2.7 Performing Lab: Notes/Report: 2.7 PT 32.0 INR 2.7 current dose 2.5 mg Sat and 5mg AOD new dose same next check 2 weeks ideal INR 2-3 REASON FOR VISIT 1 week Medications Medication SIG (Take, Route, Frequency, Duration) Notes Start Date End Date Status Mirena (52 MG) 20 MCG/DAY as directed Intrauterine Active Irbesartan-hydroCHLOROthi azide 150-12.5 MG 1 tablet Orally Once a day Active Warfarin Sodium 5 MG 1 tablet Orally Onc e a day; Duration: 90 days Active Claritin 10 MG 1 tablet Orally Once a day Active Vital Signs Blood pressure systolic 122 mm Hg 04/06/20 25 Blood pressure diastolic 64 mm Hg 025 Heart Rate 75 /min 04/06/2025 Height 67 in 04/06/2025 Weight 293.4 lbs 04/06/2025 BMI 45.95 kg/m2 04/06/2025 Encounters Encounter Location Date Provider Diagnosis [facility] [address] [facility] [address] [place] [id number] 04/06/2025 Daphne Ry History of DVT (deep vein thrombosis) Z86.718 Assessments Encounter Date Diagnosis (ICD Code) Assessment Notes Treatment Notes Treatment Clinical Notes Section Notes 04/06/2025 History of DVT (deep vein thrombosis) (ICD-10 - Z86.718) Plan Of Treatment Next Appt Details Follow Up: 2 Weeks, Reason: Progress Notes * ILENE HENSONDOB:[birth year] (49 yo F)Acc No.[id number]:04/06/2025 Progress Notes Patient: ILENE SAAB Provider: CECE Almaraz :1975 A ge:49 Y S ex:Female Date:04/06/2025 Address:[address] [place] [address] , [place] [id number] Pcp:Jordyn Rincon Subjective: * Chief Complaints: * 1 . 1 week. * HPI: H ematology: 49 year old [...] P enicillins. Objective: * Vitals: W t: 293.4, Temp: 97.9, BP: 122/64, HR: 75, Nurse: maryann, Ht: 67, BMI:45.95. * Examination: G eneral Examination: General Appearance: N AD , appears healthy , Color good.? Assessment: * Assessment: 1. H istory of DVT (deep vein thrombosis) - Z86.718 Plan: * Treatment: Value Reference Range P T 32.0 * I NR 2.7 * c urrent dose 2.5 mg Sat and 5mg AOD * n ew dose same * n ext check 2 weeks * i deal INR 2-3 * Ryann Brandt 04/06/2025 10:2 6:28 AM > Provider reviewed results while patient in office. * Procedure Codes: 8 5610 PROTHROMBIN TIME, Modifiers: QW , 28918 CAPILLARY BLOOD DRAW, 1036F TOBACCO NON-USER, G8752 MOST RECENT SYSTOLIC BP < 140MM HG, G8754 MOST RECENT DIASTOLIC BP < 90MM HG * Follow Up: 2 Weeks * Images: Billing Information: * Visit Code: 88107 Office Visit, Est Pt., Level 2. * Procedure Codes: 35566 PROTHROMBIN TIME. Modifiers: QW 77419 CAPILLARY BLOOD DRAW. 1036F TOBACCO NON-USER. G8752 MOST RECENT SYSTOLIC BP < 140MM HG. G8754 MOST RECENT DIASTOLIC BP < 90MM HG. * Electronic signature of CECE Dumont on 09/21/2025 at 11:14 PM EST Sign off status: Pending * Provider: CECE Almaraz Date: 0 04/06/2025 Generated for Segundo roberts/Tressa/Angelismitting on: 1 11/21/2024 11:14 PM EST History and Physical Notes * HPI (History of Present Illness) Category Sub-Category Detail Notes Category Not es Hematology PT/INR due for PT/INR Examination Category Sub-Category Detail Notes Category Not es General Examination General Appearance: NAD , ap pears healthy , Color good
--- OUTSIDE RECORDS SUMMARY | 2025-04-20 05:15 | XMS_ITS ---
Author Organization [facility] Address [address] [place] [address] [phone] Care Team Providers Care Thermoforming Machine Operator Name Role Phone Jordyn Rincon Primary Care Provider Daphne Raza Unavailable [phone] Allergies Allergen (clinical drug ingredient) Drug/Non Drug [...] day; Duration: 90 days Active Vital Signs Blood pressure systolic 120 mm Hg 04/20/20 25 Blood pressure diastolic 90 mm Hg 025 Heart Rate 60 /min 04/20/2025 Height 67 in 04/20/2025 Weight 294.6 lbs 04/20/2025 BMI 46.14 kg/m2 04/20/2025 Encounters Encounter Location Date Provider Diagnosis [facility] [address] [facility] [address] [place] [id number] 04/20/2025 Daphne Ry History of DVT (deep vein thrombosis) Z86.718 Assessments Encounter Date Diagnosis (ICD Code) Assessment Notes Treatment Notes Treatment Clinical Notes Section Notes 04/20/2025 History of DVT (deep vein thrombosis) (ICD-10 - Z86.718) Plan Of Treatment Next Appt Details Follow Up: 2 Weeks, Reason: Progress Notes * ILENE HENSONDOB:[birth year] (49 yo F)Acc No.[id number]:04/20/2025 Progress Notes Patient: ILENE SAAB Provider: CECE Almaraz :1975 A ge:49 Y S ex:Female Date:04/20/2025 Address:[address] [place] [address] , [place] [id number] Pcp:Jordyn Rincon Subjective: * Chief Complaints: * [...] 8 5610 PROTHROMBIN TIME, Modifiers: QW , 68940 CAPILLARY BLOOD DRAW, 1036F TOBACCO NON-USER * Follow Up: 2 Weeks * Images: Billing Information: * Visit Code: 28854 Office Visit, Est Pt., Level 2. * Procedure Codes: 87872 PROTHROMBIN TIME. Modifiers: QW 80628 CAPILLARY BLOOD DRAW. 1036F TOBACCO NON-USER. * Electronic signature of CECE Dumont on 09/21/2025 at 11:13 PM EST Sign off status: Pending * Provider: CECE Almaraz Date: 0 04/20/2025 Generated for Segundo roberts/Tressa/eTransmitting on: 1 11/21/2024 11:13 PM EST History [...]
--- OUTSIDE RECORDS SUMMARY | 2025-05-04 04:00 | XMS_ITS ---
Author Organization [facility] Address [address] [facility] [address] [place] [phone] Care Team Providers Care Metalizing Machine Operator Automatic Name Role Phone Jordyn Rincon Primary Care Provider [phone] Daphne Raza Unavailable [phone] Allergies Allergen (clinical drug ingredient) Drug/Non Drug Allergy documented on EMR Reaction Allergy Type Onset Date Status Substance with penicillin structure and antibacterial mechanism of action (substance) Penicillins Unknown Drug Allergy Active Results Component Value Reference Range Notes PT/INR (in house) Reviewed date:05/04/2025 09:51:14 AM Interpretation: Performing Lab: Notes/Report: PT 40.4 INR 3.4 current dose 2.5mg Sat,5 mg oad new dose 2.5mg M,F and 5mg AOD next check 1 week ideal INR 2-3 REASON FOR VISIT 2 [...] 10 MG 1 tablet Orally Once a day; Duration: 90 days Active Problems Problem Type SNOMED Code ICD Code Onset Dates Problem Status W/U Status Risk Notes Problem Long-term current use of anticoagulant (026136017) Anticoagulant long-term use (Z79.01) Active confirmed Problem Seasonal allergic rhinitis (943302981) Other seasonal allergic rhinitis (J30.2) Active confirmed Vital Signs Blood pressure systolic 100 mm Hg 06/26/20 25 Blood pressure diastolic 70 mm Hg 025 Heart Rate 67 /min 05/04/2025 Height 67 in 05/04/2025 Weight 291.8 lbs 05/04/2025 BMI 45.7 kg/m2 05/04/2025 Encounters Encounter Location Date Provider Diagnosis [facility] [address] [place] [id number] 05/04/2025 Daphne Raza History of DVT (deep vein thrombosis) Z86.718 ; Anticoagulant long-term use Z79.01 and Other seasonal allergic rhinitis J30.2 Assessments Encounter Date Diagnosis (ICD Code) Assessment Notes Treatment Notes Treatment Clinical Notes Section Notes 05/04/2025 History of DVT (deep vein thrombosis) (ICD-10 - Z86.718) 05/04/2025 Anticoagulant long-term use (ICD-10 - Z79.01) Patient will have to remain on coumadin. Will order an mdINR machine so she can check her levels at home. 05/04/2025 Other seasonal allergic rhinitis (ICD-10 - J30.2) Plan Of Treatment Medication Medication Name Sig Start Date Stop Date Notes Claritin 10 MG 1 tablet Orally Once a day; Duration: 90 days Treatment Notes Assessment Notes Anticoagulant long-term use Patient will have to remain on coumadin. Will order an mdINR machine so she can check her levels at home. Next Appt Details Follow Up: 1 Week, Reason: Progress Notes * ILENE SPANNDOB:[birth year] (49 yo F)Acc No.[id number]:05/04/2025 Progress Notes Patient: ILENE SAAB Provider: CECE Almaraz :1975 A ge:49 Y S ex:Female Date:05/04/2025 Address:[address] [place] [address] , [facility] Pcp:Jordyn Rincon Subjective: * Chief Complaints: * 1 . 2 weeks. * HPI: H ematology: 49 year old female presents with c/o PT/INR d ue for PT/INR. Pt states she is taking Warfarin 2.5 mg on Saturday and 5 mg all other days. Pt states she is needing a refill for Claritin sent to [facility] in [place] for a 90 days supply. Denies : Bruising. D enies : Bleeding. [...] Objective: * Vitals: W t: 291.8, Temp: 98.0, BP: 100/70, HR: 67, Nurse: ELDA, Ht: 67, BMI:45.7. * Examination: G eneral Examination: General Appearance: N AD, appears healthy, Color good. Assessment: * Assessment: 1. H istory of DVT (deep vein thrombosis) - Z86.718 (Primary) 2 . A nticoagulant long-term use - Z79.01 3 . O ther seasonal allergic rhinitis - J30.2 ? Plan: * Treatment: Value Reference Range P T 40.4 * I NR 3.4 * c urrent dose 2.5mg Sat,5 mg oad * n ew dose 2.5mg M,F and 5mg AOD * n ext check 1 week * i deal INR 2-3 * Ca Gay 05/04/2025 09 :15:06 AM EDT > Provider reviewed results while patient in office.Daphne Raza 05/04/2025 09:51:12 AM EDT > 2.?Anticoagulant long-term use? Notes: Patient will have to remain on coumadin. Will order an mdINR machine so she can check her levels at home.??3.?Other seasonal allergic rhinitis? Refill Claritin Tablet, 10 MG, 1 tablet, Orally, Once a day, 90 days, 90 Tablet, Refills 3.? * Procedure Codes: 8 5610 PROTHROMBIN TIME, Modifiers: QW , 65340 CAPILLARY BLOOD DRAW * Follow Up: 1 Week * Images: Billing Information: * Visit Code: 54325 Office Visit, Est Pt., Level 3. * Procedure Codes: 68193 PROTHROMBIN TIME. Modifiers: QW 81156 CAPILLARY BLOOD DRAW. * Electronic signature of CECE Dumont on 09/21/2025 at 11:14 PM EST Sign off status: Pending * Provider: CECE Almaraz Date: 0 05/04/2025 Generated for Segundo roberts/Tressa/eTransmitting on: 1 11/21/2024 11:14 PM EST History and Physical Notes * HPI (History of Present Illness) Category Sub-Category Detail Notes Category Not es Hematology epistaxis hematuria Bruising Bleeding PT/INR due for PT/INR. Pt s tates she is taking Warfarin 2.5 mg on Thursday and 5 mg all other days. Pt states she is needing a refill for Claritin sent to [facility] in [place] for a 90 days supply Examination Category Sub-Category Detail Notes Category Not es General Examination General Appearance: NAD, reji ears healthy, Color good
--- OUTSIDE RECORDS SUMMARY | 2025-05-11 04:45 | XMS_ITS ---
Author Organization [facility] Address [address] [facility] 36 [facility] [address] [place] [phone] Care Team Providers Care Animal Taxonomist Name Role Phone Jordyn Rincon Primary Care Provider [phone] Daphne Raza Unavailable [phone] Allergies Allergen (clinical drug ingredient) Drug/Non Drug [...] Provider Diagnosis [facility] [address] [facility] [address] [place] [id number] 05/11/2025 Daphne Lozanojamar History of DVT (deep [...] * ILENE SPANNDOB:[birth year] (49 yo F)Acc No.[id number]:05/11/2025 Progress Notes Patient: VIET SAABNIFER Provider: CECE Almaraz :1975 A ge:49 Y S ex:Female Date:05/11/2025 Address:[address] [place], [place] [phone] Pcp:Jordyn Rincon Subjective: * Chief Complaints: * [...] 8 5610 PROTHROMBIN TIME, Modifiers: QW , 32251 CAPILLARY BLOOD DRAW, 1036F TOBACCO NON-USER, G8783 BP SCR PRFRM RCMDD DEFIND SCR INTVL, G8752 MOST RECENT SYSTOLIC BP < 140MM HG, G8754 MOST RECENT DIASTOLIC BP < 90MM HG * Follow Up: 2 Weeks * Images: Billing Information: * Visit Code: 11429 Office Visit, Est Pt., Level 2. * Procedure Codes: 68335 PROTHROMBIN TIME. Modifiers: QW 70787 CAPILLARY BLOOD DRAW. 1036F TOBACCO NON-USER. G8783 BP SCR PRFRM RCMDD DEFIND SCR INTVL. G8752 MOST RECENT SYSTOLIC BP < 140MM HG. G8754 MOST RECENT DIASTOLIC BP < 90MM HG. * Electronic signature of CECE Dumont on 09/21/2025 at 11:13 PM EST Sign off status: Pending * Provider: CECE Almaraz Date: 0 05/11/2025 Generated for Segundo roberts/Tressa/eTransmitting on: 1 11/21/2024 [...]
--- OUTSIDE RECORDS SUMMARY | 2025-05-25 05:00 | XMS_ITS ---
Author Organization [facility] Address [address] [place] [phone] Care Team Providers Care Tree Cutter Name Role Phone Jordyn Rincon Primary Care Provider [phone] Daphne Raza [phone] REASON FOR VISIT 2 week f/u Encounters Encounter Location Date Provider Diagnosis [facility] [address] [place] [phone] 05/25/2025 Daphne Raza Plan Of Treatment No Information Progress Notes * ILENE SPANNDOB:[birth year] (49 yo F)Acc No.[id number]:05/25/2025 Progress Notes Patient: Tyesha FLOWERSDANIELA ILENE Provider: CECE Almaraz :1975 A ge:49 Y S ex:Female Date:05/25/2025 Address:[address] [place], [place] [phone] Pcp:Jordyn Rincon Subjective: * Chief Complaints: * 1 . 2 week f/u. * Medical History: Objective: * Vitals: Assessment: Plan: * Treatment: * Images: Billing Information: * Visit Code: * Procedure Codes: * Electronic signature of CECE Dumont on 09/21/2025 at 11:14 PM EST Sign off status: Pending * Provider: CECE Almaraz Date: 0 05/25/2025 Generated for Printi ng/Faxing/eTransmitting on: 11/21/2024 11:14 PM EST
--- OUTSIDE RECORDS SUMMARY | 2025-06-24 05:00 | XMS_ITS ---
Author Organization [facility] Address 1210 [facility] 36 [facility] [address] [place], [place] [phone] Care Team Providers Care Mcat Instructor Name Role Phone Jordyn Rincon Primary Care Provider Ernie Fleming Unavailable [phone] Allergies Allergen (clinical drug ingredient) Drug/Non Drug [...] 06/24/2025 Encounters Encounter Location Date Provider Diagnosis [facility] [address] [facility] [address] [place] [phone] 06/24/2025 Ernie Fleming Allergic conjunctivi tis of [...] * ILENE HENSONDOB:[birth year] (49 yo F)Acc No.[id number]:06/24/2025 Progress Notes Patient: ILENE SAAB Provider: Amrita Fleming M.D. :1975 A ge:49 Y S ex:Female Date:06/24/2025 Address:[address] [place] [address] Pcp:Jordyn Rincon Subjective: * Chief Complaints: * [...] * Images: Billing Information: * Visit Code: 62985 Office Visit, Est Pt., Level 3. * Procedure Codes: * Electronic signature of Marquita Fleming MD on 09/21/2025 at 11:13 PM EST Sign off status: Pending * Provider: Amrita Fleming M.D. Date: 0 06/24/2025 Generated for Segundo roberts/Tressa/Kiran on: 11/21/2024 11:13 PM EST History and Physical [...]
--- OUTSIDE RECORDS SUMMARY | 2025-07-03 04:30 | XMS_ITS ---
Author Organization [facility] Address [address] [facility] [address] [place] [phone] Care Team Providers Care Power Equipment Technology Instructor Name Role Phone Jordyn Rincon Primary Care Provider Katiuska Sharpe Unavailable [phone] Allergies Allergen (clinical drug ingredient) Drug/Non Drug Allergy documented on EMR Reaction Allergy Type Onset Date Status Substance with penicillin structure and antibacterial mechanism of action (substance) Penicillins Unknown Drug Allergy Active Results Component Value Reference Range Notes CBC Venipuncture (in house) Reviewed date:07/17/2025 08:57:21 AM Interpretation: Performing Lab: Notes/Report: wbc 9.1 3.5 - 10 lymph 21.2 15 - 50 mid 5.9 2 - 15 gran 72.9 35 - 80 rbc 5.28 3.5 - 5.5 hgb 15.2 11.5 - 16.5 hct 45.5 35 - 55 mcv 86.1 75 - 100 mch 28.8 25 - 35 mchc 33.4 31 - 38 platlet 402 100 - 400 P-Comprehensive Metabolic Pa lili (CMP) Reviewed date:07/17/2025 08:58:38 AM Interpretation:Normal Performing Lab: Notes/Report: Test performed by [employer], [address] [place] [address] , [address], [place] [address] Luisito Torres MD, Machine Dyer CLIA: [id number] Sodium 139 135-145 mmol/L Potassium 4.2 3.5-5.3 mmol/L Chloride 101 97-108 mmol/L CO2 24 20-32 mmol/L Glucose 95 65-99 mg/dL BUN 11 6-20 mg/dL Creatinine 0.81 0.50-1.00 mg/dL Calcium 9.6 8.6-10.4 mg/dL eGFR by Creatinine 89 >59 mL/min/1.73m2 Protein 6.8 6.0-8.3 g/dL Albumin 4.3 3.5-5.3 g/dL Alkaline Phosphatase 92 35-121 IU/L ALT (SGPT) 14 <5-47 IU/L AST (SGOT) 17 <5-40 IU/L Bilirubin, Total 0.5 <0.2-1.2 mg/dL A/G Ratio 1.7 1.1-2.5 P-Lipid Panel Reviewed date:07/17/2025 08:58:20 AM Interpretation:LDL 147, HDL 45, TG 104 Performing Lab: Notes/Report: Test performed by [employer], [address] , [place] [address] Luisito Torres MD, Machine Dyer CLIA: [id number] Cholesterol 213 <200 mg/dL Triglycerides 104 <150 mg/dL HDL Cholesterol 45 >39 mg/dL Cholesterol / HDL Ratio 4.73 0.00-4.44 Ratio Non-HDL Cholesterol 168 <130 mg/dL LDL Cholesterol (Calculation) 147 <130 mg/dL LDL Cholesterol Levels* Less than 100 mg/dL Optimal 100 to 129 mg/dL Near Optimal/ Above Optimal 130 to 159 mg/dL Borderline High 160 to 189 mg/dL High 190 mg/dL and above Very High * Categories as recommended by the 2004 ATPIII guidelines LDL/HDL Ratio 3.3 <3.3 Ratio LDL Cholesterol Patient History Test Date: 01/02/2025 LDL Results: 115 Units: mg/dL % Change: - Test Date: 07/03/2025 LDL Results: 147 Units: mg/dL % Change: +27% REASON FOR VISIT 6 month f/u, due for Mammogram and Colon Cancer Screening Medications Medication SIG (Take, Route, Frequency, Duration) Notes Start Date End Date Status Azelastine HCl 0.05 % 1 drop into affect ed eye Ophthalmic Twice a day 06/24/2025 Active Warfarin Sodium 5 MG 1 tablet Orally Once a day Active Claritin 10 MG 1 tablet Orally Once a day Active Naltrexone-buPROPion HCl ER 8-90 MG 1 tab every AM x 1 week; then 1 tab AM and PM x 1 week; then 2 tab q AM and 1 in PM x 1 week; then 2 tab AM and PM thereafter Orally Once a day; Duration: 30 days 07/03/2025 Active Mirena (52 MG) 20 MCG/DAY as directed Intrauterine Active Irbesartan-hydroCHLOROthi azide 150-12.5 MG 1 tablet Orally Once a day Active Problems Problem Type SNOMED Code ICD Code Onset Dates Problem Status W/U Status Risk Notes Problem Body mass index 40+ - severely obese (489580680) Adult BMI 45.0-49.9 kg/sq m (Z68.42) Active confirmed Problem Mixed anxiety and depressive disorder (676625470) Depression with anxiety (F41.8) Active confirmed Vital Signs Blood pressure systolic 128 mm Hg 07/03/20 25 Blood pressure diastolic 78 mm Hg 025 Heart Rate 60 /min 07/03/2025 Height 67 in 07/03/2025 Weight 291 lbs 07/03/2025 BMI 45.57 kg/m2 07/03/2025 Encounters Encounter Location Date Provider Diagnosis Vijaya [address] [facility] [address] [place] [id number] 07/03/2025 Katiuska Sharpe History of DVT (deep vein thrombosis) Z86.718 ; 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 Bernal 07/03/2025 Anticoagulant long-term use (ICD-10 - Z79.01) she continues [facility] INR home monitoring weekly as is required by the [employer] 07/03/2025 Lipid screening (ICD-10 - Z13.220) 07/03/2025 Environmental allergies (ICD-10 - Z91.048) 07/03/2025 Adult BMI 45.0-49.9 kg/sq m (ICD-10 - Z68.42) Will try Contrave for weight loss if approved by insurance; discussed caloric and portion sizes and exercises along with meal frequency 07/03/2025 Depression with anxiety (ICD-10 - F41.8) If Contrave not covered will start Zoloft 07/03/2025 HTN (hypertension) (ICD-10 - I10) 07/03/2025 Other she will schedule her Mammogram; she will consider cologuard Plan Of Treatment Medication Medication Name Sig Start Date Stop Date Notes Azelastine HCl 0.05 % 1 drop into affect ed eye Ophthalmic Twice a day 06/24/2025 Warfarin Sodium 5 MG 1 tablet Orally Once a day Claritin 10 MG 1 tablet Orally Once a day Naltrexone-buPROPion HCl ER 8-90 MG 1 tab every AM x 1 week; then 1 tab AM and PM x 1 week; then 2 tab q AM and 1 in PM x 1 week; then 2 tab AM and PM thereafter Orally Once a day; Duration: 30 days 07/03/2025 Irbesartan-hydroCHLOROthiazi d e 150-12.5 MG 1 tablet Orally Once a day Treatment Notes Assessment Notes Heterozygous for prothrombin [id number] mutation she continue to follow with Dr. Bernal Anticoagulant long-term use she continue s [facility] INR home monitoring weekly as is required by the machine company Adult BMI 45.0-49.9 kg/sq m Will try Con trave for weight loss if approved by insurance; discussed caloric and portion sizes and exercises along with meal frequency Depression with anxiety If Contrave not covered will start Zoloft Other she will schedule he r Mammogram; she will consider cologuard Next Appt Details Follow Up: 6 Months,and prn, Reason: Progress Notes * ILENE SPANNDOB:[birth year] (49 yo F)Acc No.[id number]:07/03/2025 Progress Notes Patient: ILENE SAAB Provider: LAKHWINDER Bradford :1975 A ge:49 Y S ex:Female Date:07/03/2025 Address:[address] [place] [address] Pcp:Jordyn Rincon Subjective: * Chief Complaints: * 1 . 6 month f/u. 2. due for Mammogram and Colon Cancer Screening. * HPI: H PI: Dr. Bernal note reviewed. Patient is here today for 6 month f/u. Pt states he is doing well and has no new concerns today. Pt is fasting. 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 c/o stress a t work, at home, in the family. c/o weight gain. c/o feeling overwhelmed a t work, at home. * ROS: D ERMATOLOGY: no R lupe. [...] Travel ouside [place]: no. * Medications: T shireeng Mirena (52 MG) 20 MCG/DAY Intrauterine Device as directed Intrauterine , Taking Irbesartan-hydroCHLOROthiazide 150-12.5 MG Tablet 1 tablet Orally Once a day , Taking Warfarin Sodium 5 MG Tablet 1 tablet Orally Once a day , Taking Claritin 10 MG Tablet 1 tablet Orally Once a day , Taking Azelastine HCl 0.05 % Solution 1 drop into affected eye Ophthalmic Twice a day , Medication List reviewed and reconciled with the patient * Allergies: P enicillins. Objective: * Vitals: W t: 291, Temp: 97.7, BP: 128/78, HR: 60, Nurse: pe, Ht: 67, BMI:45.57. * Examination: G eneral Examination: General Appearance: N AD, alert, pleasant. H EENT: s clera and conjunctiva clear, PERRLA, TM's normal, translucent. O ral cavity: m ucosa moist and WNL; clear OP area. N jose: s upple, no lymphadenopathy. H eart: R RR, no ectopics. L ungs: C TAB A&P. N eurologic Exam: a lert and oriented. E xtremities:?no leg edema. P sychology: Grooming : g ood. E ye contact : randi barr. M ood : d epressed, tearful. Assessment: * Assessment: 1. H istory of DVT (deep vein thrombosis) - Z86.718 (Primary) 2 . H eterozygous for prothrombin [id number] mutation - D68.52 3 . A nticoagulant long-term use - Z79.01 4 . L ipid screening - Z13.220 5 . E nvironmental allergies - Z91.048 6 . A dult BMI 45.0-49.9 kg/sq m - Z68.42 7 .?Depression with anxiety - F41.8 8 . H TN (hypertension) - I10 ? Plan: * Treatment: Value Reference Range w bc 9.1 3.5 - 10 * l ymph 21.2 15 - 50 * m id 5.9 2 - 15 * g ran 72.9 35 - 80 * r bc 5.28 3.5 - 5.5 * h gb 15.2 11.5 - 16.5 * h ct 45.5 35 - 55 * m cv 86.1 75 - 100 * m ch 28.8 25 - 35 * m chc 33.4 31 - 38 * p latlet 402 100 - 400 * Remedios Abreu 07/03/2025 0 1:05:03 PM EDT >Katiuska Sharpe 07/17/2025 08:40:44 AM EDT >see encounter 2.?Heterozygous for prothrombin I82744R mutation?LAB: P-Comprehensive Metabolic Panel (CMP) (Collection Date & Time - 07/03/2025 09:03 AM)?Normal* Value Reference Range A /G Ratio 1.7 1.1-2.5 - * A lbumin 4.3 3.5-5.3 - g/dL * A lkaline Phosphatase 92 35-121 - IU/L * A LT (SGPT) 14 <5-47 - IU/L * A ST (SGOT) 17 <5-40 - IU/L * B ilirubin, Total 0.5 <0.2-1.2 - mg/dL * B UN 11 6-20 - mg/dL * C alcium 9.6 8.6-10.4 - mg/dL * C hloride 101 97-108 - mmol/L * C O2 24 20-32 - mmol/L * C reatinine 0.81 0.50-1.00 - mg/dL * G lucose 95 65-99 - mg/dL * P otassium 4.2 3.5-5.3 - mmol/L * S odium 139 135-145 - mmol/L * P rotein 6.8 6.0-8.3 - g/dL * e GFR by Creatinine 89 >59 - mL/min/1.73m2 * Katiuska Sharpe 07/17/2025 08:58:29 AM EDT >see encounter Notes: she continue to follow with Dr. Bernal??3.?Anticoagulant long-term use? Continue Warfarin Sodium Tablet, 5 MG, 1 tablet, Orally, Once a day.?? Notes: she continues [facility] INR home monitoring weekly as is required by the machine company? 4.?Lipid screening?LAB: P-Lipid Panel (Collection Date & Time - 07/03/2025 09:03 AM)?LDL 147, HDL 45, TG 104* Value Reference Range C holesterol / HDL Ratio 4.73 H 0.00-4.44 - Ratio * C holesterol 213 H <200 - mg/dL * H DL Cholesterol 45 >39 - mg/dL * L DL Cholesterol (Calculation) 147 H <130 - mg/d L * L DL/HDL Ratio 3.3 H <3.3 - Ratio * N on-HDL Cholesterol 168 H <130 - mg/dL * T riglycerides 104 <150 - mg/dL * Katiuska Sharpe 07/06/2025 10:07:30 AM EDT >no answer when Katiuska Melendez 07/07/2025 04:02:49 PM EDT >no answer when Katiuska Melendez 07/11/2025 08:52:34 AM EDT >no answer when Katiuska Melendez 07/17/2025 08:57:59 AM EDT >see encounter 5.?Environmental allergies? Continue Claritin Tablet, 10 MG, 1 tablet, Orally, Once a day;?Continue Azelastine HCl Solution, 0.05 %, 1 drop into affected eye, Ophthalmic, Twice a day.??6.?Adult BMI 45.0-49.9 kg/sq m? Start Naltrexone-buPROPion HCl ER Tablet Extended Release 12 Hour, 8-90 MG, 1 tab every AM x 1 week; then 1 tab AM and PM x 1 week; then 2 tab q AM and 1 in PM x 1 week; then 2 tab AM and PM thereafter, Orally, Once a day, 30 days, 30, Refills 1.?? Notes: Will try Contrave for weight loss if approved by insurance; discussed caloric and portion sizes and exercises along with meal frequency??7.?Depression with anxiety? Notes: If Contrave not covered will start Zoloft??8.?HTN (hypertension)? Continue Irbesartan-hydroCHLOROthiazide Tablet, 150-12.5 MG, 1 tablet, Orally, Once a day.? 9.?Others? Notes: she will schedule her Mammogram; she will consider cologuard?? * Procedure Codes: 8 5025 CBC WITH AUTO DIFF, 43640 VENIPUNCT, ROUTINE*, 1036F TOBACCO NON-USER, 3074F SYST BP LT 130 MM HG, 3078F DIAST BP < 80 MM HG * Follow Up: 6 Months,and prn * Images: Billing Information: * Visit Code: 61230 Office Visit, Est Pt., Level 4. * Procedure Codes: 51617 CBC WITH AUTO DIFF. 74955 VENIPUNCT, ROUTINE*. 1036F TOBACCO NON-USER. 3074F SYST BP LT 130 MM HG. 3078F DIAST BP < 80 MM HG. * Electronic signature of Ny Sharpe APRN on 09/21/2025 at 11:14 PM EST Sign off status: Pending * Provider: LAKHWINDER Bradford Date: 0 07/03/2025 Generated for Segundo roberts/Tressa/Jluisitting on: 1 11/21/2024 11:14 PM EST History and Physical Notes * HPI (History of Present Illness) Category Sub-Category Detail Notes Category Not es Psychology weight gain stress at work, at home, in the family feeling overwhelmed at work, at home HPI Patient is here today for 6 brock h f/u. Pt states he is doing well and has no new concerns today. Pt is fasting Examination Category Sub-Category Detail Notes Category Not es General Examination HEENT: sclera and c onjunctiva clear, PERRLA, TM's normal, translucent Heart: RRR, no ectopics Lungs: CTAB A&P Extremities: no leg edema General Appearance: NAD, alert, pleasant Neurologic Exam: alert and oriented Neck: supple, no lymphaden opathy Oral cavity: mucosa moist and WNL ; clear OP area Psychology Grooming : good Eye contact : normal Mood : depressed, tearful
--- OUTSIDE RECORDS SUMMARY | 2025-07-24 10:05 | XMS_ITS ---
Author Organization [facility] Address [address] [facility] 36 [facility] [address] [place] [id number] Care Team Providers Care Anchorer Name Role Phone Jordyn Rincon Primary Care Provider [phone] Results Component Value Reference Range Notes Mammogram Reviewed date:08/24/2025 04:57:10 PM Interpretation:Negative Performing Lab: Notes/Report: Negative REASON FOR VISIT due mignon, col Encounters Encounter Location Date Provider Diagnosis [facility] [address] [facility] 36 [facility] [address] [place] [id number] 07/24/2025 Jordyn Rincon Colon cancer screening Z12.11 and Breast cancer screening Z12.31 Assessments Encounter Date Diagnosis (ICD Code) Assessment Notes Treatment Notes Treatment Clinical Notes Section Notes 07/24/2025 Colon cancer screening (ICD-10 - Z12.11) 07/24/2025 Breast cancer screening (ICD-10 - Z12.31) Plan Of Treatment Pending Test Test Name Order Date Cologuard 07/24/2025 Progress Notes * ILENE SPANNDOB:[birth year] (49 yo F)Acc No.[id number]:07/24/2025 Patient: ILENE SAAB :1975 A ge:49 Y S ex:Female Address:[address] [place] [address] Subjective: * Chief Complaints: * D ue mignon, col * Medical History: * Surgical History: * Hospitalization/Major Diagno stic Procedure: * Medications: Objective: * Vitals: * Physical Examination: Assessment: * Assessment: 1. C olon cancer screening - Z12.11 (Primary) 2 . B reast cancer screening - Z12.31 Plan: * Treatment: 2.?Breast cancer screening?Imaging: Mammogram* Andria Aviles 07/28/2025 02:3 3:00 PM EDT >sent to [facility] for referral to [facility] * Procedure Codes: * true * Date: Generated for Segundo roberts/Tressa/Angelismitting on: 11/21/2024 11:13 PM EST
--- NOTE | 2025-09-21 22:56 | ECG_ITS ---
APPROVED REPORT Exam: Resting ECG HR:70 bpm ECG Measurements Heart Rate 70 AXES WI 173 P 43 QRSd 98 QRS 78 QT 401 T 17 QTc 422 Conclusion Normal sinus rhythm without acute ST or T wave changes concerning for ischemia Electronically signed by : Asia Tillman, 09/25/2025 00:36:36
[2025-09-21 23:04] VITALS: BP 145/68; PULSE 66; RESP 18; TEMP 37; O2SAT 98; BMI 42.5
--- NOTE | 2025-09-21 23:05 | XR_ITS ---
PROCEDURE INFORMATION: Exam: XR Chest Exam date and time: 09/21/2025 11:54 PM Age: 49 years old Clinical indication: Pain; Chest pressure; Additional info: Cp TECHNIQUE: Imaging protocol: Radiologic exam of the chest. Views: 1 view. Total images: 1 COMPARISON: CT ANGIO CHEST PE PROTOCOL 05/23/2024 5:54 PM FINDINGS: Tubes, catheters and devices: EKG leads are present. Lungs: Scattered bilateral calcified pulmonary granuloma. No consolidation. No pulmonary vascular congestion or edema. Pleural spaces: Unremarkable. No pleural effusion. No pneumothorax. Heart/Mediastinum: Calcified mediastinal and hilar lymph nodes. No cardiomegaly. No mediastinal widening or hilar enlargement. Bones/joints: Mild degenerative changes thoracic spine. Stable chest wall structures. Soft tissues: Breast attenuation artifact. IMPRESSION: 1. No radiographically acute cardiopulmonary process. 2. Remote calcified granulomatous disease.
--- NOTE | 2025-09-21 23:07 | CT_ITS ---
PROCEDURE INFORMATION: Exam: CTA Chest With Contrast Exam date and time: 09/22/2025 12:06 AM Age: 49 years old Clinical indication: Pain; Chest pressure; Additional info: Inspiratory cp, HX clots on warfarin TECHNIQUE: Imaging protocol: Computed tomographic angiography of the chest with contrast. Exam focused on the arteries. 3D rendering (Not supervised by radiologist): MIP and/or 3D reconstructed images were created by the technologist. Total images: 911 Radiation optimization: All CT scans at this facility use at least one of these dose optimization techniques: automated exposure control; mA and/or kV adjustment per patient size (includes targeted exams where dose is matched to clinical indication); or iterative reconstruction. Contrast material: ISOVUE; Contrast volume: 70 ml; Contrast route: INTRAVENOUS (IV); COMPARISON: CT ANGIO CHEST PE PROTOCOL 05/23/2024 5:54 PM FINDINGS: Pulmonary arteries: Adequate contrast opacification of the pulmonary arteries. No main or saddle pulmonary emboli. No convincing evidence for lobar or proximal segmental emboli. Mild limitations imposed by attenuation and motion artifact. Multiple segmental and subsegmental vessels show heterogeneous attenuation likely artifactual. Aorta: No thoracic aortic aneurysm or dissection. Lungs: The trachea and main bronchi are patent. Scattered bilateral calcified pulmonary granuloma. No acute infiltrate or airspace consolidation. Pleural spaces: Unremarkable. No pneumothorax. No pleural effusion. Heart: Normal heart size. No pericardial effusion. Trace fluid in the superior pericardial recess. Mediastinal space: No mediastinal mass or hematoma. Lymph nodes: Calcified mediastinal and hilar lymph nodes. No lymphadenopathy. Diaphragm: Tiny hiatal hernia. Spleen: Calcified splenic granuloma. Intraperitoneal space: Partially visualized mesenteric panniculitis. Bones/joints: Mild degenerative changes throughout the thoracic spine. No acute osseous abnormality. Soft tissues: Unremarkable. IMPRESSION: 1. No acute intrathoracic process. Specifically, no evidence for acute pulmonary emboli, allowing for attenuation artifacts. 2. Clear lungs. 3. Remote calcified granulomatous disease. 4. Partially visualized mesenteric panniculitis.
[2025-09-21 23:12] LABS: Hematocrit 42.1 % (37.0-47.0); Hemoglobin 13.9 g/dL (12.2-16.2); Immature Granulocytes % 0.2 %; Mean Corpuscular HGB Conc 33.0 g/dL (31.8-35.4); Mean Corpuscular Hemoglobin 28.7 pg (27.0-31.2); Mean Corpuscular Volume 87.0 fl (81-99); Nucleated Red Blood Cells % 0 %; Platelet Count 380 K/mm3 (142-424); Red Blood Count 4.84 M/mm3 (4.20-5.40); Red Cell Distribution Width-SD 42.2 fL; White Blood Count 11.6 K/mm3 (4.8-10.8)
--- OUTSIDE RECORDS SUMMARY | 2025-09-21 23:13 | XMS_ITS | Patient Health Record ---
[facility] [address] [facility] [address] [id number] Care Team Providers Care Windows Vmware Engineer Name Role Phone Jordyn Rincon Primary Care Provider Salvatore Babb Unavailable [phone] Ernie Fleming Unavailable [phone] Katiuska Sharpe Unavailable [phone] Daphne Raza Unavailable [phone] Allergies Allergen (clinical drug ingredient) Drug/Non Drug Allergy documented on EMR Reaction Allergy Type Onset Date Status Substance with penicillin structure and antibacterial mechanism of action (substance) Penicillins Unknown Drug Allergy Active Results Component Value Reference Range Notes PT/INR Reviewed date:08/24/2025 04:55:17 PM Interpretation:2.5 Performing Lab: Notes/Report: 2.5 INR 2.5 current dose 2.5 mg MF and 5 [...] next check 4 weeks ideal INR 2-3 Mammogram Reviewed date:08/24/2025 04:57:10 PM Interpretation:Negative Performing Lab: Notes/Report: Negative PT/INR (in house) Reviewed date:02/16/2025 09:28:10 AM Interpretation:2.7 Performing Lab: Notes/Report: 2.7 PT 32.8 INR 2.7 current dose 2.5 Tu,Sat-5mg aod new dose same next check 2 weeks ideal INR 2-3 Urinalysis - Inhouse Reviewed date:01/24/2025 05:34:46 PM Interpretation: Performing Lab: Notes/Report: Color/Clarity yellow Leuk neg Nitrite neg Urobili 3.2 Protein neg pH 6.0 Blood 2+ Sp. Gr. 1.025 Ketone neg Bili neg Gluc neg CBC Fingerstick (in house) Reviewed date:01/24/2025 05:34:46 [...] - 38 plat 431 100 - 400 P-Comprehensive Metabolic Pa lili (CMP) Reviewed date:01/24/2025 05:34:46 PM Interpretation:Normal Performing Lab: Notes/Report: Test performed by [facility] [address] [place] [address] , [address], [place] [address] Luisito Torres MD, Business Office Technology Instructor CLIA: [id number] Sodium 138 135-145 mmol/L Potassium 4.4 3.5-5.3 [...] 0.5 <0.2-1.2 mg/dL A/G Ratio 1.8 1.1-2.5 PT/INR (in house) Reviewed date:05/11/2025 04:55:02 PM Interpretation:2.5 Performing Lab: Notes/Report: 2.5 PT 30.0 INR 2.5 current dose 2.5mg m/f and 5mg aod new dose same next check 2 weeks ideal INR 2-3 PT/INR (in house) Reviewed date:05/04/2025 09:51:14 AM [...] ideal INR 2-3 PT/INR (in house) Reviewed date:04/07/2025 12:36:21 AM Interpretation:2.7 Performing Lab: Notes/Report: 2.7 PT 32.0 INR 2.7 current dose 2.5 mg Sat and 5mg AOD new dose same next check 2 weeks ideal INR 2-3 PT/INR (in house) Reviewed date:03/30/2025 12:15:03 PM [...] Interpretation:Normal Performing Lab: Notes/Report: Test performed by [facility] [address] [place] [address] , [address], [place] [address] Luisito Torres MD, Business Office Technology Instructor CLIA: [id number] Vitamin B12 [phone] pg/mL P-Comprehensive Metabolic Pa lili (CMP) Reviewed date:03/16/2025 01:30:54 PM Interpretation:Normal Performing Lab: Notes/Report: Test performed by [facility] [address] [place] [address] , [address], [place] [address] Luisito Torres MD, Business Office Technology Instructor CLIA: [id number] Sodium 139 135-145 mmol/L Potassium 4.5 3.5-5.3 [...] Interpretation:Normal Performing Lab: Notes/Report: Test performed by [facility] [address] [place] [address] , [address], [place] [address] Luisito Torres MD, Business Office Technology Instructor CLIA: [id number] TSH reflex to FT4 2.61 0.43-5.25 mU/L PT/INR (in house) Reviewed date:02/09/2025 10:03:15 AM Interpretation: Performing Lab: Notes/Report: PT 39.8 INR 2.9 current dose 2.5 T,Sat and 5mg AOD new dose same next check 1 week PT/INR (in house) Reviewed date:02/03/2025 01:50:18 PM Interpretation:3.2 Performing Lab: Notes/Report: 3.2 PT 37.8 INR 3.2 current dose 5mg daily new dose 2.5mg T, Sat and 5mg AOD next check 1 week CBC Venipuncture (in house) Reviewed date:01/02/2025 12:49:28 [...] Interpretation:Normal Performing Lab: Notes/Report: Test performed by [facility] [address] [place] [address] , [address], [place] [address] Luisito Torres MD, Business Office Technology Instructor CLIA: [id number] Sodium 140 135-145 mmol/L Potassium 4.2 3.5-5.3 [...] 134 Performing Lab: Notes/Report: Test performed by [facility] [address] , [place] [address] Luisito Torres MD, Business Office Technology Instructor CLIA: [id number] Cholesterol 181 <200 mg/dL Triglycerides 93 <150 [...] 115 Units: mg/dL % Change: - PT/INR Reviewed date:09/07/2025 11:39:06 AM Interpretation: Performing Lab: Notes/Report: INR 2.6 current dose 2.5 mg MF and 5 mg AOD new dose same ideal INR 2-3 PT/INR (in house) Reviewed date:01/26/2025 03:04:57 PM Interpretation: Performing Lab: Notes/Report: PT 12.8 INR 1.1 current dose new start new dose 5mg qd next check 1 week CBC Venipuncture (in [...] Interpretation:Normal Performing Lab: Notes/Report: Test performed by [facility] [address] [place] [address] , [address], [place] [address] Luisito Torres MD, Business Office Technology Instructor CLIA: [id number] Sodium 139 135-145 mmol/L Potassium 4.2 3.5-5.3 [...] 104 Performing Lab: Notes/Report: Test performed by [facility] [address] [facility] , [address], [place] [address] Luisito Torres MD, Business Office Technology Instructor CLIA: [id number] Cholesterol 213 <200 mg/dL Triglycerides 104 <150 [...] 147 Units: mg/dL % Change: +27% PT/INR Reviewed date:06/07/2025 01:44:54 PM Interpretation:2.9 Performing Lab: Notes/Report: 2.9 INR 2.9 current dose 2.5 mg MF and 5 mg AOD new dose same next check 2 weeks ideal INR 2-3 PT/INR Reviewed date:06/01/2025 12:28:44 PM Interpretation:3.0 Performing Lab: Notes/Report: 3.0 INR 3.0 current dose 2.5 mg MF and 5 mg AOD next check 1 week ideal INR 2-3 Medications Medication SIG (Take, [...] Vaccine Route Administration Date Status Comme nts Tetanus Tdap-Adacel (over 7yrs) Unknown 07/06/2021 Admi nistered Hepatitis A (adult) Unknown 09/14/2018 Administered Hepatitis A (adult) Unknown 04/04/2019 Administered Fluzone PF Quad (6-35 months) Unknown 09/14/2018 Admini stered Fluzone PF Quad (6-35 months) Unknown 08/12/2021 Admini stered COVID 19 Moderna Unknown 02/05/2021 Administered COVID 19 Moderna Unknown 03/08/2021 Administered COVID 19 Moderna Unknown 09/27/2021 Administered Problems Problem Type SNOMED Code ICD Code Onset Dates Problem Status W/U Status Risk Notes Problem Hypertension (67142774) HTN (hypertension) (I10) Active confirmed Problem History of DVT (deep vein thrombosis) (927301625) History of DVT (deep vein thrombosis) (Z86.718) Active confirmed Problem Seasonal allergy (325579805) Seasonal allergies (J30.2) Active confirmed Problem Environmental allergy (013973691) Environmental allergies (Z91.048) Active confirmed Problem Paresthesia (82420565) Paresthesia (R20.2) Active confirmed Problem Mixed anxiety and depressive disorder (964608445) Depression with anxiety (F41.8) Active confirmed Problem Seasonal allergic rhinitis (132107734) Other seasonal allergic rhinitis (J30.2) Active confirmed Problem Thyroid nodule (584452018) Thyroid nodule (E04.1) Active confirmed Problem Morbid obesity (024173952) Obesity, Class III, BMI 40-49.9 (morbid obesity) (E66.01) Active confirmed Problem Long-term current use of anticoagulant (683131130) Anticoagulant long-term use (Z79.01) Active confirmed Problem Posterior rhinorrhea (03357712) PND (post-nasal drip) (R09.82) Active confirmed Problem Acute upper respiratory infection (08372389) Upper respiratory infection with cough and congestion (J06.9) Active confirmed Problem Body mass index 40+ - severely obese (034166308) Adult BMI 45.0-49.9 kg/sq m (Z68.42) Active confirmed Problem 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 Vital Signs Heart Rate 60 /min 07/03/2025 Blood pressure diastolic 78 mm Hg 07/03/2025 Height 67 in 07/03/2025 Blood pressure systolic 128 mm Hg 07/03/2025 Weight 291 lbs 07/03/2025 BMI 45.57 kg/m2 07/03/2025 Encounters Encounter [facility] Date [facility] [address] [place] [id number] 01/02/2025 Katiuska Sharpe Diabetes mellitus screening Z13.1 ; HTN (hypertension) I10 ; URI (upper respiratory infection) J06.9 ; Head congestion R09.81 ; Lipid screening Z13.220 and Obesity, Class III, BMI 40-49.9 (morbid obesity) E66.01 [facility] [address] [place] [id number] 01/23/2025 R Barry Babb HTN (hypertension) I 10 [facility] [address] [place] [id number] 01/26/2025 R Barry Babb History of DVT (deep vein thrombosis) Z86.718 ; Heterozygous for prothrombin [id number] mutation D68.52 and Seasonal allergies J30.2 [facility] [address] [place] [id number] 02/03/2025 Daphne Crowdy History of DVT (deep vein thrombosis) Z86.718 and Heterozygous for prothrombin [id number] mutation D68.52 [facility] [address] [place] [id number] 02/09/2025 Daphne Crowdy History of DVT (deep vein thrombosis) Z86.718 and Heterozygous for prothrombin U18158I mutation D68.52 [facility] [address] [place] [id number] 02/16/2025 Daphne Crowdy History of DVT (deep vein thrombosis) Z86.718 and Heterozygous for prothrombin [id number] mutation D68.52 [facility] [address] [place] [id number] 03/02/2025 Daphne Crowdy History of DVT (deep vein thrombosis) Z86.718 ; Paresthesia R20.2 and Persistent cough R05.3 [facility] [address] [place] [id number] 03/30/2025 Daphne Crowdy History of DVT (deep vein thrombosis) Z86.718 [facility] [address] [facility] [address] [place], [place] [id number] 04/06/2025 Daphne Crowdy History of DVT (deep vein thrombosis) Z86.718 [facility] [address] [place], [place] [id number] 04/20/2025 Daphne Crowdy History of DVT (deep vein thrombosis) Z86.718 [facility] [address] [place], [place] [id number] 05/04/2025 Daphne Crowdy History of DVT (deep vein thrombosis) Z86.718 ; Anticoagulant long-term use Z79.01 and Other seasonal allergic rhinitis J30.2 [facility] [address] [place], [place] [id number] 05/11/2025 Daphne Crowdy History of DVT (deep vein thrombosis) Z86.718 and Anticoagulant long-term use Z79.01 [facility] [address] [place], [place] [id number] 06/24/2025 Ernie Milford Allergic conjunctivi tis of right eye H10.11 [facility] [address] [place], [place] [id number] 07/03/2025 Katiuska Sharpe History of DVT (deep vein thrombosis) Z86.718 ; Heterozygous for prothrombin [id number] mutation D68.52 ; Anticoagulant long-term use Z79.01 ; Lipid screening Z13.220 ; Environmental allergies Z91.048 ; Adult BMI 45.0-49.9 kg/sq m Z68.42 ; Depression with anxiety F41.8 and HTN (hypertension) I10 [facility] [address] [facility] [address] [place] [id number] 01/24/2025 Jordyn Rincon [facility] [address] [place], [place] [id number] 04/16/2025 Jordyn Rincon [facility] [address] [place], [place] [id number] 05/01/2025 Jordyn Rincon [facility] [address] [place], [place] [id number] 05/09/2025 Jordyn Rincon [facility] [address] [place], [place] [id number] 05/23/2025 Jordyn Rincon [facility] [address] [place], [place] [id number] 07/03/2025 Jordyn Rincon [facility] [address] [place], [place] [id number] 07/17/2025 Katiuska Sharpe [facility] [address] [place], [place] [id number] 07/24/2025 Jordyn Rincon Colon cancer screeni ng Z12.11 and Breast cancer screening Z12.31 [facility] [address] [facility] [address] [place], [place] [id number] 07/27/2025 Daphne Raza Assessments Encounter Date Diagnosis (ICD Code) Assessment Notes Treatment Notes Treatment Clinical Notes Section Notes 04/06/2025 History of DVT (deep vein thrombosis) (ICD-10 - Z86.718) 03/02/2025 History of DVT (deep vein thrombosis) (ICD-10 - Z86.718) 03/02/2025 Paresthesia (ICD-10 - R20.2) 07/24/2025 Colon cancer screening (ICD-10 - Z12.11) 07/24/2025 Breast cancer screening (ICD-10 - Z12.31) 06/24/2025 Allergic conjunctivitis of right eye (ICD-10 - H10.11) 05/04/2025 History of DVT (deep vein thrombosis) (ICD-10 - Z86.718) 05/04/2025 Anticoagulant long-term use (ICD-10 - Z79.01) Patient will have to remain on coumadin. Will order an mdINR machine so she can check her levels at home. 02/09/2025 History of DVT (deep vein thrombosis) (ICD-10 - Z86.718) 02/09/2025 Heterozygous for prothrombin [id number] mutation (ICD-10 - D68.52) 05/11/2025 History of DVT (deep vein thrombosis) (ICD-10 - Z86.718) 07/03/2025 History of DVT (deep vein thrombosis) (ICD-10 - Z86.718) 07/03/2025 Heterozygous for prothrombin E12648S mutation (ICD-10 - D68.52) she continue to follow with Dr. Bernal 04/20/2025 History of DVT (deep vein thrombosis) (ICD-10 - Z86.718) 02/03/2025 History of DVT (deep vein thrombosis) (ICD-10 - Z86.718) 02/03/2025 Heterozygous for prothrombin N39070T mutation (ICD-10 - D68.52) 01/26/2025 History of DVT (deep vein thrombosis) (ICD-10 - Z86.718) 03/30/2025 History of DVT (deep vein thrombosis) (ICD-10 - Z86.718) 02/16/2025 History of DVT (deep vein thrombosis) (ICD-10 - Z86.718) 02/16/2025 Heterozygous for prothrombin [id number] mutation (ICD-10 - D68.52) 01/02/2025 HTN (hypertension) (ICD-10 - I10) 01/02/2025 Diabetes mellitus screening (ICD-10 - Z13.1) 01/26/2025 Heterozygous for prothrombin Q00591U mutation (ICD-10 - D68.52) 01/23/2025 HTN (hypertension) (ICD-10 - I10) 01/02/2025 URI (upper respiratory infection) (ICD-10 - J06.9) fluids, rest, supportive measures for fever/symptom relief 01/26/2025 Seasonal allergies (ICD-10 - J30.2) OTC antihistamine of choice 07/03/2025 Anticoagulant long-term use (ICD-10 - Z79.01) she continues [facility] INR home monitoring weekly as is required by the machine company 05/11/2025 Anticoagulant long-term use (ICD-10 - Z79.01) Patient will have to remain on coumadin. Will order an mdINR machine so she can check her levels at home. 05/04/2025 Other seasonal allergic rhinitis (ICD-10 - J30.2) 03/02/2025 Persistent cough (ICD-10 - R05.3) Will start on flonase and antihistamine OTC. 07/03/2025 Lipid screening (ICD-10 - Z13.220) 01/02/2025 Head congestion (ICD-10 - R09.81) fluids, rest, supportive measures for fever/symptom relief 01/02/2025 Lipid screening (ICD-10 - Z13.220) 07/03/2025 Environmental allergies (ICD-10 - Z91.048) 07/03/2025 Adult BMI 45.0-49.9 kg/sq m (ICD-10 - Z68.42) Will try Contrave for weight loss if approved by insurance; discussed caloric and portion sizes and exercises along with meal frequency 01/02/2025 Obesity, Class III, BMI 40-49.9 (morbid obesity) (ICD-10 - E66.01) discussed weight loss with calories and portion control and increase in activity 07/03/2025 Depression with anxiety (ICD-10 - F41.8) If Contrave not covered will start Zoloft 07/03/2025 HTN (hypertension) (ICD-10 - I10) 01/02/2025 Other will consider cologuard 07/03/2025 Other she will schedu le her Mammogram; she will consider cologuard Plan Of Treatment Pending Test Test Name Order Date Cologuard 07/24/2025 Insurance Providers Payer Name Payer Address Payer Phone Subscriber Number Group Number Insured Name Patient Relationship to Insured Coverage Start Date Coverage End Date [employer] [address] [place] [address] [id number] ILENE HENSON Self - patient is the insured Medical (General) History Medical History History ICD Code left axilla DVT thyroid nodule Pneumonia obesity + heterozygous for prothrombin gene muta tion + lupus anticoagulant Surgical History Surgery Date(Month/Year) Hospitalization History Reason Date(Month/Year) pregancy 2007
--- OUTSIDE RECORDS SUMMARY | 2025-09-21 23:13 | XMS_ITS | Data Portability ---
Author Organization [facility] Address [address] [place] [address] Assessment No assessment recorded. Plan of Treatment Reminders Order Date Submit Date Provider Last Modified By Organization Details Last Modified Time Details Appointments None recorded. Lab None recorded. Referral None recorded. Procedures None recorded. Surgeries None recorded. Imaging electrocard iogram 2023 024 [facility], [address] [place] [address], [phone], 4 09:27:49 Medication Orders fluticasone propionate 50 mcg/actuati on nasal spray,suspe nsion 2024 025 [facility] 591, [address], [address], 5 10:12:22 loratadine 10 mg tablet 2024 025 [facility] 5[facility], [address], [address], 5 10:12:23 benzonatate 100 mg capsule 2024 025 [facility] 5[facility], [address], [address], 5 10:12:21 Patient TargetsNo targets recorded. Patient InstructionsNo instructions recorded. Reason for Referral None Reported. Results Created Date Observation Date Name Description Value Unit Range Abnormal Flag Note LastModifiedBy Organization Detail LastModifiedTime 05/24/20 24 05/23/2024 jarvis currie am No observ ation record ed. [email or web address] Not Available 2023 09:45:10 05/26/20 24 05/26/2024 jarvis currie am No observ ation record ed. [address], [place], [address], 05/26/2024 09:27:48 Result Notes None recorded. Problems Name Problem SNOMED Code Status Onset Date Resolution Date Notes Provider Name and Address Organization Details Recorded Time Hypertensiv e disorder 61385954 Active Loreto Madison kenny [facility] 5 10:49:25 Blood coagulation disorder 76309722 Active had a blood clot in shoulder in may 2024 Loreto Madison zoya [facility] 5 10:50:32 Problem Notes None recorded. Procedures Surgical History Date Name Laterality Status Provider Name and Address Organization Details Recorded Time Suture/Stapl e removal completed Yesenia Skelton [facility] 12/20/2024 11:17:10 Imaging Results None recorded. Procedure Notes None recorded. Medical Equipment None Reported. Allergies Allergen ID Allergen Name Allergen Category Reaction Reaction Severity Criticality Documentation Date Start Date Code Code System Note Provider Name and Address Organization Details Recorded Time 101316 Product containin g penicilli n (product) medicatio n Not available Not available Not available 05/23/2024 11801 8001 SNOMED Yeseniaavelina Freireshaquille zoya [facility] 4 14:50:01 Medications Name Sig Start Date Stop Date Status Note LastModified by Organization Details LastModified Time Mirena 21 mcg/24 hr (up to 8 years) 52 mg intrauterin e device Take by intrauter ine route. active Not Available Not Available No t Available irbesartan 150 mg-hydrochl orothiazide 12.5 mg tablet TAKE ONE TABLET BY MOUTH EVERY DAY active Not Available Not Available No t Available azithromyci n 250 mg tablet TAKE 2 TABLETS BY MOUTH ON DAY 1, AND THEN TAKE 1 TABLET BY MOUTH ONCE A DAY ON DAY 2 THROUGH DAY 5 01/27 completed Not Available Not Available Not Available sulfamethox azole 800 mg-trimetho prim 160 mg tablet TAKE 1 TABLET BY MOUTH TWICE DAILY 12/20 completed Not Available Not Available Not Available benzonatate 100 mg capsule TAKE 1 CAPSULE BY MOUTH TWICE DAILY FOR 5 DAYS active Not Available Not Available No t Available warfarin 5 mg tablet Take 1 tablet every day by oral route. active Not Available Not Available No t Available methylpredn isolone 4 mg tablets in a dose pack TAKE ACCORDING TO PACKAGE INSTRUCTI ONS --TAKE WITH FOOD-- -- FINISH ALL MEDICINE -- 12/20 completed Not Available Not Available Not Available cefdinir 300 mg capsule TAKE ONE CAPSULE BY MOUTH TWICE DAILY FOR PNEUMONIA -- FINISH ALL MEDICINE -- 12/20 completed Not Available Not Available Not Available fluticasone propionate 50 mcg/actuati on nasal spray,suspe nsion USE 1 SPRAY(S) IN EACH NOSTRIL ONCE DAILY active Not Available Not Available No t Available doxycycline hyclate 100 mg tablet TAKE ONE TABLET BY MOUTH TWICE DAILY 12/20 completed Not Available Not Available Not Available loratadine 10 mg tablet TAKE 1 TABLET BY MOUTH ONCE DAILY active Not Available Not Available No t Available Sprintec (28) 0.25 mg-0.035 mg tablet TAKE 1 TABLET BY MOUTH ONCE DAILY 12/20 completed Not Available Not Available Not Available Xarelto 15 mg tablet TAKE ONE TABLET BY MOUTH TWICE DAILY FOR DVT --TAKE WITH FOOD-- 12/20 completed Not Available Not Available Not Available Xarelto 20 mg tablet TAKE ONE TABLET BY MOUTH EVERY DAY WITH FOOD 12/20 completed Not Available Not Available Not Available Vitals Date Recorded Body height Provider Name an d Address Organization Details Last Updated DateTime 12/20/2024 172.72 cm Loreto Wallace [facility] 0 12/20/2024 10:42:44 Date Recorded Body height Body mass index (BMI) Body weight Heart rate Body temperature Oxygen saturation Oxygen saturation in Arterial blood by Pulse oximetry Respiratory rate Pain severity - 0-10 verbal numeric rating [Score] - Reported Systolic And Diastolic Provider Name and Address Organization Details Last Updated DateTime 172.72 cm 43.5 kg/m2 354867. 42 g 88 /min 97.8 [degF] 97 % 97 % 18 /min 0 116/72 mm[Hg] Loreto Wallace [place] - [facility] 5 09:41:30 Date Recorded Respiratory rate Body weight Body temperature Oxygen saturation Oxygen saturation in Arterial blood by Pulse oximetry Heart rate Body mass index (BMI) Body height Systolic And Diastolic Provider Name and Address Organization Details Last Updated DateTime 18 /min 137618. 68 g 98.4 [degF] 96 % 96 % 78 /min 42.3 kg/m2 172.72 cm 126/82 mm[Hg] Yesenia Freireshaquille [place] - [facility] 4 14:46:39 Social History Question Answer Notes LastModified by Quixhopizat ion Details LastModified Time Tobacco Smoking Status Never Smoker Yesenia Nafisa [facility] [place], [place] - [facility] 05/23/2024 14:51:46 Do You Have An Advance Directive? No Information not available 05/23/2024 Are You Blind Or Do You Have Difficulty Seeing? No Information not available 05/23/2024 What Is Your Level Of Caffeine Consumption? Moderate Information not available 05/23/2024 Are You Deaf Or Do You Have Serious Difficulty Hearing? No Information not available 05/23/2024 What Type Of Diet Are You Following? REGULAR Information not available 05/23/2024 What Is The Highest Grade Or Level Of School You Have Completed Or The Highest Degree You Have Received? [id number] Information not available 05/23/2024 Have There Been Any Changes To Your Family Or Social Situation? No Information no t available 05/23/2024 What Is The Fluoride Status Of Your Home? Unknown Information not available 05/23/2024 Do You Have A Medical Power Of Profiling Machine Set Up Operator? No Information not available 05/23/2024 What Was The Date Of Your Most Recent Tobacco Screening? 12/20/2024 [email or web address] Information not available 12/20/2024 What Is Your Relationship Status? Information not available 05/23/2024 Do You Have Smoke And Carbon Monoxide Detectors In Your Home? Yes Information not available 05/23/2024 Has Tobacco Cessation Counseling Been Provided? No Information not available 05/23/2024 Do You Have Difficulty Walking Or Climbing Stairs? No Information not available 05/23/2024 Sex: Female Functional Status Question Answer Note LastModified by Organizat ion Details LastModified Time Do you use any illicit or recreational drugs? No Information not available 05/23/2024 Do you or have you ever used any other forms of tobacco or nicotine? No Information not available 05/23/2024 What is your level of alcohol consumption? None Information not available 05/23/2024 Are you currently employed? Yes Information not available 05/23/2024 Do you have transportation difficulties? No Information not available 05/23/2024 Are you able to walk independently without assistance or assistive devices? YESWOREST Information not available 05/23/2024 Do you have difficulty doing errands alone? No Information not available 05/23/2024 Are you able to care for yourself independently? Yes Information not available 05/23/2024 What is your occupation? [employer] Information not available 05/23/2024 Do you have difficulty dressing, bathing, grooming, or toileting? No Information not available 05/23/2024 What is your exercise level? None Information not available 05/23/2024 Mental Status Question Answer Note LastModified by Organizat ion Details LastModified Time Do you feel stressed (tense, restless, nervous, or anxious, or unable to sleep at night)? [id number] Information not available 05/23/2024 Do you have difficulty concentrating, remembering or making decisions? No Information no t available 05/23/2024 Family History Relationship Description Onset Age of this Age Resolved Age Notes LastModified by Organization Details LastModified Time Father Hypertensive disorder [email or web address] Not available 2023 14:51:16 Medical History No medical history recorded. Gynecological History Statement/Question Response Last Annual Exam/Provider Date of Last Colonoscopy Date of Last Mammogram Date of LMP 12/20/2024 Most Recent Bone Density Menses Monthly Y LMP Definite Obstetrics History GPAL:G 0 P 0 0 0 0 Immunizations Vaccine Type Date Status Note Provider Nam e and Address Organization Details Recorded Time Influenza, recombinant, quadrivalent, PF 08/24/2020 completed Yesenia Stears null, [place] - [facility] 05/23/2024 14:39:42 COVID-19, mRNA, LNP-S, PF, 100 mcg/0.5mL dose or 50 mcg/0.25mL dose 02/05/2021 completed Eysenia Stears null, - [facility] 05/23/2024 14:39:43 COVID-19, mRNA, LNP-S, PF, 100 mcg/0.5mL dose or 50 mcg/0.25mL dose 03/08/2021 completed Yesenia Stears null, - [facility] 05/23/2024 14:39:43 COVID-19, mRNA, LNP-S, PF, 100 mcg/0.5mL dose or 50 mcg/0.25mL dose 09/27/2021 completed Yesenia Stears null, [place] - [facility] 05/23/2024 14:39:43 COVID-19, mRNA, LNP-S, bivalent, PF, 50 mcg/0.5 mL or 25mcg/0.25 mL dose 07/30/2022 completed Yesenia Stears null, [place] - [facility] 05/23/2024 14:39:43 Tdap 07/06/2021 completed Yesenia Stears null, [place] - [facility] 05/23/2024 14:39:43 Hep A, adult 04/04/2019 completed Yesenia Stear s null, [place] - [facility] 05/23/2024 14:39:43 Hep A, adult 09/14/2018 completed Yesenia Stear s null, [facility] 05/23/2024 14:39:43 Influenza, split virus, quadrivalent, PF 08/12/2021 completed Yesenia Stears null, [place] - [facility] 05/23/2024 14:39:43 Influenza, split virus, quadrivalent, PF 08/16/2022 completed Yesenia Stears null, [place] - [facility] 05/23/2024 14:39:43 Influenza, split virus, quadrivalent, PF 09/14/2018 completed Yesenia Stears null, [place] - [facility] 05/23/2024 14:39:43 Past Encounters Encounter ID Performer Location Encounter Start Date Encounter Closed Date Diagnosis/Indication Diagnosis SNOMED-CT Code Diagnosis ICD10 Code Diagnosis IMO Codes Diagnosis Note [id number] Bebe SchafferbalbirBONIN [address] [address] 05/23/2024 14:21:52 05/23/2024 15:25:39 Chest pain 56120023 R07.9 sent to er per dr castellon for eval [id number] Bebe Schafferhoafabian [employer] [address] [address] 12/20/2024 10:34:27 12/20/2024 11:14:03 Removal of suture 47328445 Z48.02 follow up with dermatolog ist [id number] Bebe Schafferhoafabian [employer] [address] [address] 01/27/2025 09:33:23 01/27/2025 10:10:18 Allergic rhinitis 58765910 J30.9 Cough 95561305 R05.9 Health Concerns Section Related Observation LastModified by Organization Detai ls LastModified Time None Recorded Concern Status LastModified by Organization Details LastModified Time None Recorded Advance Directives Directive N: Payers Insurance Date Sequence Insurance Name Policy Number Policy Siddiqui Covered Member ID Siddiqui Member ID Guarantor Name 03/02/2025 1 [place] [id number] Leena Henson [id number] Leena Henson Notes Date Note Type Note Provider Name and Address Organization Details Recorded Time 05/23/2024 text/html ROS as noted in the HPI 48 year old female who presents to the office today with concerns ofcough, sore throat, bilateral ear pressure, more on left ear--unable to do throat culturediscomfort in left shoulder at timesbreaks out in sweatschest pain that has been going on for 1 week Bebe Montemayor APRN [address], [place], [address], [place] - [facility] 05/26/2024 09:28:34 12/20/2024 text/html ROS as noted in the HPI 49 yr old female presents for stitch removal. She had a cyst removed from her scalp last Thursday and has 2 stitches. Bebe Montemayor APRN [address], [place], [address], [place] - [facility] 12/20/2024 11:21:04 01/27/2025 text/html ROS as noted in the HPI 49 yr old female presents with cough, clear drainage,chest is sore from coughing. Bebe Montemayor, [employer] [address], [place], [address], [place] - [facility] 01/27/2025 10:14:08 OBGyn Episode No OBEpisode recorded.
--- NOTE | 2025-09-21 23:17 | [facility].EDCP ---
Discharge Plan Disposition Patient Disposition: Home, Self-Care Condition: Good Prescriptions Prescriptions: No Action warfarin 5 mg tablet PO Patient Comments: TAKE 1 TABLET BY MOUTH ONCE DAILY loratadine 10 mg tablet PO PRN Patient Comments: TAKE 1 TABLET BY MOUTH ONCE DAILY irbesartan-hydrochlorothiazide 150-12.5 mg tablet 1 tab PO DAILY Qty: 90 3RF azelastine 0.05 % drops Eye-Both Patient Comments: INSTILL 1 DROP INTO AFFECTED EYE TWICE DAILY fluoxetine 20 mg capsule 20 mg PO Mirena 21 mcg/24 hr (8 yrs) 52 mg intrauterine device 1 device intrauterine ONCE Referrals Follow up/Referrals: Monika Rincon MD [Primary Care Provider, Medical] - See instructions Activity Restrictions/Add. Instructions Additional Instructions/Restrictions: You were evaluated in the ER and are believed to be appropriate for discharge at this time. Please call your primary care doctor and make an appointment to be seen in the next 2 to 3 days. Follow-up with cardiology at 9 AM as discussed. Return to the ER with any new, worsening, or otherwise concerning symptoms. Clinical Impressions Clinical Impression: Headache Chest pain Qualifiers: Chest pain type: unspecified Qualified Code(s): R07.9 - Chest pain, unspecified Print Language Print Language: Portuguese Discharge ED Provider: Asia Tillman General Chief Complaint: Chest Pain Stated Complaint: Chest Pain Time Seen by Provider: 09/21/25 23:02 Mode of Arrival: Ambulatory Source of Information: Patient Description of Symptoms (Recalled from ER Triage Doc. by RN): Patient states 10min after 2200 patient began to have leftr sided chect pain. States it has gotten better since then. States the pain is mainly on inspiration. Reports 4/10 pain currently, reports 8/10 at worst. States the pain is just superior to her left breast, and radiates into her posterior neck. History of Present Illness HPI narrative: 49-year-old female with history of coagulopathy, DVT on chronic anticoagulation with warfarin who reports her INR this morning was 2.3 presents to the ER with left-sided chest pain that started approximately 1 hour prior to arrival. Patient reports she had pain above her left breast that felt sharp and like it came and went in waves. She reports it was initially 8 out of 10 but now is only 4 out of 10. She states it is improving. She is starting to develop a headache in the back of her neck. She denies any tearing sensation. She denies any vision changes, thunderclap onset, numbness, tingling, or weakness. She has no nausea or vomiting. No radiation to the jaw or arms. No fevers or chills. She states she is starting to get a mild sore throat and wonders if all of this is just related to her potentially coming down with a virus. She has no other complaints or concerns. Patient took Tylenol prior to arrival. Related Data Home Medications ?Medication ?Instructions ?Recorded ?Confirmed levonorgestrel (Mirena) 1 device intrauterine ONCE 06/29/24 09/12/25 loratadine 10 mg tablet mg PO PRN 04/17/25 09/12/25 warfarin 5 mg tablet mg PO 04/17/25 09/12/25 azelastine 0.05 % eye drops drp Eye-Both 09/12/25 09/12/25 fluoxetine 20 mg capsule 20 mg PO 09/12/25 09/12/25 Previous Rx's ?Medication ?Instructions ?Recorded irbesartan 150 1 tab PO DAILY #90 tabs 04/20/25 mg-hydrochlorothiazide 12.5 mg tablet Allergies Allergy/AdvReac Type Severity Reaction Status Date / Time Penicillins (PENICILLINS) Allergy Unknown Unknown Verified 09/12/25 09:01 allergy reaction [facility] Disclaimer: The information contained in this section may have been updated after the patient was seen, as this information can be updated by other users. Medical History Hx of deep venous thrombosis HTN (hypertension) Thyroid nodule Thyroid Nodule Deviated nasal septum Acute sinusitis Uses oral contraceptives as primary control method Morbid obesity with body mass index (BMI) of 40.0 to 49.9 Right ankle injury Right posterior tibial strain Posterior tibial tendinitis, right leg Sprain of deltoid ligament of right ankle Right ankle sprain Contusion of right knee Left wrist sprain Seasonal allergies Obesity, Class II, BMI 35-39.9 Surgical History No history of previous surgery Family History Other No significant family history Social History Smoking Status: Never smoker alcohol intake: never current occupational status: other Travel in the last 8 weeks?: None housing: house Other Medical History Have you received the Flu Vaccine for this season: No Have you received the Pneumonia Vaccine: No ROS Obtained: Yes Systems reviewed as appropriate & no additional complaints except as documented Per HPI Physical Exam General General appearance: alert, in no apparent distress and obese Head Head exam: atraumatic and normocephalic Eye Eye exam: Present PERRL and EOMI ENT ENT exam: Present mucous membranes moist Neck Neck exam: Present normal inspection and full ROM; Absent tenderness Chest Chest inspection: Present symmetric chest wall rise; Absent tenderness Respiratory Respiratory exam: Present normal lung sounds bilaterally; Absent respiratory distress, wheezes or stridor Cardiovascular Cardiovascular exam: Present regular rate and normal rhythm Abdominal Exam Abdominal exam: Present soft; Absent distention, tenderness, guarding or rebound Extremities Exam Extremities exam: Present full ROM and normal capillary refill; Absent tenderness, edema, joint swelling or calf tenderness Neurological Exam Neurological exam: Present alert and oriented X3; Absent motor sensory deficit Psychiatric Psychiatric exam: Present normal affect and normal mood Skin Skin exam: Present warm and dry HEART Score HEART Score HEART Score assessment performed?: Yes History (anamnesis): Slightly suspicious ECG: Non-specific disturbance Age: 45-65 years Risk factors: 1-2 risk factors Troponin: </= normal limit HEART Score: 3 Critical Care Critical Care Time Critical Care Time: No Medical Decision Making Medical Records Medical records reviewed: Yes I reviewed the patient's medical records. MR Comment: Most recent cardiology note from April was reviewed by me demonstrating at that time patient had an EKG with a right bundle branch block present. They recommended follow-up in 6 months and to continue the anticoagulation that has been recommended by Dr. Bernal. Jose Inquiry Pt receiving controlled substance: No Vital Signs Vital Signs: 09/21/25 23:04 09/22/25 00:11 09/22/25 00:14 Temperature 98.6 F Temperature Source Oral Pulse Rate 88 64 Pulse Rate [Left] 66 Respiratory Rate 18 12 Blood Pressure [Right Arm] 145/68 H Blood Pressure Mean [Right Arm] 93 02 Sat by Pulse Oximetry 98 98 Oxygen Delivery Method Room Air Room Air 09/22/25 00:15 Temperature Temperature Source Pulse Rate 65 Pulse Rate [Left] Respiratory Rate 12 Blood Pressure [Right Arm] Blood Pressure Mean [Right Arm] 02 Sat by Pulse Oximetry 99 Oxygen Delivery Method Room Air Lab Data Labs: Lab Results 09/21/25 23:01: WBC 11.6 H, RBC 4.84, Hgb 13.9, Hct 42.1, MCV 87.0, MCH 28.7, MCHC 33.0, RDW 13.2, Plt Count 380, MPV 10.3, Neut % (Auto) 67.7, Lymph % (Auto) 22.4, [place] % (Auto) 8.1, Eos % (Auto) 1.0, Baso % (Auto) 0.6, Neut # (Auto) 7.8, Lymph # (Auto) 2.6, [place] # (Auto) 0.9, Eos # (Auto) 0.1, Baso # (Auto) 0.1, PT 22.4 H, INR 2.13 H, Sodium 135 L, Potassium 3.7, Chloride 100, Carbon Dioxide 28, Anion Gap 10.7, BUN 19 H, Creatinine 0.90, Estimated Creat Clear 77, Estimated GFR 67, Est GFR ( Amer) 81, Glucose 107 H, Calcium 9.2, Magnesium 1.8, Total Bilirubin 0.5, AST 29, ALT 20, Alkaline Phosphatase 102, Troponin I < 0.01, NT-Pro-B Natriuret Pep 43.9, Total Protein 7.7, Albumin 4.4, Globulin 3.3 H, Albumin/Globulin Ratio 1.3, Serum HCG, Qual Negative 09/22/25 02:20: Troponin I < 0.01 09/21/25 23:01 09/21/25 23:01 Response Orders (Tests/Meds): ED MEDICATIONS Discontinued Medications Generic Name Dose Route Start Last Admin Trade Name Freq PRN Reason Stop Dose Admin Aspirin 324 mg 09/21/25 23:05 09/21/25 23:18 Aspirin 81mg Chewable Tablet PO 09/21/25 23:06 324 mg ONCE ONE Administration Diphenhydramine HCl 12.5 mg 09/21/25 23:31 09/21/25 23:39 Diphenhydramine 50mg/Ml Vial IV 09/21/25 23:32 12.5 mg ONCE ONE Administration Lactated Ringer's 1,000 mls @ 999 mls/hr 09/21/25 23:27 09/22/25 01:37 Lactated Ringer's 1000 Ml Bag IV 09/22/25 00:27 Infused .Q1H1M ONE Infusion Iopamidol 150 ml 09/22/25 00:14 09/22/25 00:15 Iopamidol-370 (76%);100ml Bottle IV 09/22/25 00:15 150 ml ONCE ONE Administration Sodium Chloride 50 ml 09/22/25 00:14 09/22/25 00:15 0.9 % Sodium Chloride 50 Ml Vial IV 09/22/25 00:15 50 ml ONCE ONE Administration Sodium Chloride 10 ml 09/22/25 00:14 09/22/25 00:15 Sodium Chloride 0.9% 10ml Syr (Rad Only) IV 09/22/25 00:15 10 ml ONCE ONE Administration ORDERS Category Date Time Status CT Venogram head Stat Cat Scan 09/21/25 23:[address] angio chest PE protocol Stat Cat Scan 09/21/25 23:[address] head/brain wo con Stat Cat Scan 09/21/25 23:25 Completed XR chest portable Stat Exams 09/21/25 23:05 Completed Complete Blood Count Auto Diff Stat Lab 09/21/25 23:01 Completed Comprehensive Metabolic Panel Stat Lab 09/21/25 23:01 Completed HCG Qualitative, Serum Stat Lab 09/21/25 23:01 Completed Magnesium Stat Lab 09/21/25 23:01 Completed NT Pro Brain Natriuretic Pep. Stat Lab 09/21/25 23:01 Completed Prothrombin Time INR Stat Lab 09/21/25 23:01 Completed Troponin I Q3H Lab 09/22/25 02:20 Completed Troponin I Q3H Lab 09/22/25 05:15 Ordered Troponin I Stat Lab 09/21/25 23:01 Completed MDM Narrative Medical Decision Narrative: In summary, this 49-year-old female with comorbidities described in HPI presents to the emergency department today with left upper chest pain now having mild headache. On initial evaluation patient is hemodynamically stable, afebrile, GCS 15, cardiopulmonary exam is benign, no chest wall tenderness or evidence of trauma, GCS 15, no neurologic deficits, no swelling, redness, or edema of the extremities, no pain in the extremities. Differential diagnosis includes but is not limited to ACS, PE, esophageal spasm, pneumothorax, pneumonia, with patient's headache I did consider the possibility of migraine, tension headache, viral syndrome, I did also consider the remote possibility of central venous thrombus but have lower suspicion for this since patient is chronically anticoagulated. Based on these concerns, I ordered hematologic and serum labs, cardiac workup, CTA PE, CTV head. ECG personally interpreted demonstrates sinus rhythm, rate 70, normal axis, normal [place] and QTc, no STEMI. Patient receivedsingle dose of aspirin, IV fluids for treatment. Benadryl administered for headache. Since patient is already anticoagulated and receiving aspirin I do not want to administer Toradol and she took Tylenol prior to arrival. Labs personally reviewed demonstrate mild leukocytosis WBC 11.6 is nonspecific and nonactionable, no anemia, normal platelets, PT/INR with INR 2.13 is appropriate, CMP with mild prerenal azotemia which is already being treated with IV fluids, otherwise nonactionable. Initial troponin less than 0.01 reassuring in the setting of nonischemic ECG. Serial troponin pending. XR personally interpreted demonstrates no lobar infiltrate or pneumothorax, see radiology read for final interpretation. CT imaging personally interpreted demonstrate no intracranial hemorrhage or mass, I do not appreciate clot on CTV, I also do not appreciate large segmental or subsegmental PE. See radiology read for final interpretation. Patient is resting comfortably at this time. She was placed into ED observation at 0030 for continued monitoring and serial troponins to rule out evolving WI and preclude unnecessary admission. Patient remained on the nurse monitoring and was frequently reassessed. She has no chest pain. She states her headache is improved. She is resting comfortably at this time. She has remained hemodynamically stable. Repeat troponin also undetectably low less than 0.01. She is appropriate for discharge at this time. I gave her 9 AM cardiology follow-up on 09/22/2025. Patient was given instructions on symptomatic management, follow up instructions, and return precautions for the emergency department. Patient indicated understanding and was discharged in stable condition.
[2025-09-21] MEDS: ASPIRIN 81MG CHEWABLE TABLET 324 MG PO (23:18)
[2025-09-21 23:21] LABS: INR 2.13 (0.9-1.1); Prothrombin Time 22.4 seconds (10.1-12.5)
[2025-09-21 23:23] LABS: Alanine Aminotransferase 20 U/L (12-78); Albumin Level 4.4 g/dl (3.5-5.0); Albumin/Globulin Ratio 1.3 (1.1-1.8); Alkaline Phosphatase 102 U/L (38-126); Anion Gap 10.7 mEq/L (5-15); Aspartate Amino Transferase 29 U/L (14-36); Bilirubin,Total 0.5 mg/dl (0.2-1.3); Blood Urea Nitrogen 19 mg/dl (7-17); Calcium 9.2 mg/dl (8.4-10.2); Carbon Dioxide 28 mmol/L (22.0-30.0); Chloride 100 mmol/L (98-107); Creatinine Clearance Estimated 77 mL/min (50-200); Creatinine,Serum 0.90 mg/dl (0.52-1.04); Estimated Glomerular Filt Rate 67 ml/min (>60); GFR (African American) 81 ML/MIN (>60); Globulin 3.3 g/dL (1.3-3.2); Glucose 107 mg/dl (74-100); Potassium 3.7 mmoL/L (3.5-5.1); Sodium 135 mmol/L (136-145); Total Protein,Serum 7.7 g/dl (6.3-8.2)
--- NOTE | 2025-09-21 23:25 | CT_ITS ---
PROCEDURE INFORMATION: Exam: CT Head Without Contrast Exam date and time: 09/21/2025 11:59 PM Age: 49 years old Clinical indication: Pain; Headache; Additional info: FONTENOT, coagulopath TECHNIQUE: Imaging protocol: Computed tomography of the head without contrast. Radiation optimization: All CT scans at this facility use at least one of these dose optimization techniques: automated exposure control; mA and/or kV adjustment per patient size (includes targeted exams where dose is matched to clinical indication); or iterative reconstruction. COMPARISON: US THYROID 04/11/2025 12:53 PM FINDINGS: Brain: Normal. No hemorrhage. Unremarkable white matter. No mass effect. Cerebral ventricles: No ventriculomegaly. Paranasal sinuses: There is mucosal thickening of the maxillary sinuses. Mastoid air cells: Visualized mastoid air cells are well aerated. Bones: Unremarkable. No acute fracture. Soft tissues: Unremarkable. IMPRESSION: No acute intracranial process.
--- NOTE | 2025-09-21 23:25 | CT_ITS ---
PROCEDURE INFORMATION: Exam: CTA Head With Contrast, Venography Exam date and time: 09/22/2025 12:02 AM Age: 49 years old Clinical indication: Pain; Headache; Additional info: HX coagulopathy, headache TECHNIQUE: Imaging protocol: Computed tomography angiography of the head with contrast. Exam focused on the veins. 3D rendering (Not supervised by radiologist): MIP and/or 3D reconstructed images were created by the technologist. Radiation optimization: All CT scans at this facility use at least one of these dose optimization techniques: automated exposure control; mA and/or kV adjustment per patient size (includes targeted exams where dose is matched to clinical indication); or iterative reconstruction. Contrast material: ISOVUE; Contrast volume: 80 ml; Contrast route: INTRAVENOUS (IV); COMPARISON: CT HEAD/BRAIN WO CON 09/21/2025 11:59 PM FINDINGS: Superior sagittal sinus: Patent. Straight sinus: Patent. Transverse sinuses: Patent. Sigmoid sinuses: Patent. Internal jugular veins: Limited visualized internal jugular veins are patent. ANTERIOR CIRCULATION: Right internal carotid artery: Unremarkable. Intracranial segment is patent with no significant stenosis. No aneurysm. Right middle cerebral artery: Unremarkable. No occlusion or significant stenosis. No aneurysm. Right anterior cerebral artery: Unremarkable. No occlusion or significant stenosis. No aneurysm. Left internal carotid artery: Unremarkable. Intracranial segment is patent with no significant stenosis. No aneurysm. Left middle cerebral artery: Unremarkable. No occlusion or significant stenosis. No aneurysm. Left anterior cerebral artery: Unremarkable. No occlusion or significant stenosis. No aneurysm. POSTERIOR CIRCULATION: Right vertebral artery: Unremarkable. No occlusion or significant stenosis. No aneurysm. Left vertebral artery: Unremarkable. No occlusion or significant stenosis. No aneurysm. Basilar artery: Unremarkable. No occlusion or significant stenosis. No aneurysm. Right posterior cerebral artery: Unremarkable. No occlusion or significant stenosis. No aneurysm. Left posterior cerebral artery: Unremarkable. No occlusion or significant stenosis. No aneurysm. Brain: No definite mass, mass effect, or midline shift. Cerebral ventricles: No ventriculomegaly. Soft tissues: Unremarkable. IMPRESSION: 1. Negative CT Venography Head. No evidence of venous sinus thrombosis. 2. Negative limited CTA Head. No evidence of intracranial large vessel stenosis or occlusion.
[2025-09-21 23:28] LABS: HCG Qualitative, Serum Negative (Negative)
[2025-09-21 23:35] LABS: NT Pro Brain Natriuretic Pep. 43.9 pg/mL (0-125)
[2025-09-21 23:37] LABS: Troponin I < 0.01 ng/ml (0.00-0.034)
[2025-09-21 23:38] LABS: Magnesium 1.8 mg/dl (1.6-2.3)
[2025-09-21] MEDS: LACTATED RINGERS 1000ML 1,000 ML 999 ML IV (23:38)
[2025-09-22] VITALS (17 sets, daily range): BP systolic 124–149; BP diastolic 70–78; PULSE 53–88; RESP 11–18; TEMP 37.1; O2SAT 97–99
[2025-09-22] MEDS: 0.9 % SODIUM CHLORIDE 50 ML VIAL IV (00:15)
[2025-09-22] MEDS: SODIUM CHLORIDE 0.9% 10ML SYR (RAD ONLY) 10 ML IV (00:15)
[2025-09-22] MEDS: IOPAMIDOL-370 (76%);100ML BOTTLE 150 ML IV (00:15)
[2025-09-22 02:49] LABS: Troponin I < 0.01 ng/ml (0.00-0.034)
== END 2025-09-22 03:09 | disposition home or self-care (01) ==
PROVIDERS: Emergency Medicine; Emergency Provider Student in an Organized Health Care Education/Training Program; PCP Family Medicine
DX: R07.89 Other chest pain (principal); R51.9 Headache, unspecified
CPT/HCPCS: 70450; 70496; 71045; 71275; 80053; 83735; 83880; 84484; 84703; 85025; 85610; 93005; 96365; 96375; 99285; J1200; J7120; Q9967

== ENCOUNTER 2025-10-02 07:45 | Outpatient (CLI) | payer BC, SELFPAY ==
--- OUTSIDE RECORDS SUMMARY | 2025-03-02 04:15 | XMS_ITS ---
[facility] Address [address] [id number] Care Team Providers Care Electrical Instrument Technician Name Role Phone Jordyn Rincon Primary Care Provider [phone] Daphne Raza [phone] Allergies Allergen (clinical drug ingredient) Drug/Non Drug Allergy documented on EMR Reaction Allergy Type Onset Date Status Substance with penicillin structure and antibacterial mechanism of action (substance) Penicillins Unknown Drug Allergy Active Results Component Value Reference Range Notes PT/INR (in house) Reviewed date:03/02/2025 02:14:35 PM Interpretation: Performing Lab: Notes/Report: INR 2.3 current dose 2.5mg Tu,Sat, 5mg AOD new dose same next check 4 weeks ideal INR 2-3 CBC Venipuncture (in house) Reviewed date:03/02/2025 03:48:10 PM Interpretation: Performing Lab: Notes/Report: wbc 8.8 3.5 - 10 lymph 22.8% 15 - 50 mid 5.6% 2 - 15 gran 71.6% 35 - 80 rbc 5.18 3.5 - 5.5 hgb 14.6 11.5 - 16.5 hct 44.4 35 - 55 mcv 85.7 75 - 100 mch 28.2 25 - 35 mchc 32.9 31 - 38 platlet 374 100 - 400 P-Vitamin B12 Reviewed date:03/16/2025 01:31:05 PM Interpretation:Normal Performing Lab: Notes/Report: Test performed by [facility], [facility] [address] [place] [address] , [place] [address] Luisito Torres MD, [employer] CLIA: [id number] Vitamin B12 385 258-1562 pg/mL P-Comprehensive Metabolic Pa lili (CMP) Reviewed date:03/16/2025 01:30:54 PM Interpretation:Normal Performing Lab: Notes/Report: Test performed by [facility] [address] [place] [address] , [facility] [place] [address] Luisito Torres MD, [employer] CLIA: [id number] Sodium 139 135-145 mmol/L Potassium 4.5 3.5-5.3 mmol/L Chloride 102 97-108 mmol/L CO2 23 22-32 mmol/L Glucose 91 65-99 mg/dL BUN 11 6-20 mg/dL Creatinine 0.74 0.50-1.00 mg/dL Calcium 9.5 8.6-10.4 mg/dL eGFR by Creatinine 100 >59 mL/min/1.73m2 Protein 6.9 6.0-8.3 g/dL Albumin 4.4 3.5-5.3 g/dL Alkaline Phosphatase 87 35-121 IU/L ALT (SGPT) 15 <5-47 IU/L AST (SGOT) 17 <5-40 IU/L Bilirubin, Total 0.5 <0.2-1.2 mg/dL A/G Ratio 1.8 1.1-2.5 P-TSH reflex to FT4 Reviewed date:03/16/2025 01:30:44 PM Interpretation:Normal Performing Lab: Notes/Report: Test performed by [facility] [address] [place] [address] , [address], [place] [address] Luisito Torres MD, [employer] CLIA: [id number] TSH reflex to FT4 2.61 0.43-5.25 mU/L REASON FOR VISIT 2 weeks Medications Medication SIG (Take, Route, Frequency, Duration) Notes Start Date End Date Status Warfarin Sodium 5 MG 1 tablet Orally Onc e a day; Duration: 90 days Active Mirena (52 MG) 20 MCG/DAY as directed Intrauterine Active Irbesartan-hydroCHLOROthi azide 150-12.5 MG 1 tablet Orally Once a day Active Claritin 10 MG 1 tablet Orally Once a day Active Problems Problem Type SNOMED Code ICD Code Onset Dates Problem Status W/U Status Risk Notes Problem Paresthesia (50891074) Paresthesia (R20.2) Active confirmed Vital Signs Weight 291.8 lbs 03/02/2025 Blood pressure systolic 112 mm Hg 03/02/20 25 Blood pressure diastolic 70 mm Hg 025 Heart Rate 67 /min 03/02/2025 Height 67 in 03/02/2025 BMI 45.7 kg/m2 03/02/2025 Encounters Encounter Location Date Provider Diagnosis [facility] [address] [facility] [address] [id number] 03/02/2025 Daphne Raza History of DVT (deep vein thrombosis) Z86.718 ; Paresthesia R20.2 and Persistent cough R05.3 Assessments Encounter Date Diagnosis (ICD Code) Assessment Notes Treatment Notes Treatment Clinical Notes Section Notes 03/02/2025 History of DVT (deep vein thrombosis) (ICD-10 - Z86.718) 03/02/2025 Paresthesia (ICD-10 - R20.2) 03/02/2025 Persistent cough (ICD-10 - R05.3) Will start on flonase and antihistamine OTC. Plan Of Treatment Medication Medication Name Sig Start Date Stop Date Notes Warfarin Sodium 5 MG 1 tablet Orally Onc e a day; Duration: 90 days Treatment Notes Assessment Notes Persistent cough Will start on flonas e and antihistamine OTC. Next Appt Details Follow Up: 4 Weeks, Reason: Progress Notes * ILENE HENSONDOB:[birth year] (49 yo F)Acc No.[id number]:03/02/2025 Progress Notes Patient: ILENE SAAB Provider: CECE Almaraz :1975 A ge:49 Y S ex:Female Date:03/02/2025 Address:[address] [place] [address] , [facility] Pcp:Jordyn Rincon Subjective: * Chief Complaints: * 1 . 2 weeks. * HPI: H ematology: 49 year old female presents with c/o PT/INR d ue for PT/INR. N eurology: c/o tingling/ numbness d own the front of the right leg. E NT/respiratory: c/o cough H as a chronic cough. * ROS: D ERMATOLOGY: no R lupe. n o H manav. G ASTROENTEROLOGY: no N ausea. n o V omiting. U ROLOGY: no D ifficulty urinating. n o B lood in urine. * Medical History: l eft axilla DVT, Thyroid nodule, Pneumonia, Obesity, + heterozygous for prothrombin gene mutation, + lupus anticoagulant. * Surgical History: D enies Past Surgical History. * Hospitalization/Major Diagno stic Procedure: p regancy 2007. * Family History: F ather: alive. M other: alive. P aternal Grand Father: . P aternal Grand Mother: . M aternal Grand Father: . M aternal Grand Mother: . 1 sister(s) . 1 son(s) . . * Social History: C URRENT TOBACCO USE S moking Status: Patient does NOT smoke. C affeine: yes, frequency:daily. Exercise: yes, some. Home smoke detector use: yes. Marital Status: . New since last visit: none. Occupation: yes. Past smoking status: no. Occup. exposure: none. Recreational drug use: no. Alcohol: socially, Type: , Frequency: ,Years: , Determination:. Sexually active: yes. Travel ouside US: no. * Medications: T aking Claritin 10 MG Tablet 1 tablet Orally Once a day , Taking Mirena (52 MG) 20 MCG/DAY Intrauterine Device as directed Intrauterine , Taking Irbesartan-hydroCHLOROthiazide 150-12.5 MG Tablet 1 tablet Orally Once a day , Taking Warfarin Sodium 5 MG Tablet 1 tablet Orally Once a day , Medication List reviewed and reconciled with the patient * Allergies: P enicillins. Objective: * Vitals: W t: 291.8, Temp: 97.7, BP: 112/70, HR: 67, Nurse: marco, Ht: 67, BMI:45.7. * Examination: G eneral Examination: General Appearance: N AD. C hest: n ormal shape and expansion. H eart: R SR. L ungs: c lear to auscultation. E xtremities: no leg edema, normal ROM of lower extremities. Assessment: * Assessment: 1. H istory of DVT (deep vein thrombosis) - Z86.718 (Primary) 2 . P aresthesia - R20.2 3 . P ersistent cough - R05.3 Plan: * Treatment: Value Reference Range I NR 2.3 * c urrent dose 2.5mg Tu,Sat, 5mg AOD * n ew dose same * n ext check 4 weeks * i deal INR 2-3 * Rula Contreras 03/02/2025 09:11: 37 AM > Provider reviewed results while patient in office. 2.?Paresthesia?LAB: P-Vitamin B12 (Collection Date & Time - 03/02/2025 08:36 AM)?Normal* Value Reference Range V itamin B12 465 342-2326 - pg/mL * Yanna Mliler 03/10/2025 11:4 1:32 AM > please inform pt of normal labsNaidaginaRyann 03/16/2025 01:31:01 PM >pt informed ?LAB: P-Comprehensive Metabolic Panel (CMP) (Collection Date & Time - 03/02/2025 08:36 AM)?Normal* Value Reference Range A /G Ratio 1.8 1.1-2.5 - * A lbumin 4.4 3.5-5.3 - g/dL * A lkaline Phosphatase 87 35-121 - IU/L * A LT (SGPT) 15 <5-47 - IU/L * A ST (SGOT) 17 <5-40 - IU/L * B ilirubin, Total 0.5 <0.2-1.2 - mg/dL * B UN 11 6-20 - mg/dL * C alcium 9.5 8.6-10.4 - mg/dL * C hloride 102 97-108 - mmol/L * C O2 23 22-32 - mmol/L * C reatinine 0.74 0.50-1.00 - mg/dL * G lucose 91 65-99 - mg/dL * P otassium 4.5 3.5-5.3 - mmol/L * S odium 139 135-145 - mmol/L * P rotein 6.9 6.0-8.3 - g/dL * e GFR by Creatinine 100 >59 - mL/min/1.73m2 * Yanna Miller 03/10/2025 11:4 1:32 AM > please inform pt of normal Ryann Doss 03/16/2025 01:30:50 PM >pt informed ?LAB: P-TSH reflex to FT4 (Collection Date & Time - 03/02/2025 08:36 AM)? Normal* Value Reference Range T SH reflex to FT4 2.61 0.43-5.25 - mU/L * Yanna Miller 03/10/2025 11:4 1:32 AM > please inform pt of normal Ryann Doss 03/16/2025 01:30:37 PM >pt informed ?LAB: CBC Venipuncture (in house) (Collection Date & Time - 03/02/2025)* Value Reference Range w bc 8.8 3.5 - 10 * l ymph 22.8% 15 - 50 * m id 5.6% 2 - 15 * g ran 71.6% 35 - 80 * r bc 5.18 3.5 - 5.5 * h gb 14.6 11.5 - 16.5 * h ct 44.4 35 - 55 * m cv 85.7 75 - 100 * m ch 28.2 25 - 35 * m chc 32.9 31 - 38 * p latlet 374 100 - 400 * Rula Contreras 03/02/2025 10:17:4 6 AM > 3.?Persistent cough? Notes: Will start on flonase and antihistamine OTC.?? * Procedure Codes: 8 5610 PROTHROMBIN TIME, Modifiers: QW , 78297 CBC WITH AUTO DIFF, 3074F SYST BP LT 130 MM HG, 3078F DIAST BP < 80 MM HG * Follow Up: 4 Weeks * Images: Billing Information: * Visit Code: 66439 Office Visit, Est Pt., Level 3. * Procedure Codes: 47219 PROTHROMBIN TIME. Modifiers: QW 18137 CBC WITH AUTO DIFF. 3074F SYST BP LT 130 MM HG. 3078F DIAST BP < 80 MM HG. * Electronic signature of CECE Dumont on 10/02/2025 at 07:48 AM EST Sign off status: Pending * Provider: CECE Almaraz Date: 0 03/02/2025 Generated for Gabbii ng/Tressa/eTransmitting on: 1 2024 07:48 AM EST History and Physical Notes * HPI (History of Present Illness) Category Sub-Category Detail Notes Category Not es ENT/respiratory cough Has a chronic cough Neurology tingling/ numbness down the front of the right leg Hematology PT/INR due for PT/INR Examination Category Sub-Category Detail Notes Category Not es General Examination Heart: RSR Lungs: clear to auscultatio n Extremities: no leg edema, normal ROM of lower extremities General Appearance: NAD Chest: normal shape and exp ansion
--- OUTSIDE RECORDS SUMMARY | 2025-03-30 06:30 | XMS_ITS ---
[facility] Organization [facility] Address [address] [facility] [address] [phone] Care Team Providers Care Manufacturer Agent Name Role Phone Jordyn Rincon Primary Care Provider [phone] Daphne Raza Unavailable [phone] Allergies Allergen (clinical drug ingredient) Drug/Non Drug Allergy documented on EMR Reaction Allergy Type Onset Date Status Substance with penicillin structure and antibacterial mechanism of action (substance) Penicillins Unknown Drug Allergy Active Results Component Value Reference Range Notes PT/INR (in house) Reviewed date:03/30/2025 12:15:03 PM Interpretation: Performing Lab: Notes/Report: PT 22.2 INR 1.8 current dose 2.5 mg Tu, Sat. 5 mg AOD new dose 2.5mg Sat and 5mg AOD next check 1 week ideal INR 2-3 REASON FOR VISIT 4 weeks Medications Medication SIG (Take, Route, Frequency, Duration) Notes Start Date End Date Status Mirena (52 MG) 20 MCG/DAY as directed Intrauterine Active Claritin 10 MG 1 tablet Orally Once a day Active Warfarin Sodium 5 MG 1 tablet Orally Onc e a day; Duration: 90 days Active Irbesartan-hydroCHLOROthi azide 150-12.5 MG 1 tablet Orally Once a day Active Vital Signs Weight 292.6 lbs 03/30/2025 Blood pressure systolic 120 mm Hg 03/30/20 25 Blood pressure diastolic 74 mm Hg 025 Heart Rate 60 /min 03/30/2025 Height 67 in 03/30/2025 BMI 45.82 kg/m2 03/30/2025 Encounters Encounter Location Date Provider Diagnosis [facility] [address] [facility] [address] [place] [id number] 03/30/2025 Daphne Ry History of DVT (deep vein thrombosis) Z86.718 Assessments Encounter Date Diagnosis (ICD Code) Assessment Notes Treatment Notes Treatment Clinical Notes Section Notes 03/30/2025 History of DVT (deep vein thrombosis) (ICD-10 - Z86.718) Plan Of Treatment Next Appt Details Follow Up: 1 Week, Reason: Progress Notes * ILENE SPANNDOB:[birth year] (49 yo F)Acc No.[id number]:03/30/2025 Progress Notes Patient: ILNEE SAAB Provider: CECE Almaraz :1975 A ge:49 Y S ex:Female Date:03/30/2025 Address:[address] [place] [address] , [id number] Pcp:Jordyn Rincon Subjective: * Chief Complaints: * 1 . 4 weeks. * HPI: H ematology: 49 year old female presents with c/o PT/INR d ue for PT/INR. * ROS: D ERMATOLOGY: no R lupe. n o H manav. G ASTROENTEROLOGY: no N ausea. n o V omiting. n o D iarrhea.? U ROLOGY: no D ifficulty urinating. n o B lood in urine. * Medical History: l eft axilla DVT, Thyroid nodule, Pneumonia, Obesity, + heterozygous for prothrombin gene mutation, + lupus anticoagulant. * Hospitalization/Major Diagno stic Procedure: p regancy [...] P enicillins. Objective: * Vitals: W t: 292.6, Temp: 97.8, BP: 120/74, HR: 60, Nurse: KARIN, Ht: 67, BMI:45.82. * Examination: G eneral Examination: General Appearance: N AD , appears healthy , Color good.? Assessment: * Assessment: 1. H istory of DVT (deep vein thrombosis) - Z86.718 Plan: * Treatment: Value Reference Range P T 22.2 * I NR 1.8 * c urrent dose 2.5 mg Tu, Sat. 5 mg AOD * n ew dose 2.5mg Sat and 5mg AOD * n ext check 1 week * i deal INR 2-3 * Yanna Miller 03/30/2025 11: 38:58 AM >Daphne Raza 03/30/2025 12:14:58 PM > * Procedure Codes: 8 5610 PROTHROMBIN TIME, Modifiers: QW , 77116 CAPILLARY BLOOD DRAW * Follow Up: 1 Week * Images: Billing Information: * Visit Code: 60677 Office Visit, Est Pt., Level 2. * Procedure Codes: 68903 PROTHROMBIN TIME. Modifiers: QW 26951 CAPILLARY BLOOD DRAW. * Electronic signature of CECE Dumont on 10/02/2025 at 07:48 AM EST Sign off status: Pending * Provider: CECE Almaraz Date: 0 03/30/2025 Generated for Segundo roberts/Tressa/eTransmitting on: 1 2024 07:48 AM EST History and Physical Notes * HPI (History of Present Illness) Category Sub-Category Detail Notes Category Not es Hematology PT/INR due for PT/INR Examination Category Sub-Category Detail Notes Category Not es General Examination General Appearance: NAD , ap pears healthy , Color good
--- OUTSIDE RECORDS SUMMARY | 2025-04-06 05:30 | XMS_ITS ---
Author Organization [facility] Address 12[address] [facility] [address] [phone] Care Team Providers Care Broadband Engineer Name Role Phone Jordyn Rincon Primary Care Provider [phone] Daphne Raza Unavailable [phone] Allergies Allergen (clinical drug ingredient) Drug/Non Drug [...] Once a day Active Vital Signs Weight 293.4 lbs 04/06/2025 Blood pressure systolic 122 mm Hg 04/06/20 25 Blood pressure diastolic 64 mm Hg 025 Heart Rate 75 /min 04/06/2025 Height 67 in 04/06/2025 BMI 45.95 kg/m2 04/06/2025 Encounters Encounter Location Date Provider Diagnosis [facility] [address] [facility] [address] [place] [id number] 04/06/2025 Daphne Ry History of DVT (deep vein thrombosis) Z86.718 Assessments Encounter Date Diagnosis (ICD Code) Assessment Notes Treatment Notes Treatment Clinical Notes Section Notes 04/06/2025 History of DVT (deep vein thrombosis) (ICD-10 - Z86.718) Plan Of Treatment Next Appt Details Follow Up: 2 Weeks, Reason: Progress Notes * ILENE HENSONDOB:[birth year] (49 yo F)Acc No.[id number]:04/06/2025 Progress Notes Patient: ILENE SAAB Provider: CECE Almaraz :1975 A ge:49 Y S ex:Female Date:04/06/2025 Address:[address] [place] [address] , [place] [id number] Pcp:Jordyn Rincon Subjective: * Chief Complaints: * [...] 8 5610 PROTHROMBIN TIME, Modifiers: QW , 53159 CAPILLARY BLOOD DRAW, 1036F TOBACCO NON-USER, G8752 MOST RECENT SYSTOLIC BP < 140MM HG, G8754 MOST RECENT DIASTOLIC BP < 90MM HG * Follow Up: 2 Weeks * Images: Billing Information: * Visit Code: 43257 Office Visit, Est Pt., Level 2. * Procedure Codes: 70035 PROTHROMBIN TIME. Modifiers: QW 35473 CAPILLARY BLOOD DRAW. 1036F TOBACCO NON-USER. G8752 MOST RECENT SYSTOLIC BP < 140MM HG. G8754 MOST RECENT DIASTOLIC BP < 90MM HG. * Electronic signature of CECE Dumont on 10/02/2025 at 07:51 AM EST Sign off status: Pending * Provider: CECE Almaraz Date: 0 04/06/2025 Generated for Segundo roberts/Tressa/Angelismitting on: 1 2024 07:51 AM EST History and Physical Notes * HPI (History of Present Illness) Category Sub-Category Detail Notes Category Not es Hematology PT/INR due for PT/INR Examination Category Sub-Category Detail Notes Category Not es General Examination General Appearance: NAD , ap pears healthy , Color good
--- OUTSIDE RECORDS SUMMARY | 2025-04-20 05:15 | XMS_ITS ---
Author Organization [facility] Address [address] [place] [address] [phone] Care Team Providers Care Security Orderly Name Role Phone Jordyn Rincon Primary Care Provider Daphne Raza Unavailable [phone] Allergies Allergen (clinical drug ingredient) Drug/Non Drug Allergy documented on EMR Reaction Allergy Type Onset Date Status Substance with penicillin structure and antibacterial mechanism of action (substance) Penicillins Unknown Drug Allergy Active Results Component Value Reference Range Notes PT/INR (in house) Reviewed date:04/21/2025 01:22:53 PM Interpretation:3.1 Performing Lab: Notes/Report: 3.1 PT 37.3 INR 3.1 current dose 2.5 mg Sat,5 mg AOD new dose same next check 2 weeks ideal INR 2-3 REASON FOR VISIT 2 weeks Medications Medication SIG (Take, Route, Frequency, Duration) Notes Start Date End Date Status Claritin 10 MG 1 tablet Orally Once a day Active Mirena (52 MG) 20 MCG/DAY as directed Intrauterine Active Irbesartan-hydroCHLOROthi azide 150-12.5 MG 1 tablet Orally Once a day Active Warfarin Sodium 5 MG 1 tablet Orally Onc e a day; Duration: 90 days Active Vital Signs Weight 294.6 lbs 04/20/2025 Blood pressure systolic 120 mm Hg 04/20/20 25 Blood pressure diastolic 90 mm Hg 025 Heart Rate 60 /min 04/20/2025 Height 67 in 04/20/2025 BMI 46.14 kg/m2 04/20/2025 Encounters Encounter Location Date Provider Diagnosis [facility] [address] [facility] [address] [place] [id number] 04/20/2025 Daphne Ry History of DVT (deep vein thrombosis) Z86.718 Assessments Encounter Date Diagnosis (ICD Code) Assessment Notes Treatment Notes Treatment Clinical Notes Section Notes 04/20/2025 History of DVT (deep vein thrombosis) (ICD-10 - Z86.718) Plan Of Treatment Next Appt Details Follow Up: 2 Weeks, Reason: Progress Notes * ILENE HENSONDOB:[birth year] (49 yo F)Acc No.[id number]:04/20/2025 Progress Notes Patient: ILENE SAAB Provider: CECE Almaraz :1975 A ge:49 Y S ex:Female Date:04/20/2025 Address:[address] [place] [address] , [place] [id number] Pcp:Jordyn Rincon Subjective: * Chief Complaints: * 1 . 2 weeks. * HPI: H ematology: 49 year old female presents with c/o PT/INR d ue for PT/INR. Pt states she is taking Warfarin 2.5 mg on Thursday and 5 mg all other days. Denies : Bruising. D enies : Bleeding. D enies : hematuria. D enies : epistaxis. * ROS: D ERMATOLOGY: no R lupe. [...] P enicillins. Objective: * Vitals: W t: 294.6, Temp: 98.0, BP: 120/90, HR: 60, Nurse: ELDA, Ht: 67, BMI:46.14. * Examination: G eneral Examination: General Appearance: N AD, appears healthy, alert. ? Assessment: * Assessment: 1. H istory of DVT (deep vein thrombosis) - Z86.718 (Primary) Plan: * Treatment: Value Reference Range P T 37.3 * I NR 3.1 * c urrent dose 2.5 mg Sat,5 mg AOD * n ew dose same * n ext check 2 weeks * i deal INR 2-3 * Ca Gay 04/20/2025 10 :57:22 AM EDT > Provider reviewed results while patient in office. * Procedure Codes: 8 5610 PROTHROMBIN TIME, Modifiers: QW , 60301 CAPILLARY BLOOD DRAW, 1036F TOBACCO NON-USER * Follow Up: 2 Weeks * Images: Billing Information: * Visit Code: 71075 Office Visit, Est Pt., Level 2. * Procedure Codes: 84991 PROTHROMBIN TIME. Modifiers: QW 67371 CAPILLARY BLOOD DRAW. 1036F TOBACCO NON-USER. * Electronic signature of CECE Dumont on 10/02/2025 at 07:49 AM EST Sign off status: Pending * Provider: CECE Almaraz Date: 0 04/20/2025 Generated for Segundo roberts/Tressa/eTransmitting on: 2024 07:49 AM EST History and Physical Notes * HPI (History of Present Illness) Category Sub-Category Detail Notes Category Not es Hematology epistaxis hematuria Bruising Bleeding PT/INR due for PT/INR. Pt s tatrosanna she is taking Warfarin 2.5 mg on Thursday and 5 mg all other days Examination Category Sub-Category Detail Notes Category Not es General Examination General Appearance: NAD, appears h ealthy, alert
--- OUTSIDE RECORDS SUMMARY | 2025-05-04 04:00 | XMS_ITS ---
Author Organization [facility] Address [address] [facility] [address] [place] [phone] Care Team Providers Care Monorail Car Operator Name Role Phone Jordyn Rincon Primary Care Provider [phone] Daphne Raza Unavailable [phone] Allergies Allergen (clinical drug ingredient) Drug/Non Drug [...] Notes Problem Long-term current use of anticoagulant (872897933) Anticoagulant long-term use (Z79.01) Active confirmed Problem Seasonal allergic rhinitis (482889328) Other seasonal allergic rhinitis (J30.2) Active confirmed Vital Signs Weight 291.8 lbs 05/04/2025 Blood pressure systolic 100 mm Hg 05/04/20 25 Blood pressure diastolic 70 mm Hg 025 Heart Rate 67 /min 05/04/2025 Height 67 in 05/04/2025 BMI 45.7 kg/m2 05/04/2025 Encounters Encounter Location Date Provider Diagnosis [facility] [address] [place] [id number] 05/04/2025 Daphne Raza History of DVT (deep [...] * ILENE SPANNDOB:[birth year] (49 yo F)Acc No.[id number]:05/04/2025 Progress Notes Patient: ILENE SAAB Provider: CECE Almaraz :1975 A ge:49 Y S ex:Female Date:05/04/2025 Address:[address] [place] [address] , [facility] Pcp:Jordyn Rincon Subjective: * Chief Complaints: * 1 . 2 weeks. * HPI: H ematology: 49 year old female presents with c/o PT/INR d ue for PT/INR. Pt states she is taking Warfarin 2.5 mg on Saturday and 5 mg all other days. Pt states she is needing a refill for Claritin sent to [facility] in [place] for a 90 days supply. Denies : [...] 8 5610 PROTHROMBIN TIME, Modifiers: QW , 28699 CAPILLARY BLOOD DRAW * Follow Up: 1 Week * Images: Billing Information: * Visit Code: 41050 Office Visit, Est Pt., Level 3. * Procedure Codes: 48466 PROTHROMBIN TIME. Modifiers: QW 33169 CAPILLARY BLOOD DRAW. * Electronic signature of CECE Dumont on 10/02/2025 at 07:51 AM EST Sign off status: Pending * Provider: CECE Almaraz Date: 0 05/04/2025 Generated for Segundo roberts/Tressa/eTransmitting on: 1 2024 07:51 AM EST History and Physical Notes * HPI (History of Present Illness) Category Sub-Category Detail Notes Category Not es Hematology epistaxis hematuria Bruising Bleeding PT/INR due for PT/INR. Pt s tates she is taking Warfarin 2.5 mg on Thursday and 5 mg all other days. Pt states she is needing a refill for Claritin sent to [facility] in [place] for a 90 days supply Examination Category Sub-Category Detail Notes Category Not es General Examination General Appearance: NAD, reji ears healthy, Color good
--- OUTSIDE RECORDS SUMMARY | 2025-05-11 04:45 | XMS_ITS ---
Author Organization [facility] Address [address] [facility] 36 [facility] [address] [place] [phone] Care Team Providers Care Reference Services Head Name Role Phone Jordyn Rincon Primary Care Provider [phone] Daphne Raza Unavailable [phone] Allergies Allergen (clinical drug ingredient) Drug/Non Drug [...] Duration: 90 days Active Vital Signs Weight 292.8 lbs 05/11/2025 Blood pressure systolic 112 mm Hg 05/11/20 25 Blood pressure diastolic 76 mm Hg 025 Heart Rate 61 /min 05/11/2025 Height 67 in 05/11/2025 BMI 45.85 kg/m2 05/11/2025 Encounters Encounter Location Date Provider Diagnosis [facility] [address] [facility] [address] [place] [id number] 05/11/2025 Daphne Lozanojamar History of DVT (deep [...] * ILENE SPANNDOB:[birth year] (49 yo F)Acc No.[id number]:05/11/2025 Progress Notes Patient: VIET SAABNIFER Provider: CECE Almaraz :1975 A ge:49 Y S ex:Female Date:05/11/2025 Address:[address] [place], [place] [phone] Pcp:Jordyn Rincon Subjective: * Chief Complaints: * [...] 8 5610 PROTHROMBIN TIME, Modifiers: QW , 25915 CAPILLARY BLOOD DRAW, 1036F TOBACCO NON-USER, G8783 BP SCR PRFRM RCMDD DEFIND SCR INTVL, G8752 MOST RECENT SYSTOLIC BP < 140MM HG, G8754 MOST RECENT DIASTOLIC BP < 90MM HG * Follow Up: 2 Weeks * Images: Billing Information: * Visit Code: 78589 Office Visit, Est Pt., Level 2. * Procedure Codes: 93248 PROTHROMBIN TIME. Modifiers: QW 44158 CAPILLARY BLOOD DRAW. 1036F TOBACCO NON-USER. G8783 BP SCR PRFRM RCMDD DEFIND SCR INTVL. G8752 MOST RECENT SYSTOLIC BP < 140MM HG. G8754 MOST RECENT DIASTOLIC BP < 90MM HG. * Electronic signature of CECE Dumont on 10/02/2025 at 07:49 AM EST Sign off status: Pending * Provider: CECE Almaraz Date: 0 05/11/2025 Generated for Segundo roberts/Tressa/eTransmitting on: 2024 07:49 [...]
--- OUTSIDE RECORDS SUMMARY | 2025-05-25 05:00 | XMS_ITS ---
Author Organization [facility] Address [address] [place] [phone] Care Team Providers Care Construction Field Engineer Name Role Phone Jordyn Rincon Primary Care Provider [phone] Daphne Raza [phone] REASON FOR VISIT 2 week f/u Encounters Encounter Location Date Provider Diagnosis [facility] [address] [place] [phone] 05/25/2025 Daphne Raza Plan Of Treatment No Information Progress Notes * ILENE SPANNDOB:[birth year] (49 yo F)Acc No.[id number]:05/25/2025 Progress Notes Patient: Tyesha FLOWERSDANIELA ILENE Provider: CECE Almaraz :1975 A ge:49 Y S ex:Female Date:05/25/2025 Address:[address] [place], [place] [phone] Pcp:Jordyn Rincon Subjective: * Chief Complaints: * 1 . 2 week f/u. * Medical History: Objective: * Vitals: Assessment: Plan: * Treatment: * Images: Billing Information: * Visit Code: * Procedure Codes: * Electronic signature of CECE Dumont on 10/02/2025 at 07:51 AM EST Sign off status: Pending * Provider: CECE Almaraz Date: 0 05/25/2025 Generated for Printi ng/Faxing/eTransmitting on: 2024 07:51 AM EST
--- OUTSIDE RECORDS SUMMARY | 2025-06-24 05:00 | XMS_ITS ---
Author Organization [facility] Address 1210 [facility] 36 [facility] [address] [place], [place] [phone] Care Team Providers Care Sql Server Developer Name Role Phone Jordyn Rincon Primary Care Provider Ernie Fleming Unavailable [phone] Allergies Allergen (clinical drug ingredient) Drug/Non Drug [...] Once a day Active Vital Signs Weight 294.4 lbs 06/24/2025 Blood pressure systolic 120 mm Hg 06/24/20 25 Blood pressure diastolic 80 mm Hg 025 Heart Rate 72 /min 06/24/2025 Height 67 in 06/24/2025 BMI 46.1 kg/m2 06/24/2025 Encounters Encounter Location Date Provider Diagnosis [facility] [place] [address] [facility] [address] [place] [phone] 06/24/2025 Ernie Fleming Allergic conjunctivi tis of [...] * ILENE HENSONDOB:[birth year] (49 yo F)Acc No.[id number]:06/24/2025 Progress Notes Patient: ILENE SAAB Provider: Amrita Fleming M.D. :1975 A ge:49 Y S ex:Female Date:06/24/2025 Address:[address] [place] [address] Pcp:Jordyn Rincon Subjective: * Chief Complaints: * [...] * Images: Billing Information: * Visit Code: 48228 Office Visit, Est Pt., Level 3. * Procedure Codes: * Electronic signature of Marquita Fleming MD on 10/02/2025 at 07:49 AM EST Sign off status: Pending * Provider: Amrita Fleming M.D. Date: 0 06/24/2025 Generated for Segundo roberts/Tressa/Kiran on: 2024 07:49 AM EST History and [...]
--- OUTSIDE RECORDS SUMMARY | 2025-07-03 04:30 | XMS_ITS ---
Author Organization [facility] Address [address] [facility] [address] [place] [phone] Care Team Providers Care Economic Specialist Name Role Phone Jordyn Rincon Primary Care Provider [phone] Katiuska Sharpe Unavailable [phone] Allergies Allergen (clinical drug ingredient) Drug/Non Drug [...] Interpretation:Normal Performing Lab: Notes/Report: Test performed by [employer], [employer] [address] [place] [address] , [address], [place] [address] Luisito Torres MD, Academic Vice President CLIA: [id number] Sodium 139 135-145 mmol/L Potassium 4.2 3.5-5.3 [...] 104 Performing Lab: Notes/Report: Test performed by [facility], [address] , [place] [address] Luisito Torres MD, Academic Vice President CLIA: [id number] Cholesterol 213 <200 mg/dL Triglycerides 104 <150 [...] Body mass index 40+ - severely obese (582673936) Adult BMI 45.0-49.9 kg/sq m (Z68.42) Active confirmed Problem Mixed anxiety and depressive disorder (692368250) Depression with anxiety (F41.8) Active confirmed Vital Signs Weight 291 lbs 07/03/2025 Blood pressure systolic 128 mm Hg 07/03/20 25 Blood pressure diastolic 78 mm Hg 025 Heart Rate 60 /min 07/03/2025 Height 67 in 07/03/2025 BMI 45.57 kg/m2 07/03/2025 Encounters Encounter Location Date Provider Diagnosis Vijaya [address] [facility] [address] [place] [id number] 07/03/2025 Katiuska Sharpe History of DVT (deep vein thrombosis) Z86.718 ; Heterozygous for prothrombin Y08780Y mutation D68.52 ; Anticoagulant long-term use Z79.01 ; Lipid screening Z13.220 ; Environmental allergies Z91.048 ; Adult BMI 45.0-49.9 kg/sq m Z68.42 ; Depression with anxiety F41.8 and HTN (hypertension) I10 Assessments Encounter Date Diagnosis (ICD Code) Assessment Notes Treatment Notes Treatment Clinical Notes Section Notes 07/03/2025 History of DVT (deep vein thrombosis) (ICD-10 - Z86.718) 07/03/2025 Heterozygous for prothrombin M53408C mutation (ICD-10 - D68.52) she continue to follow with Dr. Bernal 07/03/2025 Anticoagulant long-term use (ICD-10 - Z79.01) she continues [facility] INR home monitoring weekly as is required by the MD [employer] 07/03/2025 Lipid screening (ICD-10 - Z13.220) 07/03/2025 [...] Treatment Notes Assessment Notes Heterozygous for prothrombin U04918O mutation she continue to follow with Dr. Bernal Anticoagulant long-term use she continue s [facility] INR home monitoring weekly as is required [...] * ILENE SPANNDOB:[birth year] (49 yo F)Acc No.[id number]:07/03/2025 Progress Notes Patient: ILENE SAAB Provider: LAKHWINDER Bradford :1975 A ge:49 Y S ex:Female Date:07/03/2025 Address:[address] [place] [address] Pcp:Jordyn Rincon Subjective: * Chief Complaints: * [...] Travel ouside [place]: no. * Medications: T shiereng Mirena (52 MG) 20 MCG/DAY Intrauterine Device [...] (Primary) 2 . H eterozygous for prothrombin M10409H mutation - D68.52 3 . A nticoagulant [...] AM EDT >see encounter 2.?Heterozygous for prothrombin M39823Q mutation?LAB: P-Comprehensive Metabolic Panel (CMP) (Collection Date [...] Orally, Once a day.?? Notes: she continues [facility] INR home monitoring weekly as is required [...] Codes: 8 5025 CBC WITH AUTO DIFF, 96041 VENIPUNCT, ROUTINE*, 1036F TOBACCO NON-USER, 3074F SYST BP LT 130 MM HG, 3078F DIAST BP < 80 MM HG * Follow Up: 6 Months,and prn * Images: Billing Information: * Visit Code: 54962 Office Visit, Est Pt., Level 4. * Procedure Codes: 94293 CBC WITH AUTO DIFF. 75896 VENIPUNCT, ROUTINE*. 1036F TOBACCO NON-USER. 3074F SYST BP LT 130 MM HG. 3078F DIAST BP < 80 MM HG. * Electronic signature of Ny Sharpe APRN on 10/02/2025 at 07:51 AM EST Sign off status: Pending * Provider: LAKHWINDER Bradford Date: 0 07/03/2025 Generated for Segundo roberts/Tressa/Jluisitting on: 1 2024 07:51 AM EST History [...]
--- OUTSIDE RECORDS SUMMARY | 2025-10-02 07:48 | XMS_ITS | Patient Health Record ---
Author Organization [facility] Address [address] [facility] [address] [facility] [address] [place] [id number] Care Team Providers Care Print Inspector Name Role Phone Jordyn Rincon Primary Care Provider Salvatore Babb Unavailable [phone] Ernie Fleming Unavailable [phone] Katiuska Sharpe Unavailable [phone] Daphne Raza Unavailable [phone] Allergies Allergen (clinical drug ingredient) Drug/Non Drug Allergy documented on EMR Reaction Allergy Type Onset Date Status Substance with penicillin structure and antibacterial mechanism of action (substance) Penicillins Unknown Drug Allergy Active Results Component Value Reference Range Notes P-Lipid Panel Reviewed date:01/06/2025 03:10:48 PM Interpretation:non-hdl 134 Performing Lab: Notes/Report: Test performed by [facility], [address] , [address], [place] [address] Luisito Torres MD, Engineering Document Control Clerk CLIA: [id number] Cholesterol 181 <200 mg/dL Triglycerides 93 <150 [...] Results: 115 Units: mg/dL % Change: - P-Comprehensive Metabolic Pa lili (CMP) Reviewed date:01/06/2025 03:11:24 PM Interpretation:Normal Performing Lab: Notes/Report: Test performed by [facility], [address] , [address], [place] [address] Luisito Torres MD, Engineering Document Control Clerk CLIA: [id number] Sodium 140 135-145 mmol/L Potassium 4.2 3.5-5.3 [...] 0.4 <0.2-1.2 mg/dL A/G Ratio 1.6 1.1-2.5 Glycohemoglobin A1c (in hous e) Reviewed date:01/06/2025 03:10:22 PM Interpretation:5.5% Performing Lab: Notes/Report: 5.5% glycohemoglobin 5.5% 5 - 6.5 % CBC Venipuncture (in house) Reviewed date:01/02/2025 12:49:28 [...] - 38 platlet 194 100 - 400 PT/INR Reviewed date:09/07/2025 11:39:06 AM Interpretation: Performing Lab: Notes/Report: INR 2.6 current dose 2.5 mg MF and 5 mg AOD new dose same ideal INR 2-3 PT/INR Reviewed date:07/28/2025 12:45:13 [...] ideal INR 2-3 PT/INR (in house) Reviewed date:05/11/2025 04:55:02 PM [...] ideal INR 2-3 PT/INR (in house) Reviewed date:02/09/2025 10:03:15 AM Interpretation: Performing Lab: Notes/Report: PT 39.8 INR 2.9 current dose 2.5 T,Sat and 5mg AOD new dose same next check 1 week PT/INR (in house) Reviewed date:02/16/2025 09:28:10 AM [...] Interpretation:Normal Performing Lab: Notes/Report: Test performed by [facility] [address] , [address], [place] [address] Luisito Torres MD, Engineering Document Control Clerk CLIA: [id number] Vitamin B12 617 276-9146 pg/mL P-Comprehensive Metabolic Pa lili (CMP) Reviewed date:03/16/2025 01:30:54 PM Interpretation:Normal Performing Lab: Notes/Report: Test performed by [facility] [address] [place] [address] , [address], [place] [address] Luisito Torres MD, Engineering Document Control Clerk CLIA: [id number] Sodium 139 135-145 mmol/L Potassium 4.5 3.5-5.3 [...] Interpretation:Normal Performing Lab: Notes/Report: Test performed by [facility] [address] [place] [address] , [address], [place] [address] Luisito Torres MD, Engineering Document Control Clerk CLIA: [id number] TSH reflex to FT4 2.61 0.43-5.25 mU/L PT/INR (in house) Reviewed date:03/30/2025 12:15:03 PM [...] INR 2-3 CBC Venipuncture (in house) Reviewed date:07/17/2025 08:57:21 [...] Interpretation:Normal Performing Lab: Notes/Report: Test performed by [facility] [address] [place] [address] [address], [place] [address] Luisito Torres MD, Engineering Document Control Clerk CLIA: [id number] Sodium 139 135-145 mmol/L Potassium 4.2 3.5-5.3 [...] 104 Performing Lab: Notes/Report: Test performed by [facility] [address] [place] [address] [address], [place] [address] Luisito Torres MD, Engineering Document Control Clerk CLIA: [id number] Cholesterol 213 <200 mg/dL Triglycerides 104 <150 [...] Results: 147 Units: mg/dL % Change: +27% Mammogram Reviewed date:08/24/2025 04:57:10 PM Interpretation:Negative Performing Lab: Notes/Report: Negative PT/INR Reviewed date:06/01/2025 12:28:44 PM Interpretation:3.0 Performing Lab: Notes/Report: 3.0 INR 3.0 current dose 2.5 mg MF and 5 mg AOD next check 1 week ideal INR 2-3 PT/INR Reviewed date:06/07/2025 01:44:54 PM Interpretation:2.9 Performing Lab: Notes/Report: 2.9 INR 2.9 current dose 2.5 mg MF and 5 mg AOD new dose same next check 2 weeks ideal INR 2-3 PT/INR Reviewed date:08/24/2025 04:55:17 PM Interpretation:2.5 Performing Lab: Notes/Report: 2.5 INR 2.5 current dose 2.5 mg MF and 5 mg AOD new dose same next check 4 weeks ideal INR 2-3 Urinalysis - Inhouse [...] Interpretation:Normal Performing Lab: Notes/Report: Test performed by [facility] [address] [place] [address] , [address], [place] [address] Luisito Torres MD, Engineering Document Control Clerk CLIA: [id number] Sodium 138 135-145 mmol/L Potassium 4.4 3.5-5.3 [...] Ratio 1.8 1.1-2.5 PT/INR (in house) Reviewed date:02/03/2025 01:50:18 PM Interpretation:3.2 Performing Lab: Notes/Report: 3.2 PT 37.8 INR 3.2 current dose 5mg daily new dose 2.5mg T, Sat and 5mg AOD next check 1 week PT/INR (in house) Reviewed date:01/26/2025 03:04:57 PM Interpretation: Performing Lab: Notes/Report: PT 12.8 INR 1.1 current dose new start new dose 5mg qd next check 1 week Medications Medication SIG (Take, Route, [...] Status W/U Status Risk Notes Problem Hypertension (01540763) HTN (hypertension) (I10) Active confirmed Problem History of DVT (deep vein thrombosis) (329491561) History of DVT (deep vein thrombosis) (Z86.718) Active confirmed Problem Seasonal allergy (135804462) Seasonal allergies (J30.2) Active confirmed Problem Environmental allergy (675698910) Environmental allergies (Z91.048) Active confirmed Problem Paresthesia (26361811) Paresthesia (R20.2) Active confirmed Problem Mixed anxiety and depressive disorder (429364494) Depression with anxiety (F41.8) Active confirmed Problem Seasonal allergic rhinitis (041465546) Other seasonal allergic rhinitis (J30.2) Active confirmed Problem Thyroid nodule (112020945) Thyroid nodule (E04.1) Active confirmed Problem Morbid obesity (387617538) Obesity, Class III, BMI 40-49.9 (morbid obesity) (E66.01) Active confirmed Problem Long-term current use of anticoagulant (172747735) Anticoagulant long-term use (Z79.01) Active confirmed Problem Posterior rhinorrhea (79867426) PND (post-nasal drip) (R09.82) Active confirmed Problem Acute upper respiratory infection (17763282) Upper respiratory infection with cough and congestion (J06.9) Active confirmed Problem Body mass index 40+ - severely obese (389621794) Adult BMI 45.0-49.9 kg/sq m (Z68.42) Active confirmed Problem 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 (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) 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 Vital Signs Heart Rate 60 /min 07/03/2025 Blood pressure diastolic 78 mm Hg 07/03/2025 Height 67 in 07/03/2025 Blood pressure systolic 128 mm Hg 07/03/2025 Weight 291 lbs 07/03/2025 BMI 45.57 kg/m2 07/03/2025 Encounters Encounter Location Date Provider [facility] [address] [place] [id number] 01/02/2025 Katiuska Sharpe Diabetes mellitus screening Z13.1 ; HTN (hypertension) I10 ; URI (upper respiratory infection) J06.9 ; Head congestion R09.81 ; Lipid screening Z13.220 and Obesity, Class III, BMI 40-49.9 (morbid obesity) E66.01 [facility] [address] [place] [id number] 01/23/2025 R Barry Babb HTN (hypertension) I 10 [facility] [address] [place] [id number] 01/26/2025 R Barry Babb History of DVT (deep vein thrombosis) Z86.718 ; Heterozygous for prothrombin T13535K mutation D68.52 and Seasonal allergies J30.2 [facility] [address] [place] [id number] 02/03/2025 Daphne Crowdy History of DVT (deep vein thrombosis) Z86.718 and Heterozygous for prothrombin O95703I mutation D68.52 [facility] [address] [place] [id number] 02/09/2025 Daphne Crowdy History of DVT (deep vein thrombosis) Z86.718 and Heterozygous for prothrombin W77678V mutation D68.52 [facility] [address] [place] [id number] 02/16/2025 Daphne Crowdy History of DVT (deep vein thrombosis) Z86.718 and Heterozygous for prothrombin S65901I mutation D68.52 [facility] [address] [place] [id number] 03/02/2025 Daphne Crowdy History of DVT (deep vein thrombosis) Z86.718 ; Paresthesia R20.2 and Persistent cough R05.3 [facility] [address] [place] [id number] 03/30/2025 Daphne Crowdy History of DVT (deep vein thrombosis) Z86.718 [facility] [address] [facility] [address] [place], [place] [id number] 04/06/2025 Daphne Crowdy History of DVT (deep vein thrombosis) Z86.718 [facility] [address] [place], [place] [id number] 04/20/2025 Daphne Crowdy History of DVT (deep vein thrombosis) Z86.718 [facility] [address] [place], [place] [id number] 05/04/2025 Daphne Crowdy History of DVT (deep vein thrombosis) Z86.718 ; Anticoagulant long-term use Z79.01 and Other seasonal allergic rhinitis J30.2 [facility] [address] [place], [place] [id number] 05/11/2025 Daphne Crowdy History of DVT (deep vein thrombosis) Z86.718 and Anticoagulant long-term use Z79.01 [facility] [address] [place], [place] [id number] 06/24/2025 Ernie Baggs Allergic conjunctivi tis of right eye H10.11 [facility] [address] [place], [place] [id number] 07/03/2025 Katiuska Sharpe History of DVT (deep vein thrombosis) Z86.718 ; Heterozygous for prothrombin Y38848D mutation D68.52 ; Anticoagulant long-term use Z79.01 ; Lipid screening Z13.220 ; Environmental allergies Z91.048 ; Adult BMI 45.0-49.9 kg/sq m Z68.42 ; Depression with anxiety F41.8 and HTN (hypertension) I10 [facility] [address] [facility] [address] [place], [place] [id number] 01/24/2025 Jordyn Rincon [facility] [address] [place], [place] [id number] 04/16/2025 Jordyn Rincon [facility] [address] [place], [place] [id number] 05/01/2025 Jordyn Rincon [facility] [address] [place], [place] [id number] 05/09/2025 Jordyn Laura Sergey [facility] [address] [place], [place] [id number] 05/23/2025 Jordyn Valentín Rincon [facility] [address] [place], [place] [id number] 07/03/2025 Jordyn Valentín Sergey [facility] [address] [place], [place] [id number] 07/17/2025 Katiuska Sharpe [facility] [address] [place], [place] [id number] 07/24/2025 Jordyn Valentín Rincon Colon cancer screeni ng Z12.11 and Breast cancer screening Z12.31 [facility] [address] [place], [place] [id number] 07/27/2025 Daphne Raza Assessments Encounter Date Diagnosis (ICD Code) Assessment Notes Treatment Notes Treatment Clinical Notes Section Notes 05/11/2025 History of DVT (deep vein thrombosis) (ICD-10 - Z86.718) 07/03/2025 Heterozygous for prothrombin F54369D mutation (ICD-10 - D68.52) she continue to follow with Dr. Bernal 07/24/2025 Colon cancer screening (ICD-10 - Z12.11) 07/24/2025 Breast cancer screening (ICD-10 - Z12.31) 02/16/2025 History of DVT (deep vein thrombosis) (ICD-10 - Z86.718) 02/16/2025 Heterozygous for prothrombin L22452I mutation (ICD-10 - D68.52) 01/02/2025 HTN (hypertension) [...] she can check her levels at home. 06/24/2025 Allergic conjunctivitis of right eye (ICD-10 - H10.11) 07/03/2025 History of DVT (deep vein thrombosis) (ICD-10 - Z86.718) 01/26/2025 Heterozygous for prothrombin L37461N mutation (ICD-10 - D68.52) 02/03/2025 History of DVT (deep vein thrombosis) (ICD-10 - Z86.718) 02/03/2025 Heterozygous for prothrombin K13703Z mutation (ICD-10 - D68.52) 02/09/2025 History of DVT (deep vein thrombosis) (ICD-10 - Z86.718) 02/09/2025 Heterozygous for prothrombin D57889Y mutation (ICD-10 - D68.52) 03/02/2025 History of [...] Other seasonal allergic rhinitis (ICD-10 - J30.2) 05/11/2025 Anticoagulant long-term use (ICD-10 - Z79.01) Patient will have to remain on coumadin. Will order an mdINR machine so she can check her levels at home. 07/03/2025 Anticoagulant long-term use (ICD-10 - Z79.01) she continues [facility] INR home monitoring weekly as is required by the machine company 01/02/2025 Head congestion (ICD-10 - R09.81) fluids, [...] Coverage Start Date Coverage End Date [employer] [id number] [place] [address] [id number] ILENE HENSON Self - patient is the insured Medical (General) History Medical History History ICD Code left axilla DVT thyroid nodule Pneumonia obesity + heterozygous for prothrombin gene muta tion + lupus anticoagulant Surgical History Surgery Date(Month/Year) Hospitalization History Reason Date(Month/Year) pregancy 2007
--- OUTSIDE RECORDS SUMMARY | 2025-10-02 07:49 | XMS_ITS | Data Portability ---
Author Organization formerly [facility] Address [address] [place] [address] Assessment No assessment recorded. Plan of Treatment Reminders Order Date Submit Date Provider Last Modified By Organization Details Last Modified Time Details Appointments None recorded. Lab None recorded. Referral None recorded. Procedures None recorded. Surgeries None recorded. Imaging electrocard iogram 2023 024 [facility], [address] [place] [address], [phone], 4 09:27:49 Medication Orders fluticasone propionate 50 mcg/actuati on nasal spray,suspe nsion 2024 025 [facility], [address], [address], 5 10:12:22 loratadine 10 mg tablet 2024 025 [facility], [address], [address], 5 10:12:23 benzonatate 100 mg capsule 2024 025 [facility], [address], [address], 5 10:12:21 Patient TargetsNo targets recorded. Patient InstructionsNo instructions recorded. Reason for Referral None Reported. Results Created Date Observation Date Name Description Value Unit Range Abnormal Flag Note LastModifiedBy Organization Detail LastModifiedTime 05/24/20 24 05/23/2024 jarvis currie am No observ ation record ed. [email or web address] Not Available 2023 09:45:10 05/26/20 24 05/26/2024 jarvis currie am No observ ation record ed. [address], [place], [address], 05/26/2024 09:27:48 Result Notes None recorded. Problems Name Problem SNOMED Code Status Onset Date Resolution Date Notes Provider Name and Address Organization Details Recorded Time Hypertensiv e disorder 09599639 Active Loreto [place] kenny [facility] 5 10:49:25 Blood coagulation disorder 51166691 Active had a blood clot in shoulder in may 2024 Loreto Madison zoya [facility] 5 10:50:32 Problem Notes None recorded. Procedures Surgical History Date Name Laterality Status Provider Name and Address Organization Details Recorded Time Suture/Stapl e removal completed [facility] 11:17:10 Imaging Results None recorded. Procedure Notes None recorded. Medical Equipment None Reported. Allergies Allergen ID Allergen Name Allergen Category Reaction Reaction Severity Criticality Documentation Date Start Date Code Code System Note Provider Name and Address Organization Details Recorded Time 506524 Product containin g penicilli n (product) medicatio n Not available Not available Not available 05/23/2024 35624 8001 SNOMED Yeseniaavelina Freireshaquille zoya [facility] 4 14:50:01 Medications Name Sig Start [...] Updated DateTime 12/20/2024 172.72 cm Loreto Wallace Andela - [facility] 0 12/20/2024 10:42:44 Date Recorded Body height Body mass index (BMI) Body weight Heart rate Body temperature Oxygen saturation Respiratory rate Pain severity - 0-10 verbal numeric rating [Score] - Reported Systolic And Diastolic Provider Name and Address Organization Details Last Updated DateTime 5 172.72 cm 43.5 kg/m2 302127. 42 g 88 /min 97.8 [degF] 97 % 18 /min 0 116/72 mm[Hg] Loreto LEE - [facility] 09:41:30 Date Recorded Respiratory rate Body weight Body temperature Oxygen saturation Heart rate Body mass index (BMI) Body height Systolic And Diastolic Provider Name and Address Organization Details Last Updated DateTime 18 /min 709637. 68 g 98.4 [degF] 96 % 78 /min 42.3 kg/m2 172.72 cm 126/82 mm[Hg] Yesenia Skelton [place] - [facility] 14:46:39 Social History Question Answer Notes LastModified by [employer] Details LastModified Time Tobacco Smoking Status Never Smoker Yesenia Skelton null, [place] - [facility] 05/23/2024 14:51:46 Do You [...] Or The Highest Degree You Have Received? [id number] Information not available 05/23/2024 Have There Been Any Changes To Your Family Or Social Situation? No Information no t available 05/23/2024 What Is The Fluoride Status Of Your Home? Unknown Information not available 05/23/2024 Do You Have A Medical Power Of [employer]? No Information not available 05/23/2024 What Was [...] not available 05/23/2024 What is your occupation? [employer] Information not available 05/23/2024 Do you have difficulty dressing, bathing, grooming, or toileting? No Information not available 05/23/2024 What is your exercise level? None Information not available 05/23/2024 Mental Status Question Answer Note LastModified by Organizat ion Details LastModified Time Do you feel stressed (tense, restless, nervous, or anxious, or unable to sleep at night)? [id number] Information not available 05/23/2024 Do you have [...] Influenza, recombinant, quadrivalent, PF 08/24/2020 completed Yesenia Skelton null, [place] - [facility] 05/23/2024 14:39:42 COVID-19, mRNA, LNP-S, PF, 100 mcg/0.5mL dose or 50 mcg/0.25mL dose 02/05/2021 completed Yesenia Stears null, [place] - [facility] 05/23/2024 14:39:43 COVID-19, mRNA, LNP-S, PF, 100 mcg/0.5mL dose or 50 mcg/0.25mL dose 03/08/2021 completed Yesenia Stears null, [place] - [facility] 05/23/2024 14:39:43 COVID-19, mRNA, LNP-S, PF, 100 mcg/0.5mL dose or 50 mcg/0.25mL dose 09/27/2021 completed Yesenia Stears [place], [place] - [facility] 05/23/2024 14:39:43 COVID-19, mRNA, LNP-S, bivalent, PF, 50 mcg/0.5 mL or 25mcg/0.25 mL dose 07/30/2022 completed Yesenia Stears null, [place] - [facility] 05/23/2024 14:39:43 Tdap 07/06/2021 completed Yesenia Stears null, [place] - [facility] 05/23/2024 14:39:43 Hep A, adult 04/04/2019 completed Yesenia Stear s [place], [place] - [facility] 05/23/2024 14:39:43 Hep A, adult 09/14/2018 completed Yesenia Stear s [place], [place] - [facility] 05/23/2024 14:39:43 Influenza, split virus, quadrivalent, PF 08/12/2021 completed Yesenia Stears null, [place] - [facility] 05/23/2024 14:39:43 Influenza, split virus, quadrivalent, PF 08/16/2022 completed Yesenia Stears null, [place] - [facility] 05/23/2024 14:39:43 Influenza, split virus, quadrivalent, PF 09/14/2018 completed Yesenia Stears null, [place] - [facility] 05/23/2024 14:39:43 Past Encounters Encounter ID Performer Location Encounter Start Date Encounter Closed Date Diagnosis/Indication Diagnosis SNOMED-CT Code Diagnosis ICD10 Code Diagnosis IMO Codes Diagnosis Note [id number] Bebe Montemayor APRN [place] [id number] 1 05/23/2024 14:21:52 05/23/2024 15:25:39 Chest pain 49304365 R07.9 sent to er per dr castellon for eval [id number] Bebe Shcafferbalbir [employer] [address] [address] 12/20/2024 10:34:27 12/20/2024 11:14:03 Removal of suture 18508896 Z48.02 follow up with dermatolog ist [id number] Jonelavelina Montemayor [employer] [address] [address] 01/27/2025 09:33:23 01/27/2025 10:10:18 Allergic rhinitis 98658392 J30.9 Cough 89830001 R05.9 Health Concerns Section Related Observation LastModified by Organization Detai ls LastModified Time None Recorded Concern Status LastModified by Organization Details LastModified Time None Recorded Advance Directives Directive N: Payers Insurance Date Sequence Insurance Name Policy Number Policy Siddiqui Covered Member ID Siddiqui Member ID Guarantor Name 03/02/2025 1 [place] [id number] Leena Henson [id number] Leena Henson Notes Date Note Type [...] week Bebe Montemayor APRN [address], [place], [address], [place] - [facility] 05/26/2024 09:28:34 12/20/2024 text/html ROS as noted in the HPI 49 yr old female presents for stitch removal. She had a cyst removed from her scalp last Thursday and has 2 stitches. Bebe Montemayor APRN [address], [place], [address], [place] - [facility] 12/20/2024 11:21:04 01/27/2025 text/html ROS as noted in the HPI 49 yr old female presents with cough, clear drainage,chest is sore from coughing. Bebe Montemayor, [employer] [address], [place], [address], [facility] - [facility] 01/27/2025 10:14:08 OBGyn Episode No OBEpisode recorded.
--- NOTE | 2025-10-02 08:00 | CA_ITS ---
APPROVED REPORT EXAM: Comprehensive 2D, Doppler, and color-flow Echocardiogram Spooler Operator: Carol Willard RT(R) Ht: 5 ft 8 in Wt: 290lbs BSA: 2.39 BP: 147/84 mmHg Indications: Chest Pain, Shortness of Breath 2D Dimensions Left Atrium 3.58 cm LVOT 1.95 cm (M/F) 1.5-2.5 M-Mode Dimensions RVDd 2.83 cm (0.9-2.6) LVDd 4.35 cm (3.5-5.7) Ao Diam 3.02 cm (2.0-3.7) LVDs 2.24 cm (3.5-5.7) IVSd 0.80 cm (0.6-1.1) PWd 1.01 cm (0.6-1.1) EF (Teich) 80.10% FS 48.50% EDV (Teich) 85.40 mL ESV (Teich) 17.00 mL LV Diastology E Decel Time 136 (160-240 msec) E/A Ratio 0.95 MED E' 9.1 (>= 7 cm/sec) E'/MED E' Ratio 7.40 (<= 14) LAT E' 7.2 (>= 10 cm/sec) E/LAT E' Ratio 9.35 (<= 14) Mitral Valve MV E Max Jay. 67.0 (40-130 cm/s) MV A Velocity 71.0 (40-130 cm/s) E/A Ratio 0.95 MV Decel. Time 136 (160-240 ms) Left Ventricle The left ventricle is normal size. Left ventricular systolic function is normal. The left ventricular ejection fraction is within the normal range. There is increased left ventricular wall thickness. The septum is asynchronous. The left ventricular diastolic function is normal. LVEF is 55% Right Ventricle Right ventricle is mildly dilated. The right ventricular systolic function is normal. Atria Left atrium is mildly dilated. Right atrium is mildly dilated. There is no color Doppler evidence of interatrial shunt. Aortic Valve The aortic valve is mildly thickened. There is no hemodynamically significant aortic valvular stenosis. Trace aortic regurgitation is present. Mitral Valve The mitral valve is normal in structure. No evidence of mitral valve stenosis. Trace mitral regurgitation is present. Tricuspid Valve The tricuspid valve leaflets are thin and pliable. Trace tricuspid regurgitation. There is insufficient TR jet to estimate RVSP. Pulmonic Valve The pulmonary valve is grossly normal in structure. Mild pulmonic valve regurgitation is present. Great Vessels The aortic root is normal in size. IVC is normal in size and collapses >50% with inspiration. Pericardium There is no pericardial effusion. Other Information Study Quality: Technically Difficult Conclusion Normal biventricular systolic function. Asynchronous septum. Mild RV dilation. Mild biatrial dilation. Mild PI. Electronically signed by : Marina Shabazz MD 10/08/2025 21:54:16
--- NOTE | 2025-10-02 08:45 | US_ITS ---
FINAL REPORT TECHNIQUE: Sonographic images of the thyroid gland were obtained in the longitudinal and transverse planes. CLINICAL HISTORY: 6 month f/u for thyroid repeat U/S COMPARISON: 04/11/2025 FINDINGS: The right lobe measures 1.4 x 4.4 x 1.3 cm. The right lobe is homogeneous. There are no cystic or solid nodules. The previously seen 9 mm right thyroid nodule is not seen on today's exam and may have been thyroid lobulation. The left lobe measures 4.4 x 1.4 x 1.6 cm. The 17 mm hypoechoic mixed cystic and solid nodule previously measured 17 mm and is unchanged. The isthmus measures 5 mm. The hypoechoic 7 mm nodule previously measured 6 mm and is unchanged. IMPRESSION: Stable thyroid nodules. Reviewed, Interpreted and Dictated by Bee Moffett MD Transcribed by Hetal Nunez Authenticated and [facility]
[2025-10-02 10:20] LABS: Free T4 (Free Thyroxine) 1.21 ng/dl (0.78-2.19)
[2025-10-02 10:21] LABS: Thyroid Stimulating Hormone 2.10 uIU/mL (0.465-4.68)
== END 2025-10-02 23:59 | disposition home or self-care (01) ==
PROVIDERS: Nurse Practitioner; PCP Family Medicine; Visit Provider Nurse Practitioner Family
DX: E04.2 Nontoxic multinodular goiter (principal); I37.1 Nonrheumatic pulmonary valve insufficiency; I51.7 Cardiomegaly; R93.1 Abnormal findings on diagnostic imaging of heart and coronary circulation
CPT/HCPCS: 36415; 76536; 84439; 84443; 93306

== ENCOUNTER 2025-10-03 09:44 | Outpatient (CLI) | payer BC, SELFPAY ==
--- OUTSIDE RECORDS SUMMARY | 2025-03-02 04:15 | XMS_ITS ---
Author Organization [facility] Address [address] [phone] Care Team Providers Care Programs Director Name Role Phone Jordyn Rincon Primary Care Provider [phone] Daphne Raza [phone] Allergies Allergen (clinical drug ingredient) Drug/Non Drug [...] Interpretation:Normal Performing Lab: Notes/Report: Test performed by [facility], [facility] [address] [place] [address] , [place] [address] Luisito Torres MD, Agile Scrum Master CLIA: [id number] Vitamin B12 445 387-2902 pg/mL P-Comprehensive Metabolic Pa lili (CMP) Reviewed date:03/16/2025 01:30:54 PM Interpretation:Normal Performing Lab: Notes/Report: Test performed by [facility] [address] [place] [address] , [facility] [place] [address] Luisito Torres MD, Agile Scrum Master CLIA: [id number] Sodium 139 135-145 mmol/L Potassium 4.5 3.5-5.3 [...] Interpretation:Normal Performing Lab: Notes/Report: Test performed by [facility] [address] [place] [address] , [address], [place] [address] Luisito Torres MD, Agile Scrum Master CLIA: [id number] TSH reflex to FT4 2.61 0.43-5.25 mU/L [...] Status W/U Status Risk Notes Problem Paresthesia (37105562) Paresthesia (R20.2) Active confirmed Vital Signs Blood pressure systolic 112 mm Hg 03/02/20 25 Blood pressure diastolic 70 mm Hg 025 Heart Rate 67 /min 03/02/2025 Height 67 in 03/02/2025 Weight 291.8 lbs 03/02/2025 BMI 45.7 kg/m2 03/02/2025 Encounters Encounter Location Date Provider Diagnosis [facility] [address] [facility] [address] [place] [id number] 03/02/2025 Daphne Raza History of DVT (deep [...] * ILENE HENSONDOB:[birth year] (49 yo F)Acc No.[id number]:03/02/2025 Progress Notes Patient: ILENE SAAB Provider: CECE Almaraz :1975 A ge:49 Y S ex:Female Date:03/02/2025 Address:[address] [place] [address] , [id number] Pcp:Jordyn Rincon Subjective: * Chief Complaints: * [...] AM)?Normal* Value Reference Range V itamin B12 [phone] - pg/mL * Yanna Miller 03/10/2025 11:4 [...] 8 5610 PROTHROMBIN TIME, Modifiers: QW , 06390 CBC WITH AUTO DIFF, 3074F SYST BP LT 130 MM HG, 3078F DIAST BP < 80 MM HG * Follow Up: 4 Weeks * Images: Billing Information: * Visit Code: 05263 Office Visit, Est Pt., Level 3. * Procedure Codes: 07956 PROTHROMBIN TIME. Modifiers: QW 46013 CBC WITH AUTO DIFF. 3074F SYST BP LT 130 MM HG. 3078F DIAST BP < 80 MM HG. * Electronic signature of CECE Dumont on 10/03/2025 at 09:47 AM EST Sign off status: Pending * Provider: CECE Almaraz Date: 0 03/02/2025 Generated for Gabbii ng/Tressa/eTransmitting on: 1 12/03/2024 09:47 AM EST History and Physical Notes * [...]
--- OUTSIDE RECORDS SUMMARY | 2025-03-30 06:30 | XMS_ITS ---
Author Organization [facility] Address [address] [facility] [address] [phone] Care Team Providers Care Moccasin Sewer Name Role Phone Jordyn Rincon Primary Care Provider Daphne Raza Unavailable [phone] Allergies Allergen (clinical drug ingredient) Drug/Non Drug [...] Orally Once a day Active Vital Signs Blood pressure systolic 120 mm Hg 03/30/20 25 Blood pressure diastolic 74 mm Hg 025 Heart Rate 60 /min 03/30/2025 Height 67 in 03/30/2025 Weight 292.6 lbs 03/30/2025 BMI 45.82 kg/m2 03/30/2025 Encounters Encounter Location Date Provider Diagnosis [facility] [address] [facility] [address] [place] [id number] 03/30/2025 Daphne Ry History of DVT (deep vein thrombosis) Z86.718 Assessments Encounter Date Diagnosis (ICD Code) Assessment Notes Treatment Notes Treatment Clinical Notes Section Notes 03/30/2025 History of DVT (deep vein thrombosis) (ICD-10 - Z86.718) Plan Of Treatment Next Appt Details Follow Up: 1 Week, Reason: Progress Notes * ILENE SPANNDOB:[birth year] (49 yo F)Acc No.[id number]:03/30/2025 Progress Notes Patient: ILENE SAAB Provider: CECE Almaraz :1975 A ge:49 Y S ex:Female Date:03/30/2025 Address:[address] [place] [address] , [id number] Pcp:Jordyn Rincon Subjective: * Chief Complaints: * [...] 8 5610 PROTHROMBIN TIME, Modifiers: QW , 13436 CAPILLARY BLOOD DRAW * Follow Up: 1 Week * Images: Billing Information: * Visit Code: 34083 Office Visit, Est Pt., Level 2. * Procedure Codes: 85242 PROTHROMBIN TIME. Modifiers: QW 34381 CAPILLARY BLOOD DRAW. * Electronic signature of CECE Dumont on 10/03/2025 at 09:47 AM EST Sign off status: Pending * Provider: CECE Almaraz Date: 0 03/30/2025 Generated for Segundo roberts/Tressa/eTransmitting on: 1 12/03/2024 09:47 AM EST History and Physical Notes * HPI (History of Present Illness) Category Sub-Category Detail Notes Category Not es Hematology PT/INR due for PT/INR Examination Category Sub-Category Detail Notes Category Not es General Examination General Appearance: NAD , ap pears healthy , Color good
--- OUTSIDE RECORDS SUMMARY | 2025-04-06 05:30 | XMS_ITS ---
Author Organization [facility] Address 1210 [facility] [address] [phone] Care Team Providers Care Candy Decorator Name Role Phone Jordyn Rincon Primary Care Provider [phone] Daphne Raza Unavailable [phone] Allergies Allergen (clinical drug ingredient) Drug/Non Drug [...] 04/06/2025 Encounters Encounter Location Date Provider Diagnosis [facility] [address] [facility] [address] [place] [id number] 04/06/2025 Daphne Ry History of DVT (deep vein thrombosis) Z86.718 Assessments Encounter Date Diagnosis (ICD Code) Assessment Notes Treatment Notes Treatment Clinical Notes Section Notes 04/06/2025 History of DVT (deep vein thrombosis) (ICD-10 - Z86.718) Plan Of Treatment Next Appt Details Follow Up: 2 Weeks, Reason: Progress Notes * ILENE HENSONDOB:[birth year] (49 yo F)Acc No.[id number]:04/06/2025 Progress Notes Patient: ILENE SAAB Provider: CECE Almaraz :1975 A ge:49 Y S ex:Female Date:04/06/2025 Address:[address] [place] [address] , [place] [id number] Pcp:Jordyn Rincon Subjective: * Chief Complaints: * [...] 8 5610 PROTHROMBIN TIME, Modifiers: QW , 39741 CAPILLARY BLOOD DRAW, 1036F TOBACCO NON-USER, G8752 MOST RECENT SYSTOLIC BP < 140MM HG, G8754 MOST RECENT DIASTOLIC BP < 90MM HG * Follow Up: 2 Weeks * Images: Billing Information: * Visit Code: 37812 Office Visit, Est Pt., Level 2. * Procedure Codes: 12494 PROTHROMBIN TIME. Modifiers: QW 70248 CAPILLARY BLOOD DRAW. 1036F TOBACCO NON-USER. G8752 MOST RECENT SYSTOLIC BP < 140MM HG. G8754 MOST RECENT DIASTOLIC BP < 90MM HG. * Electronic signature of CECE Dumont on 10/03/2025 at 09:49 AM EST Sign off status: Pending * Provider: CECE Almaraz Date: 0 04/06/2025 Generated for Segundo roberts/Tressa/Angelismitting on: 1 12/03/2024 09:49 AM EST History and Physical Notes * HPI (History of Present Illness) Category Sub-Category Detail Notes Category Not es Hematology PT/INR due for PT/INR Examination Category Sub-Category Detail Notes Category Not es General Examination General Appearance: NAD , ap pears healthy , Color good
--- OUTSIDE RECORDS SUMMARY | 2025-04-20 05:15 | XMS_ITS ---
Author Organization [facility] Address [address] [place] [address] [phone] Care Team Providers Care Produce Buyer Name Role Phone Jordyn Rincon Primary Care Provider Daphne Raza Unavailable [phone] Allergies Allergen (clinical drug ingredient) Drug/Non Drug [...] 04/20/2025 Encounters Encounter Location Date Provider Diagnosis [place] [address] [facility] [address] [place] [id number] 04/20/2025 Daphne Ry History of DVT (deep vein thrombosis) Z86.718 Assessments Encounter Date Diagnosis (ICD Code) Assessment Notes Treatment Notes Treatment Clinical Notes Section Notes 04/20/2025 History of DVT (deep vein thrombosis) (ICD-10 - Z86.718) Plan Of Treatment Next Appt Details Follow Up: 2 Weeks, Reason: Progress Notes * ILENE HENSONDOB:[birth year] (49 yo F)Acc No.[id number]:04/20/2025 Progress Notes Patient: ILENE SAAB Provider: CECE Almaraz :1975 A ge:49 Y S ex:Female Date:04/20/2025 Address:[address] [place] [address] , [place] [id number] Pcp:Jordyn Rincon Subjective: * Chief Complaints: * [...] 8 5610 PROTHROMBIN TIME, Modifiers: QW , 68061 CAPILLARY BLOOD DRAW, 1036F TOBACCO NON-USER * Follow Up: 2 Weeks * Images: Billing Information: * Visit Code: 29188 Office Visit, Est Pt., Level 2. * Procedure Codes: 11149 PROTHROMBIN TIME. Modifiers: QW 43096 CAPILLARY BLOOD DRAW. 1036F TOBACCO NON-USER. * Electronic signature of CECE Dumont on 10/03/2025 at 09:47 AM EST Sign off status: Pending * Provider: CECE Almaraz Date: 0 04/20/2025 Generated for Segundo roberts/Tressa/eTransmitting on: 1 12/03/2024 [...]
--- OUTSIDE RECORDS SUMMARY | 2025-05-04 04:00 | XMS_ITS ---
Author Organization [facility] Address [address] [facility] [address] [place] [phone] Care Team Providers Care Filler Machine Operator Name Role Phone Jordyn Rincon Primary Care Provider Daphne Raza Unavailable [phone] Allergies Allergen (clinical drug ingredient) Drug/Non Drug [...] Notes Problem Long-term current use of anticoagulant (081907492) Anticoagulant long-term use (Z79.01) Active confirmed Problem Seasonal allergic rhinitis (936987531) Other seasonal allergic rhinitis (J30.2) Active confirmed Vital Signs Blood pressure systolic 100 mm Hg 06/26/20 25 Blood pressure diastolic 70 mm Hg 025 Heart Rate 67 /min 05/04/2025 Height 67 in 05/04/2025 Weight 291.8 lbs 05/04/2025 BMI 45.7 kg/m2 05/04/2025 Encounters Encounter Location Date Provider Diagnosis [facility] [address] [place] [id number] 05/04/2025 Daphne Raza History of DVT (deep [...] * ILENE SPANNDOB:[birth year] (49 yo F)Acc No.[id number]:05/04/2025 Progress Notes Patient: ILENE SAAB Provider: CECE Almaraz :1975 A ge:49 Y S ex:Female Date:05/04/2025 Address:[address] [place] [address] , [facility] Pcp:Jordyn Rincon Subjective: * Chief Complaints: * 1 . 2 weeks. * HPI: H ematology: 49 year old female presents with c/o PT/INR d ue for PT/INR. Pt states she is taking Warfarin 2.5 mg on Saturday and 5 mg all other days. Pt states she is needing a refill for Claritin sent to [facility] in [place] for a 90 days supply. Denies : [...] 8 5610 PROTHROMBIN TIME, Modifiers: QW , 36263 CAPILLARY BLOOD DRAW * Follow Up: 1 Week * Images: Billing Information: * Visit Code: 62376 Office Visit, Est Pt., Level 3. * Procedure Codes: 61104 PROTHROMBIN TIME. Modifiers: QW 30436 CAPILLARY BLOOD DRAW. * Electronic signature of CECE Dumont on 10/03/2025 at 09:48 AM EST Sign off status: Pending * Provider: CECE Almaraz Date: 0 05/04/2025 Generated for Segundo roberts/Tressa/eTransmitting on: 1 12/03/2024 09:48 AM EST History and Physical Notes * HPI (History of Present Illness) Category Sub-Category Detail Notes Category Not es Hematology epistaxis hematuria Bruising Bleeding PT/INR due for PT/INR. Pt s tates she is taking Warfarin 2.5 mg on Thursday and 5 mg all other days. Pt states she is needing a refill for Claritin sent to [facility] in [place] for a 90 days supply Examination Category Sub-Category Detail Notes Category Not es General Examination General Appearance: NAD, reji ears healthy, Color good
--- OUTSIDE RECORDS SUMMARY | 2025-05-11 04:45 | XMS_ITS ---
Author Organization [facility] Address [address] [facility] 36 [facility] [address] [place] [phone] Care Team Providers Care Chemistry Faculty Member Name Role Phone Jordyn Rincon Primary Care Provider [phone] Daphne Raza Unavailable [phone] Allergies Allergen (clinical drug ingredient) Drug/Non Drug Allergy documented on EMR Reaction Allergy Type Onset Date Status Substance with penicillin structure and antibacterial mechanism of action (substance) Penicillins Unknown Drug Allergy Active Results Component Value Reference Range Notes PT/INR (in house) Reviewed date:05/11/2025 04:55:02 PM Interpretation:2.5 Performing Lab: Notes/Report: 2.5 PT 30.0 INR 2.5 current dose 2.5mg m/f and 5mg aod new dose same next check 2 weeks ideal INR 2-3 REASON FOR VISIT 1 week Medications Medication SIG (Take, Route, Frequency, Duration) Notes Start Date End Date Status Mirena (52 MG) 20 MCG/DAY as directed Intrauterine Active Claritin 10 MG 1 tablet Orally Once a day; Duration: 90 days Active Irbesartan-hydroCHLOROthi azide 150-12.5 MG 1 tablet Orally Once a day Active Warfarin Sodium 5 MG 1 tablet Orally Onc e a day; Duration: 90 days Active Vital Signs Blood pressure systolic 112 mm Hg 05/11/20 25 Blood pressure diastolic 76 mm Hg 025 Heart Rate 61 /min 05/11/2025 Height 67 in 05/11/2025 Weight 292.8 lbs 05/11/2025 BMI 45.85 kg/m2 05/11/2025 Encounters Encounter Location Date Provider Diagnosis [facility] [address] [facility] [address] [place] [id number] 05/11/2025 Daphne Lozanojamar History of DVT (deep vein thrombosis) Z86.718 and Anticoagulant long-term use Z79.01 Assessments Encounter Date Diagnosis (ICD Code) Assessment Notes Treatment Notes Treatment Clinical Notes Section Notes 05/11/2025 History of DVT (deep vein thrombosis) (ICD-10 - Z86.718) 05/11/2025 Anticoagulant long-term use (ICD-10 - Z79.01) Patient will have to remain on coumadin. Will order an mdINR machine so she can check her levels at home. Plan Of Treatment Treatment Notes Assessment Notes Anticoagulant long-term use Patient will have to remain on coumadin. Will order an mdINR machine so she can check her levels at home. Next Appt Details Follow Up: 2 Weeks, Reason: Progress Notes * ILENE SPANNDOB:[birth year] (49 yo F)Acc No.[id number]:05/11/2025 Progress Notes Patient: VIET SAABNIFER Provider: CECE Almaraz :1975 A ge:49 Y S ex:Female Date:05/11/2025 Address:[address] [place], [place] [phone] Pcp:Jordyn Rincon Subjective: * Chief Complaints: * 1 . 1 week. * HPI: H ematology: 49 year old female presents with c/o PT/INR P t is taking Warfarin 2.5 mg on Mon and Fri and 5 mg all other days. Denies [...] ouside US: no. * Medications: T aking Mirena (52 MG) 20 MCG/DAY Intrauterine Device as directed Intrauterine , Taking Irbesartan-hydroCHLOROthiazide 150-12.5 MG Tablet 1 tablet Orally Once a day , Taking Warfarin Sodium 5 MG Tablet 1 tablet Orally Once a day , Taking Claritin 10 MG Tablet 1 tablet Orally Once a day , Medication List reviewed and reconciled with the patient * Allergies: P enicillins. Objective: * Vitals: W t: 292.8, Temp: 98.0, BP: 112/76, HR: 61, Nurse: eryn, Ht: 67, BMI:45.85. * Examination: G eneral Examination: General Appearance: N AD, appears healthy, Color good. Assessment: * Assessment: 1. H istory of DVT (deep vein thrombosis) - Z86.718 (Primary) 2 . A nticoagulant long-term use - Z79.01 Plan: * Treatment: Value Reference Range P T 30.0 * I NR 2.5 * c urrent dose 2.5mg m/f and 5mg aod * n ew dose same * n ext check 2 weeks * i deal INR 2-3 * Ca Gay 05/11/2025 09: 51:00 AM EDT > Provider reviewed results while patient in office.Daphne Raza 05/11/2025 04:54:59 PM EDT > 2.?Anticoagulant long-term use? Notes: Patient will have to remain on coumadin. Will order an mdINR machine so she can check her levels at home.?? * Procedure Codes: 8 5610 PROTHROMBIN TIME, Modifiers: QW , 96814 CAPILLARY BLOOD DRAW, 1036F TOBACCO NON-USER, G8783 BP SCR PRFRM RCMDD DEFIND SCR INTVL, G8752 MOST RECENT SYSTOLIC BP < 140MM HG, G8754 MOST RECENT DIASTOLIC BP < 90MM HG * Follow Up: 2 Weeks * Images: Billing Information: * Visit Code: 44885 Office Visit, Est Pt., Level 2. * Procedure Codes: 94465 PROTHROMBIN TIME. Modifiers: QW 05228 CAPILLARY BLOOD DRAW. 1036F TOBACCO NON-USER. G8783 BP SCR PRFRM RCMDD DEFIND SCR INTVL. G8752 MOST RECENT SYSTOLIC BP < 140MM HG. G8754 MOST RECENT DIASTOLIC BP < 90MM HG. * Electronic signature of CECE Dumont on 10/03/2025 at 09:48 AM EST Sign off status: Pending * Provider: CECE lAmaraz Date: 0 05/11/2025 Generated for Segundo roberts/Tressa/eTransmitting on: 1 12/03/2024 09:48 AM EST History and Physical Notes * HPI (History of Present Illness) Category Sub-Category Detail Notes Category Not es Hematology epistaxis hematuria Bruising Bleeding PT/INR Pt is taking Warfari n 2.5 mg on Mon and Fri and 5 mg all other days Examination Category Sub-Category Detail Notes Category Not es General Examination General Appearance: NAD, reji ears healthy, Color good
--- OUTSIDE RECORDS SUMMARY | 2025-05-25 05:00 | XMS_ITS ---
Author Organization [facility] Address [address] [place] [phone] Care Team Providers Care Scale Assembly Set Up Worker Name Role Phone Jordyn Rincon Primary Care Provider [phone] Daphne Raza [phone] REASON FOR VISIT 2 week f/u Encounters Encounter Location Date Provider Diagnosis [facility] [address] [place] [phone] 05/25/2025 Daphne Raza Plan Of Treatment No Information Progress Notes * ILENE SPANNDOB:[birth year] (49 yo F)Acc No.[id number]:05/25/2025 Progress Notes Patient: Tyesha FLOWERSDANIELA ILENE Provider: CECE Almaraz :1975 A ge:49 Y S ex:Female Date:05/25/2025 Address:[address] [place], [place] [phone] Pcp:Jordyn Rincon Subjective: * Chief Complaints: * 1 . 2 week f/u. * Medical History: Objective: * Vitals: Assessment: Plan: * Treatment: * Images: Billing Information: * Visit Code: * Procedure Codes: * Electronic signature of CECE Dumont on 10/03/2025 at 09:49 AM EST Sign off status: Pending * Provider: CECE Almaraz Date: 0 05/25/2025 Generated for Printi ng/Faxing/eTransmitting on: 12/03/2024 09:49 AM EST
--- OUTSIDE RECORDS SUMMARY | 2025-06-24 05:00 | XMS_ITS ---
Author Organization [facility] Address 1210 [facility] 36 [facility] [address] [place], [place] [phone] Care Team Providers Care Marzipan Molder Name Role Phone Jordyn Rincon Primary Care Provider Ernie Fleming Unavailable [phone] Allergies Allergen (clinical drug ingredient) Drug/Non Drug Allergy documented on EMR Reaction Allergy Type Onset Date Status Substance with penicillin structure and antibacterial mechanism of action (substance) Penicillins Unknown Drug Allergy Active REASON FOR VISIT eye irritation Medications Medication SIG (Take, Route, Frequency, Duration) Notes Start Date End Date Status Mirena (52 MG) 20 MCG/DAY as directed Intrauterine Active Warfarin Sodium 5 MG 1 tablet Orally Onc e a day; Duration: 90 days Active Azelastine HCl 0.05 % 1 drop into affect ed eye Ophthalmic Twice a day 06/24/2025 Active Claritin 10 MG 1 tablet Orally Once a day; Duration: 90 days Active Irbesartan-hydroCHLOROthi azide 150-12.5 MG 1 tablet Orally Once a day Active Vital Signs Blood pressure systolic 120 mm Hg 06/24/20 25 Blood pressure diastolic 80 mm Hg 025 Heart Rate 72 /min 06/24/2025 Height 67 in 06/24/2025 Weight 294.4 lbs 06/24/2025 BMI 46.1 kg/m2 06/24/2025 Encounters Encounter Location Date Provider Diagnosis [facility] [address] [facility] [address] [place] [phone] 06/24/2025 Ernie Fleming Allergic conjunctivi tis of right eye H10.11 Assessments Encounter Date Diagnosis (ICD Code) Assessment Notes Treatment Notes Treatment Clinical Notes Section Notes 06/24/2025 Allergic conjunctivitis of right eye (ICD-10 - H10.11) Plan Of Treatment Medication Medication Name Sig Start Date Stop Date Notes Azelastine HCl 0.05 % 1 drop into affect ed eye Ophthalmic Twice a day 06/24/2025 Next Appt Details Follow Up: via phone to repo rt progress, Reason: Progress Notes * ILENE HENSONDOB:[birth year] (49 yo F)Acc No.[id number]:06/24/2025 Progress Notes Patient: ILENE SAAB Provider: Amrita Fleming M.D. :1975 A ge:49 Y S ex:Female Date:06/24/2025 Address:[address] [place] [address] Pcp:Jordyn Rincon Subjective: * Chief Complaints: * 1 . Eye irritation. * HPI: O pthalmology: 49 year old female presents with c/o redness r ight eye. Pt states she woke up this morning with redness in the right eye. SHe states these symptoms are similar to her previous allergic conjunctivitis. * ROS: D ERMATOLOGY: no R lupe. [...] P enicillins. Objective: * Vitals: W t: 294.4, Temp: 98.3, BP: 120/80, HR: 72, Nurse: ELDA, Ht: 67, BMI:46.1. * Examination: G eneral Examination: General Appearance: N AD. H EENT: P ERRLA, conjunctival injection of right eye. Assessment: * Assessment: 1. A llergic conjunctivitis of right eye - H10.11 (Primary) Plan: * Treatment: * Follow Up: v ia phone to report progress * Images: Billing Information: * Visit Code: 02912 Office Visit, Est Pt., Level 3. * Procedure Codes: * Electronic signature of Marquita Fleming MD on 10/03/2025 at 09:48 AM EST Sign off status: Pending * Provider: Amrita Fleming M.D. Date: 0 06/24/2025 Generated for Segundo roberts/Tressa/Kiran on: 12/03/2024 09:48 AM EST History and Physical Notes * HPI (History of Present Illness) Category Sub-Category Detail Notes Category Not es Opthalmology redness right eye. Pt st ates she woke up this morning with redness in the right eye. SHe states these symptoms are similar to her previous allergic conjunctivitis Examination Category Sub-Category Detail Notes Category Not es General Examination HEENT: PERRLA, conj unctival injection of right eye General Appearance: NAD
--- OUTSIDE RECORDS SUMMARY | 2025-07-03 04:30 | XMS_ITS ---
Author Organization [facility] Address [address] [facility] [address] [place] [phone] Care Team Providers Care Interpreter Translator Name Role Phone Jordyn Rincon Primary Care Provider Katiuska Sharpe Unavailable [phone] Allergies Allergen (clinical drug ingredient) Drug/Non Drug [...] Interpretation:Normal Performing Lab: Notes/Report: Test performed by [employer], [facility] [address] [place] [address] , [address], [place] [address] Luisito Torres MD, Melt House Supervisor CLIA: [id number] Sodium 139 135-145 mmol/L Potassium 4.2 3.5-5.3 [...] 104 Performing Lab: Notes/Report: Test performed by [employer], [address] , [place] [address] Luisito Torres MD, Melt House Supervisor CLIA: [id number] Cholesterol 213 <200 mg/dL Triglycerides 104 <150 [...] Body mass index 40+ - severely obese (327116334) Adult BMI 45.0-49.9 kg/sq m (Z68.42) Active confirmed Problem Mixed anxiety and depressive disorder (556061170) Depression with anxiety (F41.8) Active confirmed Vital Signs Blood pressure systolic 128 mm Hg 07/03/20 25 Blood pressure diastolic 78 mm Hg 025 Heart Rate 60 /min 07/03/2025 Height 67 in 07/03/2025 Weight 291 lbs 07/03/2025 BMI 45.57 kg/m2 07/03/2025 Encounters Encounter Location Date Provider Diagnosis Vijaya [address] [facility] [address] [place] [id number] 07/03/2025 Katiuska Sharpe History of DVT (deep vein thrombosis) Z86.718 ; Heterozygous for prothrombin U88756X mutation D68.52 ; Anticoagulant long-term use Z79.01 ; Lipid screening Z13.220 ; Environmental allergies Z91.048 ; Adult BMI 45.0-49.9 kg/sq m Z68.42 ; Depression with anxiety F41.8 and HTN (hypertension) I10 Assessments Encounter Date Diagnosis (ICD Code) Assessment Notes Treatment Notes Treatment Clinical Notes Section Notes 07/03/2025 History of DVT (deep vein thrombosis) (ICD-10 - Z86.718) 07/03/2025 Heterozygous for prothrombin W71410A mutation (ICD-10 - D68.52) she continue to follow with Dr. Bernal 07/03/2025 Anticoagulant long-term use (ICD-10 - Z79.01) she continues [facility] INR home monitoring weekly as is required by the [employer] 07/03/2025 Lipid screening (ICD-10 - Z13.220) 07/03/2025 [...] Treatment Notes Assessment Notes Heterozygous for prothrombin [id number] mutation she continue to follow with Dr. Bernal Anticoagulant long-term use she continue s [facility] INR home monitoring weekly as is required [...] * ILENE SPANNDOB:[birth year] (49 yo F)Acc No.[id number]:07/03/2025 Progress Notes Patient: ILENE SAAB Provider: LAKHWINDER Bradford :1975 A ge:49 Y S ex:Female Date:07/03/2025 Address:[address] [place] [address] Pcp:Jordyn Rincon Subjective: * Chief Complaints: * [...] (Primary) 2 . H eterozygous for prothrombin J49863B mutation - D68.52 3 . A nticoagulant [...] AM EDT >see encounter 2.?Heterozygous for prothrombin A68791O mutation?LAB: P-Comprehensive Metabolic Panel (CMP) (Collection Date [...] Orally, Once a day.?? Notes: she continues [facility] INR home monitoring weekly as is required [...] Codes: 8 5025 CBC WITH AUTO DIFF, 57898 VENIPUNCT, ROUTINE*, 1036F TOBACCO NON-USER, 3074F SYST BP LT 130 MM HG, 3078F DIAST BP < 80 MM HG * Follow Up: 6 Months,and prn * Images: Billing Information: * Visit Code: 83990 Office Visit, Est Pt., Level 4. * Procedure Codes: 06456 CBC WITH AUTO DIFF. 31904 VENIPUNCT, ROUTINE*. 1036F TOBACCO NON-USER. 3074F SYST BP LT 130 MM HG. 3078F DIAST BP < 80 MM HG. * Electronic signature of Ny Sharpe APRN on 10/03/2025 at 09:48 AM EST Sign off status: Pending * Provider: LAKHWINDER Bradford Date: 0 07/03/2025 Generated for Segundo roberts/Tressa/Jluisitting on: 1 12/03/2024 09:48 AM EST History [...]
--- OUTSIDE RECORDS SUMMARY | 2025-10-03 09:47 | XMS_ITS | Patient Health Record ---
[facility] [address] [facility] [address] [id number] Care Team Providers Care Lightning Rod Erector Name Role Phone Jordyn Rincon Primary Care Provider [phone] Salvatore Babb Unavailable [phone] Ernie Fleming Unavailable [phone] Katiuska Sharpe Unavailable [phone] Daphne Raza Unavailable [phone] Allergies Allergen (clinical drug ingredient) Drug/Non Drug [...] date:03/16/2025 01:31:05 PM Interpretation:Normal Performing Lab: Notes/Report: CLIA: [id number] Luisito Torres MD, Cardiac Exercise Physiologist [address] [place] [address] , [place] [address] Test performed by [facility] Vitamin B12 927 582-8266 pg/mL P-Comprehensive Metabolic Pa lili (CMP) Reviewed date:03/16/2025 01:30:54 PM Interpretation:Normal Performing Lab: Notes/Report: Test performed by [facility] [address] [place] [address] , [place] [address] Luisito Torres MD, Cardiac Exercise Physiologist CLIA: [id number] Sodium 139 135-145 mmol/L Potassium 4.5 3.5-5.3 [...] Interpretation:Normal Performing Lab: Notes/Report: Test performed by [facility] [address] [place] [address] , [place] [address] Luisito Torres MD, Cardiac Exercise Physiologist CLIA: [id number] TSH reflex to FT4 2.61 0.43-5.25 mU/L PT/INR (in house) Reviewed date:05/04/2025 09:51:14 AM Interpretation: Performing Lab: Notes/Report: PT 40.4 INR 3.4 current dose 2.5mg Sat,5 mg oad new dose 2.5mg M,F and 5mg AOD next check 1 week ideal INR 2-3 Mammogram Reviewed date:08/24/2025 04:57:10 PM Interpretation:Negative Performing Lab: Notes/Report: Negative PT/INR Reviewed date:07/28/2025 12:45:13 PM Interpretation: Performing [...] 4 weeks ideal INR 2-3 PT/INR Reviewed date:08/24/2025 [...] 08:58:38 AM Interpretation:Normal Performing Lab: Notes/Report: CLIA: [id number] Luisito Torres MD, Cardiac Exercise Physiologist [address] [place] [address] , [address], [place] [address] Test performed by [facility], [facility] Sodium 139 135-145 mmol/L Potassium 4.2 3.5-5.3 [...] 104 Performing Lab: Notes/Report: Test performed by [facility], [address] , [address], [place] [address] Luisito Torres MD, Cardiac Exercise Physiologist CLIA: [id number] Cholesterol 213 <200 mg/dL Triglycerides 104 <150 [...] Units: mg/dL % Change: +27% PT/INR Reviewed date:06/01/2025 12:28:44 PM Interpretation:3.0 Performing Lab: Notes/Report: 3.0 INR 3.0 current dose 2.5 mg MF and 5 mg AOD next check 1 week ideal INR 2-3 PT/INR Reviewed date:06/07/2025 01:44:54 PM Interpretation:2.9 Performing Lab: Notes/Report: 2.9 INR 2.9 current dose 2.5 mg MF and 5 mg AOD new dose same next check 2 weeks ideal INR 2-3 PT/INR Reviewed date:09/07/2025 11:39:06 AM Interpretation: Performing Lab: Notes/Report: INR 2.6 current dose 2.5 mg MF and 5 mg AOD new dose same ideal INR 2-3 CBC Venipuncture (in house) [...] date:01/06/2025 03:11:24 PM Interpretation:Normal Performing Lab: Notes/Report: CLIA: [id number] Luisito Torres MD, Cardiac Exercise Physiologist [address] [place] [address] [address] [place] [address] Test performed by [facility] Sodium 140 135-145 mmol/L Potassium 4.2 3.5-5.3 [...] 134 Performing Lab: Notes/Report: Test performed by [facility] [address] [facility] , [address], [place] [address] Luisito Torres MD, Cardiac Exercise Physiologist CLIA: [id number] Cholesterol 181 <200 mg/dL Triglycerides 93 <150 [...] Results: 115 Units: mg/dL % Change: - Urinalysis - Inhouse Reviewed date:01/24/2025 05:34:46 PM [...] 05:34:46 PM Interpretation:Normal Performing Lab: Notes/Report: CLIA: [id number] Luisito Torres MD, Cardiac Exercise Physiologist [facility] [facility] , [address], [place] [address] Test performed by [address] [facility], [facility] Sodium 138 135-145 mmol/L Potassium 4.4 3.5-5.3 [...] Ratio 1.8 1.1-2.5 PT/INR (in house) Reviewed date:04/21/2025 01:22:53 PM [...] Status W/U Status Risk Notes Problem Hypertension (85356322) HTN (hypertension) (I10) Active confirmed Problem History of DVT (deep vein thrombosis) (282360569) History of DVT (deep vein thrombosis) (Z86.718) Active confirmed Problem Seasonal allergy (492007042) Seasonal allergies (J30.2) Active confirmed Problem Environmental allergy (267619111) Environmental allergies (Z91.048) Active confirmed Problem Paresthesia (61021595) Paresthesia (R20.2) Active confirmed Problem Mixed anxiety and depressive disorder (358470601) Depression with anxiety (F41.8) Active confirmed Problem Seasonal allergic rhinitis (793984950) Other seasonal allergic rhinitis (J30.2) Active confirmed Problem Thyroid nodule (424580190) Thyroid nodule (E04.1) Active confirmed Problem Morbid obesity (943576565) Obesity, Class III, BMI 40-49.9 (morbid obesity) (E66.01) Active confirmed Problem Long-term current use of anticoagulant (056375086) Anticoagulant long-term use (Z79.01) Active confirmed Problem Posterior rhinorrhea (90404901) PND (post-nasal drip) (R09.82) Active confirmed Problem Acute upper respiratory infection (43317206) Upper respiratory infection with cough and congestion (J06.9) Active confirmed Problem Body mass index 40+ - severely obese (046446600) Adult BMI 45.0-49.9 kg/sq m (Z68.42) Active confirmed Problem 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 Vital Signs Heart Rate 60 /min 07/03/2025 Blood pressure diastolic 78 mm Hg 07/03/2025 Height 67 in 07/03/2025 Blood pressure systolic 128 mm Hg 07/03/2025 Weight 291 lbs 07/03/2025 BMI 45.57 kg/m2 07/03/2025 Encounters Encounter Location Date [facility] [address] [place] [id number] 01/02/2025 Katiuska Sharpe Diabetes mellitus screening Z13.1 ; HTN (hypertension) I10 ; URI (upper respiratory infection) J06.9 ; Head congestion R09.81 ; Lipid screening Z13.220 and Obesity, Class III, BMI 40-49.9 (morbid obesity) E66.01 [facility] [address] [place] [id number] 01/23/2025 R Barry Babb HTN (hypertension) I 10 [facility] [address] [place] [id number] 01/26/2025 R Barry Babb History of DVT (deep vein thrombosis) Z86.718 ; Heterozygous for prothrombin [id number] mutation D68.52 and Seasonal allergies J30.2 [facility] [address] [place] [id number] 02/03/2025 Daphne Crowdy History of DVT (deep vein thrombosis) Z86.718 and Heterozygous for prothrombin [id number] mutation D68.52 [facility] [address] [place] [id number] 02/09/2025 Daphne Crowdy History of DVT (deep vein thrombosis) Z86.718 and Heterozygous for prothrombin B99880I mutation D68.52 [facility] [address] [place] [id number] 02/16/2025 Daphne Crowdy History of DVT (deep vein thrombosis) Z86.718 and Heterozygous for prothrombin [id number] mutation D68.52 [facility] [address] [place] [id number] 03/02/2025 Daphne Crowdy History of DVT (deep vein thrombosis) Z86.718 ; Paresthesia R20.2 and Persistent cough R05.3 [facility] [address] [place] [id number] 03/30/2025 Daphne Crowdy History of DVT (deep vein thrombosis) Z86.718 [facility] [address] [facility] [address] [place], [place] [id number] 04/06/2025 Daphne Crowdy History of DVT (deep vein thrombosis) Z86.718 [facility] [address] [place], [place] [id number] 04/20/2025 Daphne Crowdy History of DVT (deep vein thrombosis) Z86.718 [facility] [address] [place], [place] [id number] 05/04/2025 Daphne Crowdy History of DVT (deep vein thrombosis) Z86.718 ; Anticoagulant long-term use Z79.01 and Other seasonal allergic rhinitis J30.2 [facility] [address] [place], [place] [id number] 05/11/2025 Daphne Crowdy History of DVT (deep vein thrombosis) Z86.718 and Anticoagulant long-term use Z79.01 [facility] [address] [place], [place] [id number] 06/24/2025 Ernie [place] Allergic conjunctivi tis of right eye H10.11 [facility] [address] [place], [place] [id number] 07/03/2025 Katiuska Sharpe History of DVT (deep vein thrombosis) Z86.718 ; Heterozygous for prothrombin M16089G mutation D68.52 ; Anticoagulant long-term use Z79.01 ; Lipid screening Z13.220 ; Environmental allergies Z91.048 ; Adult BMI 45.0-49.9 kg/sq m Z68.42 ; Depression with anxiety F41.8 and HTN (hypertension) I10 [facility] [address] [facility] [address] [place], [place] [id number] 01/24/2025 Jordyn Rincon [facility] [address] [place], [place] [id number] 04/16/2025 Jordyn Rincon [facility] [address] [place], [place] [id number] 05/01/2025 Jordyn Rincon [facility] [address] [place], [place] [id number] 05/09/2025 Jordyn Laura Sergey [facility] [address] [place], [place] [id number] 05/23/2025 Jordyn Valentín Rincon [facility] [address] [place], [place] [id number] 07/03/2025 Jordyn Valentín Rincon [facility] [address] [place], [place] [id number] 07/17/2025 Katiuska Sharpe [facility] [address] [place], [place] [id number] 07/24/2025 Jordyn Valentín Ricnon Colon cancer screeni ng Z12.11 and Breast cancer screening Z12.31 [facility] [address] [place], [place] [id number] 07/27/2025 Daphne Raza Assessments Encounter Date Diagnosis (ICD Code) Assessment Notes Treatment Notes Treatment Clinical Notes Section Notes 01/02/2025 HTN (hypertension) (ICD-10 - I10) 01/02/2025 Diabetes mellitus screening (ICD-10 - Z13.1) 01/23/2025 HTN (hypertension) (ICD-10 - I10) 01/26/2025 History of DVT (deep vein thrombosis) (ICD-10 - Z86.718) 01/26/2025 Heterozygous for prothrombin [id number] mutation (ICD-10 - D68.52) 02/03/2025 History of DVT (deep vein thrombosis) (ICD-10 - Z86.718) 02/03/2025 Heterozygous for prothrombin E60623I mutation (ICD-10 - D68.52) 02/09/2025 History of DVT (deep vein thrombosis) (ICD-10 - Z86.718) 02/09/2025 Heterozygous for prothrombin Y61382O mutation (ICD-10 - D68.52) 02/16/2025 History of DVT (deep vein thrombosis) (ICD-10 - Z86.718) 02/16/2025 Heterozygous for prothrombin F81925Z mutation (ICD-10 - D68.52) 03/02/2025 History of DVT (deep vein thrombosis) (ICD-10 - Z86.718) 03/02/2025 Paresthesia (ICD-10 - R20.2) 03/30/2025 History of DVT (deep vein thrombosis) [...] (ICD-10 - Z86.718) 07/03/2025 Heterozygous for prothrombin Z08109H mutation (ICD-10 - D68.52) she continue to follow with Dr. Bernal 07/24/2025 Colon cancer screening (ICD-10 - Z12.11) 07/24/2025 Breast cancer screening (ICD-10 - Z12.31) 07/03/2025 Anticoagulant long-term use (ICD-10 - Z79.01) she continues [facility] INR home monitoring weekly as is required by the machine company 05/11/2025 Anticoagulant long-term use (ICD-10 - Z79.01) Patient will have to remain on coumadin. Will order an mdINR machine so she can check her levels at home. 05/04/2025 Other seasonal allergic rhinitis (ICD-10 - J30.2) 03/02/2025 Persistent cough (ICD-10 - R05.3) Will start on flonase and antihistamine OTC. 01/26/2025 Seasonal allergies (ICD-10 - J30.2) OTC antihistamine of choice 01/02/2025 URI (upper respiratory infection) (ICD-10 - [...] Coverage Start Date Coverage End Date [employer] [address] [place] [address] [id number] ILENE HENSON Self - patient is the insured Medical (General) History Medical History History ICD Code left axilla DVT thyroid nodule Pneumonia obesity + heterozygous for prothrombin gene muta tion + lupus anticoagulant Surgical History Surgery Date(Month/Year) Hospitalization History Reason Date(Month/Year) pregancy 2007
[2025-10-03 10:00] VITALS: BP 138/73; BP 149/79; PULSE 63; RESP 14
--- NOTE | 2025-10-03 10:00 | CA_ITS ---
APPROVED REPORT Exam: Exercise Treadmill Technologist: Lesli Blankenship Ht: 5 ft 8 in Wt: 290 lbs BSA: 2.39 m2 HR: 63 bpm BP: 138/73 mmHg Rhythm: Sinus rhythm Indications: R/O ischemia due to chest pain Medical History Cardiac Risk Factors: HTN Stress Test Details HR Resting HR: 63 bpm Max Heart Rate (APMHR): 172.384460 bpm Target HR (85% APMHR): 146.198097 bpm Recovery HR: 115 bpm BP Resting BP: 138.0/73.0 mmHg Max BP: 155.0/73.0 mmHg Recovery BP: 149.0/79.0 mmHg ECG Resting ECG: Sinus rhythm Clinical Reason for Termination: Leg pain/Claudication Exercise duration: 6:26 min Highest Stage Achieved: Stage 3: 3.4 mph at 14% grade. Exercise capacity: 7.7 METs Stress ECG Conclusion During juan protocol pt walked 6:26 minutes. Pt experinced leg fatigue. No arrhythmias noted. Less than 0.5mm upsloping ST segment changes. 72% of PM. Electronically signed by : Marina Shabazz MD 10/08/2025 22:25:42
== END 2025-10-03 23:59 | disposition home or self-care (01) ==
LOC: RT 09:45
PROVIDERS: PCP Family Medicine; Visit Provider Nurse Practitioner Family
DX: R06.02 Shortness of breath (principal); R07.9 Chest pain, unspecified
CPT/HCPCS: 93017; 93018